=== PATIENT | male | born 1950 | race Caucasian/White ===

== ENCOUNTER 2020-07-24 13:13 | Inpatient (IN) | payer MEDICARE, MEDICAID ==
[~2020-07-24] VITALS: Ht 190.5 cm; Wt 111.9 kg
[2020-07-24 15:00] VITALS: BP 131/84
[2020-07-24] MEDS ORDERED: MAGNESIUM HYDROXIDE 2,400 MG/30 ML ORAL.SUSP. PO PRN (15:30)
[2020-07-24] MEDS ORDERED: METHYL SALICYLATE/MENTHOL TOPICAL OINTMENT 57GM TUBE. TP PRN (15:30)
[2020-07-24] MEDS ORDERED: MAG HYDROX/AL HYDROX/SIMETH 30 ML ORAL.SUSP PO PRN (15:30)
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
[2020-07-24] MEDS: NICOTINE POLACRILEX GUM 2 MG GUM. BC PRN ×2 (16:41→18:26)
--- NOTE | 2020-07-24 16:56 | NUR ---
Patient has been provided with Practical Counseling for tobacco cessation. It included a face to face interaction and the following was discussed: Recognizing danger situations, Developing coping skills,Basic cessation information. Will follow for discharge needs and discharge planning. Patient refuses and does not want to quit
[2020-07-24] MEDS: CALCIUM CARBONATE 500 MG TAB.CHEW PO PRN (18:28)
[2020-07-24 19:24] LABS: BACTERIA,URINE 0 /HPF (0-FEW); BILIRUBIN,URINE NEG (NEG); CLARITY,URINE CLEAR; COLOR,URINE YELLOW; GLUCOSE,URINE NEG (NEG); NITRITE,URINE NEG (NEG); RBC,URINE 0 /HPF (0-2); UROBILINOGEN,URINE 0.2 mg/dL (0.2 mg/dL); WBC,URINE 0 /HPF (0-4)
[2020-07-24] MEDS: LORazepam 1 MG TABLET PO SCH (19:36)
[2020-07-24] MEDS: risperiDONE 1 MG TABLET. PO SCH (19:37)
[2020-07-24] MEDS: QUEtiapine 100 MG TABLET. PO SCH (19:39)
[2020-07-24 21:03] LABS: ALBUMIN 3.6 g/dL (3.4-5.0); ALBUMIN/GLOBULIN RATIO 1.1 (1.0-1.7); CALCIUM 8.9 mg/dL (8.5-10.1); GFR 74.3; MAGNESIUM 2.4 mg/dL (1.8-2.4); POTASSIUM 3.9 mmol/L (3.5-5.1); TOTAL BILIRUBIN 0.1 mg/dL (0.2-1.0)
[2020-07-24 21:15] LABS: BASO # 0.1 x10^3/uL (0.0-0.2); BASO % 1 % (0-3); EOS # 0.2 x10^3/uL (0.0-0.7); EOS % 2 % (0-3); HEMATOCRIT 39.3 % (39.0-53.0); HEMOGLOBIN 12.9 g/dL (13.0-17.5); LYMPH # 1.3 x10^3/uL (1.0-4.8); LYMPH % 16 % (24-48); MEAN CORPUSCULAR HEMOGLOBIN 32 pg (25-35); MEAN CORPUSCULAR HGB CONC 33 g/dL (31-37); MEAN CORPUSCULAR VOLUME 98 fL (79-100); MONO # 0.9 x10^3/uL (0.0-1.1); MONO % 11 % (0-9); NEUT # 5.6 x10^3uL (1.8-7.7); NEUT % 70 % (31-73); PLATELET COUNT 327 x10^3/uL (140-400); RED BLOOD COUNT 4.01 x10^6/uL (4.30-5.70); RED CELL DISTRIBUTION WIDTH 14.5 % (11.5-14.5)
--- NOTE | 2020-07-24 21:36 | PDOC ---
Exam Note: David Note: Please also refer to the separate dictated note~for this date of service dictated separately.~Patient seen individually. Discussed the patient with Nursing staff reviewed the chart.~Reviewed interim history and current functioning. Reviewed vital signs,~Labs/ Radiology~and current medications noted below. Continue current treatment with the changes noted in the dictated addendum note Assessment: Vital Signs/I&O: Vital Signs Date Time Temp Pulse Resp B/P (MAP) Pulse Ox O2 Delivery O2 Flow Rate FiO2 07/24/20 15:00 98.8 92 18 131/84 (100) 96 Labs: Laboratory Tests Test 07/24/20 18:37 07/24/20 20:35 Urine Collection Type Unknown Urine Color Yellow Urine Clarity Clear Urine pH 6.5 Urine Specific [place] 1.015 Urine Protein Neg (NEG-TRACE) Urine Glucose (UA) Neg mg/dL (NEG) Urine Ketones (Stick) Neg mg/dL (NEG) Urine Blood Neg (NEG) Urine Nitrite Neg (NEG) Urine Bilirubin Neg (NEG) Urine Urobilinogen Dipstick 0.2 mg/dL (0.2 mg/dL) Urine Leukocyte Esterase Neg (NEG) Urine RBC 0 /HPF (0-2) Urine WBC 0 /HPF (0-4) Urine Squamous Epithelial Cells None /LPF Urine Bacteria 0 /HPF (0-FEW) White Blood Count 8.0 x10^3/uL (4.0-11.0) Red Blood Count 4.01 x10^6/uL (4.30-5.70) L Hemoglobin 12.9 g/dL (13.0-17.5) L Hematocrit 39.3 % (39.0-53.0) Mean Corpuscular Volume 98 fL (79-100) Mean Corpuscular Hemoglobin 32 pg (25-35) Mean Corpuscular Hemoglobin Concent 33 g/dL (31-37) Red Cell Distribution Width 14.5 % (11.5-14.5) Platelet Count 327 x10^3/uL (140-400) Neutrophils (%) (Auto) 70 % (31-73) Lymphocytes (%) (Auto) 16 % (24-48) L Monocytes (%) (Auto) 11 % (0-9) H Eosinophils (%) (Auto) 2 % (0-3) Basophils (%) (Auto) 1 % (0-3) Neutrophils # (Auto) 5.6 x10^3uL (1.8-7.7) Lymphocytes # (Auto) 1.3 x10^3/uL (1.0-4.8) Monocytes # (Auto) 0.9 x10^3/uL (0.0-1.1) Eosinophils # (Auto) 0.2 x10^3/uL (0.0-0.7) Basophils # (Auto) 0.1 x10^3/uL (0.0-0.2) D-Dimer (Julianna) 0.42 mg/L (0.00-0.50) Sodium Level 141 mmol/L (136-145) Potassium Level 3.9 mmol/L (3.5-5.1) Chloride Level 106 mmol/L (98-107) Carbon Dioxide Level 26 mmol/L (21-32) Anion Gap 9 (6-14) Blood Urea Nitrogen 16 mg/dL (8-26) Creatinine 1.0 mg/dL (0.7-1.3) Estimated GFR (Cockcroft-Gault) 74.3 BUN/Creatinine Ratio 16 (6-20) Glucose Level 118 mg/dL (70-99) H Calcium Level 8.9 mg/dL (8.5-10.1) Magnesium Level 2.4 mg/dL (1.8-2.4) Total Bilirubin 0.1 mg/dL (0.2-1.0) L Aspartate Amino Transferase (AST) 26 U/L (15-37) Alanine Aminotransferase (ALT) 23 U/L (16-63) Alkaline Phosphatase 71 U/L (46-116) Total Protein 7.0 g/dL (6.4-8.2) Albumin 3.6 g/dL (3.4-5.0) Albumin/Globulin Ratio 1.1 (1.0-1.7) Current Medications: Meds: Current Medications Medications (Trade) Dose Ordered Sig/Luciana Route PRN Reason Start Time Stop Time Status Last Admin Dose Admin Nicotine Polacrilex (Nicorette Gum) 2 mg PRN Q1HR PRN BC SMOKING CESSATION 07/24/20 16:30 07/24/20 18:26 Lorazepam (Ativan) 1.5 mg QHS PO 07/24/20 21:00 07/24/20 19:36 Risperidone (RisperDAL) 1.5 mg BID PO 07/24/20 21:00 07/24/20 19:37 Quetiapine Fumarate (SEROquel) 800 mg QHS PO 07/24/20 21:00 07/24/20 19:39 Calcium Carbonate/ Glycine (Tums) 1,000 mg PRN Q8HRS PRN PO INDIGESTION 07/24/20 17:00 07/24/20 18:28 I have reviewed the current psychotropics carefully including drug interactions. Risk benefit ratio favors no change other than as noted in my dictated progress note. Diagnosis: Problems: (1) Schizoaffective disorder, bipolar type ELIDIA VELA MD Jul 24, 2020 21:36
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
[2020-07-24] MEDS: ACETAMINOPHEN 325 MG TABLET PO PRN (21:57)
--- NOTE | 2020-07-24 22:35 | NUR ---
Patient was yelling and threatening to hurt staff at the beginning of this shift. Patient is an intimidating, tall 69 year old male. He was demanding his HS medications at 1900, nurses were still in report at that time. When nurse brought him medications he snatched them out of nurses hand and took them. Patient refused to answer any orientation questions and refused physical examination. He did verify his namer and and showed nurse his ID bracelet. At 2200 patient came to the nurses station and calmly requested tylenol for his back. PRN tylenol given per order.
[2020-07-25] MEDS: LEVOTHYROXINE 100 MCG TABLET PO SCH (06:11)
[2020-07-25 06:17] VITALS: BP 121/62
[2020-07-25] MEDS: NICOTINE POLACRILEX GUM 2 MG GUM. BC PRN ×5 (06:35→23:00)
[2020-07-25] MEDS: ACETAMINOPHEN 325 MG TABLET PO PRN (06:35)
[2020-07-25] MEDS: risperiDONE 1 MG TABLET. PO SCH ×2 (08:06→19:44)
[2020-07-25] MEDS: FLUoxetine HCL 20 MG CAPSULE PO SCH (08:06)
[2020-07-25] MEDS: LISINOPRIL 20 MG TABLET PO SCH (08:06)
[2020-07-25] MEDS: ASPIRIN CHEWABLE 81 MG TABLET. PO SCH (08:07)
[2020-07-25] MEDS ORDERED: NICOTINE 7MG PATCH. TD SCH (09:00)
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
--- NOTE | 2020-07-25 13:10 | NUR ---
AT invited pt to social work group. Pt asked if AT was going to be directing group. AT said that she was not going to be directing group right now. Pt brushed it off and said that he did not want to attend. AT said that social media editor was great and that he should join group. When pt was made aware social media editor was directing group he said "oh good, she is a looker just like you." Pt made his way down to group.
--- NOTE | 2020-07-25 13:32 | NUR ---
Pt appears much more social today. He appears appropriate in language and behaviors. He is alert to self, place, and situation, but not date. He is very talkative and displays flight of ideas. He tends to dominate most of the conversation. He is complaint with medications and staff requests. He denies SI/HI/pain. Tx Team meeting was during the morning, Dr Mason ordered Depakote ER 500 mg HS for mood with CBC/CMP/Valporic Acid draw on 07/28/20. Pt has no complaints or concerns at this time, he is able to make needs known. He will often exit his room to walk about but does not appear exit seeking. Will pass on to day shift.
[2020-07-25 14:10] LABS: THYROID STIM HORMONE (TSH) 0.597 uIU/mL (0.358-3.740)
[2020-07-25 14:12] LABS: THYROXINE 5.3 ug/dL (4.5-12.0)
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
[2020-07-25 16:09] VITALS: BP 125/87
[2020-07-25] MEDS: QUEtiapine 100 MG TABLET. PO SCH (19:43)
[2020-07-25] MEDS: DIVALPROEX ER 500 MG TAB.ER.24H PO SCH (19:44)
[2020-07-25] MEDS: LORazepam 1 MG TABLET PO SCH (19:47)
--- NOTE | 2020-07-25 21:15 | PDOC ---
Exam Note: David Note: Please also refer to the separate dictated note~for this date of service dictated separately.~Patient seen individually. Discussed the patient with Nursing staff reviewed the chart.~Reviewed interim history and current functioning. Reviewed vital signs,~Labs/ Radiology~and current medications noted below. Continue current treatment with the changes noted in the dictated addendum note Assessment: Vital Signs/I&O: Vital Signs Date Time Temp Pulse Resp B/P (MAP) Pulse Ox O2 Delivery O2 Flow Rate FiO2 07/25/20 16:09 98.4 81 20 125/87 (100) 97 07/25/20 06:17 Room Air I & O 07/24/20 07/24/20 07/25/20 15:00 23:00 07:00 Intake Total 840 ml Balance 840 ml Current Medications: Meds: Current Medications Medications (Trade) Dose Ordered Sig/Luciana Route PRN Reason Start Time Stop Time Status Last Admin Dose Admin Acetaminophen (Tylenol) 650 mg PRN Q6HRS PRN PO MILD PAIN / TEMP > 100.3'F 07/24/20 15:30 07/25/20 06:35 Multi-Ingredient Ointment (Analgesic Cord) 1 radha PRN QID PRN TP MUSCLE PAIN 07/24/20 15:30 Al Hydroxide/Mg Hydroxide (Mylanta Plus Xs) 15 ml PRN AFTMEALHC PRN PO DYSPEPSIA 07/24/20 15:30 Magnesium Hydroxide (Milk Of Magnesia) 2,400 mg PRN QHS PRN PO CONSTIPATION 07/24/20 15:30 Nicotine (Nicoderm Cq 7mg Patch) 1 patch DAILY TD 07/25/20 09:00 07/25/20 00:32 DC Nicotine Polacrilex (Nicorette Gum) 2 mg PRN Q1HR PRN BC SMOKING CESSATION 07/24/20 16:30 07/25/20 19:01 Aspirin (Aspirin Chewable) 81 mg DAILYWBKFT PO 07/25/20 08:00 07/25/20 08:07 Levothyroxine Sodium (Synthroid) 100 mcg DAILY06 PO 07/25/20 06:00 07/25/20 06:11 Lisinopril (Prinivil) 20 mg DAILY PO 07/25/20 09:00 07/25/20 08:06 Lorazepam (Ativan) 1 mg PRN Q4HRS PRN PO ANXIETY / AGITATION 07/24/20 17:00 Lorazepam (Ativan) 1.5 mg QHS PO 07/24/20 21:00 07/25/20 19:47 Fluoxetine HCl (PROzac) 20 mg DAILY PO 07/25/20 09:00 07/25/20 08:06 Risperidone (RisperDAL) 1.5 mg BID PO 07/24/20 21:00 07/25/20 19:44 Quetiapine Fumarate (SEROquel) 800 mg QHS PO 07/24/20 21:00 07/25/20 19:43 Calcium Carbonate/ Glycine (Tums) 1,000 mg PRN Q8HRS PRN PO INDIGESTION 07/24/20 17:00 07/24/20 18:28 Divalproex Sodium (Depakote Er) 500 mg QHS PO 07/25/20 21:00 07/25/20 19:44 Polyethylene Glycol (miraLAX) 17 gm DAILY PO 07/26/20 09:00 Ibuprofen (Motrin) 600 mg PRN Q6HRS PRN PO INFLAMMATION 07/25/20 15:45 Current Medications Medications (Trade) Dose Ordered Sig/Luciana Route PRN Reason Start Time Stop Time Status Last Admin Dose Admin Aspirin (Aspirin Chewable) 81 mg DAILYWBKFT PO 07/25/20 08:00 07/25/20 08:07 Levothyroxine Sodium (Synthroid) 100 mcg DAILY06 PO 07/25/20 06:00 07/25/20 06:11 Lisinopril (Prinivil) 20 mg DAILY PO 07/25/20 09:00 07/25/20 08:06 Fluoxetine HCl (PROzac) 20 mg DAILY PO 07/25/20 09:00 07/25/20 08:06 Divalproex Sodium (Depakote Er) 500 mg QHS PO 07/25/20 21:00 07/25/20 19:44 I have reviewed the current psychotropics carefully including drug interactions. Risk benefit ratio favors no change other than as noted in my dictated progress note. Diagnosis: Problems: (1) Bipolar I disorder, current or most recent episode manic, with psychotic features with mixed features (2) Anxiety disorder, unspecified (3) Impulse control disorder, unspecified (4) Schizoaffective disorder, bipolar type MIRIAN,MAN M MD Jul 25, 2020 21:15
--- NOTE | 2020-07-25 22:44 | NUR ---
Patient has been in the hallways multiple times tonight without his face mask despite being reminded to put it on. He has been demanding an Albuterol inhaler (he does not have one prescribed) and a Reynold. Patient has been observed coughing in the hallway and not covering his mouth while not wearing the mask. He has called staff "dumb ass" and "stupid bitch" several times but then has apologized about 15 minutes later each time.
[2020-07-26 01:41] LABS: HEMOGLOBIN A1C 5.8 % (4.8-5.6)
[2020-07-26] MEDS: NICOTINE POLACRILEX GUM 2 MG GUM. BC PRN ×3 (04:10→15:15)
[2020-07-26] MEDS: ACETAMINOPHEN 325 MG TABLET PO PRN ×2 (04:11→08:16)
[2020-07-26] MEDS: LEVOTHYROXINE 100 MCG TABLET PO SCH (04:13)
--- NOTE | 2020-07-26 04:13 | NUR ---
Patient has not been sleeping well. He has been up, sitting at his bedside table writing notes. Patient requests PRN tylenol for back pain and PRN nicotine gum. Given at this time per order. Patient has been encouraged to lay in bed and try to sleep multiple times by several staff members. Patient is continuing to come out into the hallway without his mask and must be reminded to go get it. AM thyroid pill given at this time as well so that patient will not need to be woke up if he is sleeping at that time.
[2020-07-26 06:21] VITALS: BP 130/82
[2020-07-26] MEDS: ASPIRIN CHEWABLE 81 MG TABLET. PO SCH (08:13)
[2020-07-26] MEDS: LISINOPRIL 20 MG TABLET PO SCH (08:14)
[2020-07-26] MEDS: FLUoxetine HCL 20 MG CAPSULE PO SCH (08:14)
[2020-07-26] MEDS: risperiDONE 1 MG TABLET. PO SCH ×2 (08:14→21:22)
[2020-07-26] MEDS: POLYETHYLENE GLYCOL 3350 17 GM PACKET. PO SCH (08:16)
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
[2020-07-26] MEDS: CALCIUM CARBONATE 500 MG TAB.CHEW PO PRN (15:15)
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
[2020-07-26 15:33] VITALS: BP 107/81
[2020-07-26 15:34] VITALS: BP 107/81
[2020-07-26] MEDS: NICOTINE 7MG PATCH. TD SCH (18:06)
--- NOTE | 2020-07-26 18:38 | NUR ---
Patient in hallway at time of assessment. Went to room to do head to toe. Patient is alert and oriented with no complaints. Patient takes medications whole with no problems. No further concerns at this time. I did change his Nicotine gum to a patch because he was asking for the gum more than 2 times an hour. He has done well with the patch today.
[2020-07-26] MEDS: QUEtiapine 100 MG TABLET. PO SCH (21:22)
[2020-07-26] MEDS: DIVALPROEX ER 500 MG TAB.ER.24H PO SCH (21:23)
[2020-07-26] MEDS: LORazepam 1 MG TABLET PO SCH (21:25)
--- NOTE | 2020-07-26 21:44 | PDOC ---
Exam Note: David Note: Please also refer to the separate dictated note~for this date of service dictated separately.~Patient seen individually. Discussed the patient with Nursing staff reviewed the chart.~Reviewed interim history and current functioning. Reviewed vital signs,~Labs/ Radiology~and current medications noted below. Continue current treatment with the changes noted in the dictated addendum note Assessment: Vital Signs/I&O: Vital Signs Date Time Temp Pulse Resp B/P (MAP) Pulse Ox O2 Delivery O2 Flow Rate FiO2 07/26/20 15:34 97.9 83 24 107/81 (90) 99 Room Air I & O 07/25/20 07/25/20 07/26/20 15:00 23:00 07:00 Intake Total 600 ml 840 ml Balance 600 ml 840 ml Current Medications: Meds: Current Medications Medications (Trade) Dose Ordered Sig/Luciana Route PRN Reason Start Time Stop Time Status Last Admin Dose Admin Polyethylene Glycol (miraLAX) 17 gm DAILY PO 07/26/20 09:00 07/26/20 08:16 Nicotine (Nicoderm Cq 7mg Patch) 1 patch DAILY TD 07/26/20 18:15 07/26/20 18:06 I have reviewed the current psychotropics carefully including drug interactions. Risk benefit ratio favors no change other than as noted in my dictated progress note. Diagnosis: Problems: (1) Schizoaffective disorder, bipolar type (2) Impulse control disorder, unspecified (3) Anxiety disorder, unspecified (4) Bipolar I disorder, current or most recent episode manic, with psychotic features with mixed features ELIDIA VELA MD Jul 26, 2020 21:44
--- NOTE | 2020-07-26 23:00 | NUR ---
Patient has been much less attention seeking than on previous days. He is still interrupting during conversations but seems calmer. Patient compliant with medications taken whole, he is sleeping better tonight than on the two previous nights. Patient is very social with female staff members.
[2020-07-27] MEDS: LEVOTHYROXINE 100 MCG TABLET PO SCH (04:54)
[2020-07-27] MEDS: ACETAMINOPHEN 325 MG TABLET PO PRN ×2 (04:54→23:11)
[2020-07-27 06:40] VITALS: BP 111/72
[2020-07-27] MEDS: ASPIRIN CHEWABLE 81 MG TABLET. PO SCH (07:54)
[2020-07-27] MEDS: LISINOPRIL 20 MG TABLET PO SCH (07:54)
[2020-07-27] MEDS: IBUPROFEN 600 MG TABLET. PO PRN (07:55)
[2020-07-27] MEDS: risperiDONE 1 MG TABLET. PO SCH ×2 (07:55→20:42)
[2020-07-27] MEDS: NICOTINE 7MG PATCH. TD SCH (07:55)
[2020-07-27] MEDS: FLUoxetine HCL 20 MG CAPSULE PO SCH (07:55)
[2020-07-27] MEDS: POLYETHYLENE GLYCOL 3350 17 GM PACKET. PO SCH (07:56)
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
--- NOTE | 2020-07-27 14:47 | PN ---
DATE: SUBJECTIVE: The patient was seen today, met with the staff, chart reviewed and also covering for Dr. Mason. The patient is not having any major behavior problems. The patient is compliant with treatment, still having problems with sleep. OBSERVATION: VITAL SIGNS: Temperature 98.5, blood pressure 111/72, pulse 88, respirations 16, O2 sat 96%. Slept about 3 hours last night. The patient is not presenting with any other behavior problems. No falls. MEDICATIONS: Reviewed. Currently on Depakote 500 mg at night, Prozac 20 mg daily, Seroquel 800 mg at night, Risperdal 1.5 mg twice a day. LABORATORY DATA: The patient's lab reviewed. ASSESSMENT: Schizoaffective disorder, bipolar type. PLAN: To continue with the current treatment plan. The patient apparently on two antipsychotic drugs. The patient apparently is taking magnesium dose of Seroquel continues to have problems. SERENA FERREIRA MD DR: CONSTANCE/lauro JOB#: [id number] / [id number]
[2020-07-27 15:45] VITALS: BP 124/69
--- NOTE | 2020-07-27 16:31 | NUR ---
Pt appears appropriate in language and behaviors. He is alert to self, place, and situation, and current month. He is very talkative and tends to dominate most of the conversation. It is often difficult to auscultate lung sounds because he has difficulty pausing what he has to say. He is complaint with medications and staff requests. He denies SI/HI. He reports 6/10 pain in the lower back, Ibuprofen 600 mg administered with reported effectiveness. Pt has no further complaints or concerns and he is able to make needs known. He will often exit his room to walk about but does not appear exit seeking. Will pass on to day shift.
[2020-07-27] MEDS: DIVALPROEX ER 500 MG TAB.ER.24H PO SCH (20:42)
[2020-07-27] MEDS: QUEtiapine 100 MG TABLET. PO SCH (20:42)
[2020-07-27] MEDS: LORazepam 1 MG TABLET PO SCH (20:45)
--- NOTE | 2020-07-27 21:22 | PDOC ---
Exam Note: David Note: This note is a late entry for 07/26/2020 covers elements not covered in my initial note. Subjective: The patient was reviewed on telehealth rounds in the evening of 07/26/2020 with Lee Ann MARSHALL. Discussed with nursing staff, reviewed the chart. He slept 2-1/2 hours previous night. The patient has been loud, somewhat hypomanic, and vocal. He is intrusive but redirects. Review of Systems: No CV, , pulmonary, eye, ENT system symptoms on review. Mental Status Exam: The patient is reasonably oriented. Speech is coherent, rapid at times. Abstraction is fair. Computation is impaired. Language function is intact. Attention span is short. Mood and affect remains labile. Laboratory Data: Reviewed. Impression: Bipolar 1 disorder, mixed with psychotic features versus schizoaffective disorder bipolar type mixed with psychotic features. Anxiety disorder unspecified. Impulse control disorder unspecified. Plan: No change from initial note. We have initiated Depakote ER. Follow labs level. Adjust further as clinically indicated. Assessment: Vital Signs/I&O: Vital Signs Date Time Temp Pulse Resp B/P (MAP) Pulse Ox O2 Delivery O2 Flow Rate FiO2 07/27/20 15:45 98.3 83 20 124/69 (87) 96 Room Air I & O 07/26/20 07/26/20 07/27/20 15:00 23:00 07:00 Intake Total 1720 ml 760 ml Balance 1720 ml 760 ml Current Medications: Meds: Current Medications Medications (Trade) Dose Ordered Sig/Luciana Route PRN Reason Start Time Stop Time Status Last Admin Dose Admin Acetaminophen (Tylenol) 650 mg PRN Q6HRS PRN PO MILD PAIN / TEMP > 100.3'F 07/24/20 15:30 07/27/20 04:54 Multi-Ingredient Ointment (Analgesic [place]) 1 radha PRN QID PRN TP MUSCLE PAIN 07/24/20 15:30 Al Hydroxide/Mg Hydroxide (Mylanta Plus Xs) 15 ml PRN AFTMEALHC PRN PO DYSPEPSIA 07/24/20 15:30 Magnesium Hydroxide (Milk Of Magnesia) 2,400 mg PRN QHS PRN PO CONSTIPATION 07/24/20 15:30 Nicotine (Nicoderm Cq 7mg Patch) 1 patch DAILY TD 07/25/20 09:00 07/25/20 00:32 DC Nicotine Polacrilex (Nicorette Gum) 2 mg PRN Q1HR PRN BC SMOKING CESSATION 07/24/20 16:30 07/26/20 16:33 DC 07/26/20 15:15 Aspirin (Aspirin Chewable) 81 mg DAILYWBKFT PO 07/25/20 08:00 07/27/20 07:54 Levothyroxine Sodium (Synthroid) 100 mcg DAILY06 PO 07/25/20 06:00 07/27/20 04:54 Lisinopril (Prinivil) 20 mg DAILY PO 07/25/20 09:00 07/27/20 07:54 Lorazepam (Ativan) 1 mg PRN Q4HRS PRN PO ANXIETY / AGITATION 07/24/20 17:00 Lorazepam (Ativan) 1.5 mg QHS PO 07/24/20 21:00 07/27/20 20:45 Fluoxetine HCl (PROzac) 20 mg DAILY PO 07/25/20 09:00 07/27/20 07:55 Risperidone (RisperDAL) 1.5 mg BID PO 07/24/20 21:00 07/27/20 20:42 Quetiapine Fumarate (SEROquel) 800 mg QHS PO 07/24/20 21:00 07/27/20 20:42 Calcium Carbonate/ Glycine (Tums) 1,000 mg PRN Q8HRS PRN PO INDIGESTION 07/24/20 17:00 07/26/20 15:15 Divalproex Sodium (Depakote Er) 500 mg QHS PO 07/25/20 21:00 07/27/20 20:42 Polyethylene Glycol (miraLAX) 17 gm DAILY PO 07/26/20 09:00 07/27/20 07:56 Ibuprofen (Motrin) 600 mg PRN Q6HRS PRN PO INFLAMMATION 07/25/20 15:45 07/27/20 07:55 Nicotine (Nicoderm Cq 7mg Patch) 1 patch DAILY TD 07/26/20 18:15 07/27/20 07:55 I have reviewed the current psychotropics carefully including drug interactions. Risk benefit ratio favors no change other than as noted in my dictated progress note. Diagnosis: Problems: (1) Schizoaffective disorder, bipolar type (2) Impulse control disorder, unspecified (3) Anxiety disorder, unspecified (4) Bipolar I disorder, current or most recent episode manic, with psychotic features with mixed features ELIDIA VELA MD Jul 27, 2020 21:22
--- NOTE | 2020-07-27 23:57 | NUR ---
Patient sitting in [facility], chatting with other patients, jovial, joking with staff and patients. He used the yury to listen to music. He was patient in waiting for medications and snacks. Pt c/o restless legs, insomnia and need to keep moving. Tylenol given for left lower hip pain. Will continue to monitor.
[2020-07-28] MEDS: LORazepam 1 MG TABLET PO PRN ×3 (02:21→23:40)
[2020-07-28] MEDS: LEVOTHYROXINE 100 MCG TABLET PO SCH (05:21)
[2020-07-28 06:52] VITALS: BP 125/86
[2020-07-28] MEDS: FLUoxetine HCL 20 MG CAPSULE PO SCH (07:26)
[2020-07-28] MEDS: NICOTINE 7MG PATCH. TD SCH (07:26)
[2020-07-28] MEDS: risperiDONE 1 MG TABLET. PO SCH ×2 (07:26→19:38)
[2020-07-28] MEDS: POLYETHYLENE GLYCOL 3350 17 GM PACKET. PO SCH (07:26)
[2020-07-28] MEDS: ASPIRIN CHEWABLE 81 MG TABLET. PO SCH (07:26)
[2020-07-28] MEDS: LISINOPRIL 20 MG TABLET PO SCH (07:27)
[2020-07-28 10:54] LABS: BASO # 0.1 x10^3/uL (0.0-0.2); BASO % 1 % (0-3); EOS # 0.1 x10^3/uL (0.0-0.7); EOS % 1 % (0-3); HEMATOCRIT 40.4 % (39.0-53.0); HEMOGLOBIN 13.1 g/dL (13.0-17.5); LYMPH # 1.3 x10^3/uL (1.0-4.8); LYMPH % 15 % (24-48); MEAN CORPUSCULAR HEMOGLOBIN 32 pg (25-35); MEAN CORPUSCULAR HGB CONC 33 g/dL (31-37); MEAN CORPUSCULAR VOLUME 98 fL (79-100); MONO # 0.7 x10^3/uL (0.0-1.1); MONO % 8 % (0-9); NEUT # 6.6 x10^3uL (1.8-7.7); NEUT % 75 % (31-73); PLATELET COUNT 347 x10^3/uL (140-400); RED BLOOD COUNT 4.13 x10^6/uL (4.30-5.70); RED CELL DISTRIBUTION WIDTH 14.6 % (11.5-14.5); WHITE BLOOD COUNT 8.9 x10^3/uL (4.0-11.0)
[2020-07-28 11:20] LABS: ALBUMIN 3.5 g/dL (3.4-5.0); ALK PHOS 60 U/L (46-116); ALT (SGPT) 21 U/L (16-63); ANION GAP 8 (6-14); AST (SGOT) 18 U/L (15-37); BLOOD UREA NITROGEN 14 mg/dL (8-26); BUN/CREATININE RATIO 18 (6-20); CALCIUM 8.7 mg/dL (8.5-10.1); CARBON DIOXIDE 24 mmol/L (21-32); CHLORIDE 107 mmol/L (98-107); CREATININE 0.8 mg/dL (0.7-1.3); GFR 96.1; GLUCOSE 100 mg/dL (70-99); POTASSIUM 4.6 mmol/L (3.5-5.1); SODIUM 139 mmol/L (136-145); TOTAL BILIRUBIN 0.2 mg/dL (0.2-1.0); TOTAL PROTEIN 6.9 g/dL (6.4-8.2)
[2020-07-28 11:21] LABS: VAL ACID 25 mcg/mL (50-100)
--- NOTE | 2020-07-28 13:27 | PN ---
DATE: 07/28/2020 SUBJECTIVE: The patient was seen today, met with the staff, chart reviewed. The patient still attention seeking, has some flight of ideas, talkative, demanding, intrusive. He is medication compliant. OBSERVATION: VITAL SIGNS: Temperature 98.1, blood pressure 125/86, pulse 88, respirations 18, O2 sat 96%. GENERAL: Slept about 2 hours last night. CURRENT MEDICATIONS: The patient's current medications include Depakote 500 mg at night, Prozac 20 mg daily, Seroquel 800 mg at night, Risperdal 1.5 mg twice a day. The patient is not having any major side effects. ASSESSMENT: Schizoaffective disorder, bipolar type. PLAN: To continue with the current treatment plan. LENGTH OF STAY: 5-7 days. SERENA FERREIRA MD DR: CONSTANCE/lauro JOB#: [id number] / [id number]
--- NOTE | 2020-07-28 13:54 | NUR ---
Pt appears appropriate in language and behaviors. He is alert to self, place, and situation, and current month. He is very talkative and tends to dominate most of the conversation. He often hoovers around the nurse station with medication requests, this particular behavior started at approx 0700 during change of shift reporting with table games shift manager. While his medications were being collected and scanned he continued to sood and repeat his requests for medications. He often requires multiple attempts at redirection and reassurance regarding his requests and needs. It is often difficult to auscultate lung sounds because he has difficulty pausing what he has to say. He is complaint with medications and staff requests after a couple repeats of said request. He denies SI/HI. He will often exit his room to walk about but does not appear exit seeking. He has made multiple requests for prescription/medicated shampoo d/t having psoriasis on scalp. This nurse will discuss pt needs with Dr Diop during rounds. Will pass on to day shift.
[2020-07-28] MEDS ORDERED: KETOCONAZOLE 2% SHAMPOO 120ML BOTTLE. TP PRN (14:15)
[2020-07-28 16:12] VITALS: BP 159/90
[2020-07-28] MEDS: QUEtiapine 100 MG TABLET. PO SCH (19:37)
[2020-07-28] MEDS: DIVALPROEX ER 500 MG TAB.ER.24H PO SCH (19:38)
[2020-07-28] MEDS: ACETAMINOPHEN 325 MG TABLET PO PRN (19:38)
[2020-07-28] MEDS: LORazepam 1 MG TABLET PO SCH (19:39)
[2020-07-28] MEDS: CALCIUM CARBONATE 500 MG TAB.CHEW PO PRN (21:48)
--- NOTE | 2020-07-28 22:53 | NUR ---
Nursing Notes: Pt sitting in hallway at shift change. Pt A/O, interactive but intrusive, demanding at times and becomes agitated when staff attempts to re-direct him. Pt swearing and yelling at staff and slamming door closed after being asked to pickle cutter his discarded items in the hallway. Pt medication seeking and has presented to the nurse's station multiple times this evening to ask for PRN medications which began before 1900. PRN Tylenol administered for L hip pain and PRN Tums administered for indigestion. Pt requested PRN Ativan but was advised that it was too early to receive as he had had his HS dosage less than two hours prior.
--- NOTE | 2020-07-28 23:11 | NUR ---
Nursing Note: Pt back up to nurse's station requesting PRN Ativan. As I was getting his medication and preparing to administer it, pt became belligerent with a staff member, calling her names and telling her to "shut up". When I entered the hallway to intervene, pt raising his voice and when told he needed to quiet down, he stated "you haven't seen nothing yet". 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 Pt was once again asked to lower his voice pt once again got upset and proceeded to go back to his room. PRN Ativan was then wasted. Pt returned to the nurse's station approximately 5 minutes later wanting the PRN Ativan again. Pt was told that he would have to wait. Pt appeared to accept this and returned to his room.
--- NOTE | 2020-07-28 23:51 | NUR ---
Nursing Note: Pt back up to nurse's station requesting PRN Ativan. Pt was advised that he needed to work on controlling the way he speaks to others. Pt reported that he just can't help it and that "my mouthiness must be a side effect of the medications I'm on". I advised pt that "mouthiness" is not a side effect of his meds and advised him that he needed to apologize to the staff for speaking to them the way that he did. Pt did as he was asked and he was told that he needs to work on this in the future to which he agreed. PRN Ativan administered @2340 and pt was advised that he needed to return to his room for the night and get some rest.
[2020-07-29] MEDS: LEVOTHYROXINE 100 MCG TABLET PO SCH (04:48)
[2020-07-29] MEDS: ACETAMINOPHEN 325 MG TABLET PO PRN ×2 (04:48→20:06)
[2020-07-29 06:10] VITALS: BP 158/94
[2020-07-29] MEDS: POLYETHYLENE GLYCOL 3350 17 GM PACKET. PO SCH (08:03)
[2020-07-29] MEDS: ASPIRIN CHEWABLE 81 MG TABLET. PO SCH (08:04)
[2020-07-29] MEDS: NICOTINE 7MG PATCH. TD SCH (08:04)
[2020-07-29] MEDS: FLUoxetine HCL 20 MG CAPSULE PO SCH (08:04)
[2020-07-29] MEDS: LISINOPRIL 20 MG TABLET PO SCH (08:04)
[2020-07-29] MEDS: risperiDONE 1 MG TABLET. PO SCH (08:04)
--- NOTE | 2020-07-29 10:03 | NUR ---
Pt has been appropriate so far during shift aside from being intrusive and dominating. He began hoovering around the nurse station making various requests (shampoo, [place], medications) right at 0700 and interrupting change of shift reporting. He in particular wanted to listen to rock and roll music on the [place], but he plays the music loudly and out of consideration for other patients who were still sleeping his request had to be postponed until a more appropriate time. He is med complaint and complaint with staff requests after a couple occasions of the request needing to be repeated. He is social with other patients and has been participating in group activities. He is A&Ox4, denies pain at this time, denies HI/SI/VH/AH.
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
[2020-07-29] MEDS: LORazepam 1 MG TABLET PO PRN (15:58)
--- NOTE | 2020-07-29 15:59 | NUR ---
PRN Ativan 1 mg PO administered due to high agitation/anxiety (see previous note by this nurse regarding circumstances).
[2020-07-29 16:34] VITALS: BP 159/103
[2020-07-29 17:42] VITALS: BP 160/100
[2020-07-29] MEDS ORDERED: amLODIPine BESYLATE 5 MG TABLET PO ONE (18:00)
--- NOTE | 2020-07-29 18:05 | NUR ---
CHAR HOUSE SUPERVISOR's reported that pt's evening BP was 159/103. This nurse obtained manual BP which read 160/100. Pt had a large amount of tissue up his nose and c/o a bloody nose, however the tissue up his nose had no blood on it. He also c/o headache. Dr Diop contacted and the following orders were given: 1. Administer Amlodipine 5 mg PO one time now for HTN. 2. Amlodipine 5 mg PO scheduled in the morning for HTN. Orders read back and verified. Stat one time dose of Amlodipine administered by JOANNA Adams with no difficulty.
[2020-07-29] MEDS: QUEtiapine 100 MG TABLET. PO SCH (20:02)
[2020-07-29] MEDS: clonazePAM 1 MG TABLET PO SCH (20:02)
[2020-07-29] MEDS: DIVALPROEX ER 500 MG TAB.ER.24H PO SCH (20:02)
[2020-07-29] MEDS: risperiDONE 2 MG TABLET. PO SCH (20:04)
--- NOTE | 2020-07-29 21:10 | PDOC ---
Exam Note: David Note: Please also refer to the separate dictated note~for this date of service dictated separately.~Patient seen individually. Discussed the patient with Nursing staff reviewed the chart.~Reviewed interim history and current functioning. Reviewed vital signs,~Labs/ Radiology~and current medications noted below. Continue current treatment with the changes noted in the dictated addendum note Assessment: Vital Signs/I&O: Vital Signs Date Time Temp Pulse Resp B/P (MAP) Pulse Ox O2 Delivery O2 Flow Rate FiO2 07/29/20 17:54 86 160/100 07/29/20 16:34 98.8 16 98 07/27/20 15:45 Room Air I & O 07/28/20 07/28/20 07/29/20 15:00 23:00 07:00 Intake Total 660 ml 600 ml Balance 660 ml 600 ml Current Medications: Meds: Current Medications Medications (Trade) Dose Ordered Sig/Luciana Route PRN Reason Start Time Stop Time Status Last Admin Dose Admin Amlodipine Besylate (Norvasc) 5 mg 1X ONCE PO 07/29/20 18:00 07/29/20 18:01 DC 07/29/20 17:54 Divalproex Sodium (Depakote Er) 1,000 mg QHS PO 07/29/20 21:00 07/29/20 20:02 Risperidone (RisperDAL) 2 mg BID PO 07/29/20 21:00 07/29/20 20:04 Clonazepam (KlonoPIN) 1 mg HS PO 07/29/20 21:00 07/29/20 20:02 I have reviewed the current psychotropics carefully including drug interactions. Risk benefit ratio favors no change other than as noted in my dictated progress note. Diagnosis: Problems: (1) Schizoaffective disorder, bipolar type (2) Impulse control disorder, unspecified (3) Anxiety disorder, unspecified (4) Bipolar I disorder, current or most recent episode manic, with psychotic features with mixed features ELIDIA VELA MD Jul 29, 2020 21:10
--- NOTE | 2020-07-29 22:52 | NUR ---
Nursing Note: Pt ambulating in hallway at shift change. Pt intrusive, impulsive, attention seeking, and defensive. Pt hovers at the nurse's station requesting medications, asking random questions, or making requests. Pt has been encouraged multiple times to lie down and get some rest but he does not comply. Pt became defensive when I was talking to him about his behaviors today on the previous shift. He stated "but that was yesterday". I reminded him that in fact, it was today on the day shift. "Well, what time is it?" Pt was told that it was after 7pm and he replied "oh. I thought it was a different day". Staff also monitoring his fluid intake because he had made a statement to the activity therapist that he intentionally drinks a lot of water and voids frequently, which could be viewed as an attempt to flush out his medications.
[2020-07-29 23:02] VITALS: BP 152/84
[2020-07-30] MEDS: ACETAMINOPHEN 325 MG TABLET PO PRN ×3 (05:00→19:59)
[2020-07-30] MEDS: LEVOTHYROXINE 100 MCG TABLET PO SCH (05:00)
[2020-07-30] MEDS: LORazepam 1 MG TABLET PO PRN (05:01)
[2020-07-30 05:43] VITALS: BP 134/87
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
[2020-07-30] MEDS: ASPIRIN CHEWABLE 81 MG TABLET. PO SCH (09:55)
[2020-07-30] MEDS: risperiDONE 2 MG TABLET. PO SCH ×2 (09:55→19:58)
[2020-07-30] MEDS: POLYETHYLENE GLYCOL 3350 17 GM PACKET. PO SCH (09:56)
[2020-07-30] MEDS: NICOTINE 7MG PATCH. TD SCH (09:56)
[2020-07-30] MEDS: FLUoxetine HCL 20 MG CAPSULE PO SCH (09:56)
[2020-07-30] MEDS: LISINOPRIL 20 MG TABLET PO SCH (09:56)
[2020-07-30] MEDS: clonazePAM 0.5 MG TABLET PO SCH ×2 (09:57→13:46)
[2020-07-30] MEDS: amLODIPine BESYLATE 5 MG TABLET PO SCH (09:58)
[2020-07-30 16:12] VITALS: BP 142/82
[2020-07-30] MEDS: clonazePAM 1 MG TABLET PO SCH (19:58)
[2020-07-30] MEDS: DIVALPROEX ER 500 MG TAB.ER.24H PO SCH (19:58)
[2020-07-30] MEDS: QUEtiapine 100 MG TABLET. PO SCH (19:59)
[2020-07-30] MEDS ORDERED: traZODone 100 MG TABLET. PO SCH (21:00)
--- NOTE | 2020-07-30 21:10 | PDOC ---
Exam Note: David Note: Please also refer to the separate dictated note~for this date of service dictated separately.~Patient seen individually. Discussed the patient with Nursing staff reviewed the chart.~Reviewed interim history and current functioning. Reviewed vital signs,~Labs/ Radiology~and current medications noted below. Continue current treatment with the changes noted in the dictated addendum note Assessment: Vital Signs/I&O: Vital Signs Date Time Temp Pulse Resp B/P (MAP) Pulse Ox O2 Delivery O2 Flow Rate FiO2 07/30/20 16:12 98.8 84 19 142/82 (102) 97 07/29/20 23:02 Room Air I & O 07/29/20 07/29/20 07/30/20 14:59 22:59 06:59 Intake Total 720 ml 600 ml Balance 720 ml 600 ml Current Medications: Meds: Current Medications Medications (Trade) Dose Ordered Sig/Luciana Route PRN Reason Start Time Stop Time Status Last Admin Dose Admin Acetaminophen (Tylenol) 650 mg PRN Q6HRS PRN PO MILD PAIN / TEMP > 100.3'F 07/24/20 15:30 07/30/20 19:59 Multi-Ingredient Ointment (Analgesic [place]) 1 radha PRN QID PRN TP MUSCLE PAIN 07/24/20 15:30 Al Hydroxide/Mg Hydroxide (Mylanta Plus Xs) 15 ml PRN AFTMEALHC PRN PO DYSPEPSIA 07/24/20 15:30 Magnesium Hydroxide (Milk Of Magnesia) 2,400 mg PRN QHS PRN PO CONSTIPATION 07/24/20 15:30 Nicotine (Nicoderm Cq 7mg Patch) 1 patch DAILY TD 07/25/20 09:00 07/25/20 00:32 DC Nicotine Polacrilex (Nicorette Gum) 2 mg PRN Q1HR PRN BC SMOKING CESSATION 07/24/20 16:30 07/26/20 16:33 DC 07/26/20 15:15 Aspirin (Aspirin Chewable) 81 mg DAILYWBKFT PO 07/25/20 08:00 07/30/20 09:55 Levothyroxine Sodium (Synthroid) 100 mcg DAILY06 PO 07/25/20 06:00 07/30/20 05:00 Lisinopril (Prinivil) 20 mg DAILY PO 07/25/20 09:00 07/30/20 09:56 Lorazepam (Ativan) 1 mg PRN Q4HRS PRN PO ANXIETY / AGITATION 07/24/20 17:00 07/30/20 05:01 Lorazepam (Ativan) 1.5 mg QHS PO 07/24/20 21:00 07/29/20 18:41 DC 07/28/20 19:39 Fluoxetine HCl (PROzac) 20 mg DAILY PO 07/25/20 09:00 07/30/20 18:04 DC 07/30/20 09:56 Risperidone (RisperDAL) 1.5 mg BID PO 07/24/20 21:00 07/29/20 18:41 DC 07/29/20 08:04 Quetiapine Fumarate (SEROquel) 800 mg QHS PO 07/24/20 21:00 07/30/20 19:59 Calcium Carbonate/ Glycine (Tums) 1,000 mg PRN Q8HRS PRN PO INDIGESTION 07/24/20 17:00 07/28/20 21:48 Divalproex Sodium (Depakote Er) 500 mg QHS PO 07/25/20 21:00 07/29/20 18:41 DC 07/28/20 19:38 Polyethylene Glycol (miraLAX) 17 gm DAILY PO 07/26/20 09:00 07/30/20 09:56 Ibuprofen (Motrin) 600 mg PRN Q6HRS PRN PO INFLAMMATION 07/25/20 15:45 07/27/20 07:55 Nicotine (Nicoderm Cq 7mg Patch) 1 patch DAILY TD 07/26/20 18:15 07/30/20 09:56 Ketoconazole (Nizoral 2% Shampoo) 1 radha PRN DAILY PRN TP SEE COMMENTS 07/28/20 14:15 Amlodipine Besylate (Norvasc) 5 mg 1X ONCE PO 07/29/20 18:00 07/29/20 18:01 DC 07/29/20 17:54 Amlodipine Besylate (Norvasc) 5 mg DAILY PO 07/30/20 09:00 07/30/20 09:58 Divalproex Sodium (Depakote Er) 1,000 mg QHS PO 07/29/20 21:00 07/30/20 19:58 Risperidone (RisperDAL) 2 mg BID PO 07/29/20 21:00 07/30/20 19:58 Clonazepam (KlonoPIN) 1 mg HS PO 07/29/20 21:00 07/30/20 19:58 Clonazepam (KlonoPIN) 0.5 mg 0900,1300 PO 07/30/20 09:00 07/30/20 13:46 Trazodone HCl (Desyrel) 100 mg QHS PO 07/30/20 21:00 07/30/20 19:58 Current Medications Medications (Trade) Dose Ordered Sig/Luciana Route PRN Reason Start Time Stop Time Status Last Admin Dose Admin Amlodipine Besylate (Norvasc) 5 mg DAILY PO 07/30/20 09:00 07/30/20 09:58 Clonazepam (KlonoPIN) 0.5 mg 0900,1300 PO 07/30/20 09:00 07/30/20 13:46 Trazodone HCl (Desyrel) 100 mg QHS PO 07/30/20 21:00 07/30/20 19:58 I have reviewed the current psychotropics carefully including drug interactions. Risk benefit ratio favors no change other than as noted in my dictated progress note. Diagnosis: Problems: (1) Schizoaffective disorder, bipolar type (2) Impulse control disorder, unspecified (3) Anxiety disorder, unspecified (4) Bipolar I disorder, current or most recent episode manic, with psychotic features with mixed features ELIDIA VELA MD Jul 30, 2020 21:10
[2020-07-30] MEDS ORDERED: traZODone 100 MG TABLET. PO PRN (23:15)
--- NOTE | 2020-07-31 02:29 | NUR ---
Nursing Note: Pt sitting in room at shift change. Pt has been calm, less impulsive and disruptive this evening. Pt has also been less medication seeking this evening as well, only asking for PRN medications twice thus far. Pt cooperative with assessment and compliant with medications administered whole. Pt started on Trazodone 100mg at HS tonight with a repeat dose administered @2317. Pt finally laid down in bed @0200 and is currently lying in bed with eyes closed.
[2020-07-31] MEDS: LEVOTHYROXINE 100 MCG TABLET PO SCH (05:39)
[2020-07-31] MEDS: LORazepam 1 MG TABLET PO PRN (05:49)
[2020-07-31] MEDS: ACETAMINOPHEN 325 MG TABLET PO PRN (05:50)
[2020-07-31 06:38] VITALS: BP 124/73
[2020-07-31] MEDS: ASPIRIN CHEWABLE 81 MG TABLET. PO SCH (07:52)
[2020-07-31] MEDS: amLODIPine BESYLATE 5 MG TABLET PO SCH (07:52)
[2020-07-31] MEDS: POLYETHYLENE GLYCOL 3350 17 GM PACKET. PO SCH (07:52)
[2020-07-31] MEDS: clonazePAM 0.5 MG TABLET PO SCH ×2 (07:52→13:00)
[2020-07-31] MEDS: LISINOPRIL 20 MG TABLET PO SCH (07:52)
[2020-07-31] MEDS: risperiDONE 2 MG TABLET. PO SCH ×2 (07:53→20:55)
[2020-07-31] MEDS: NICOTINE 7MG PATCH. TD SCH (07:53)
--- NOTE | 2020-07-31 11:01 | NUR ---
Patient sitting in chair eating breakfast at time of assessment. Patient is very active today and is attention seeking. He comes to the window at the nurses station every 5 minutes for something new. The yury, he needs tylenol, the yury. He does much better with boundaries. If he is told what the expectation is he is more to follow the rule then to keep coming up and asking for things. He asks if he had prozac in his medications so we reviewed his medications and discussed why we changed the prozac. He has no further questions at this time. No further concerns at this time.
--- NOTE | 2020-07-31 14:24 | EKG ---
[address] [address] Test Date: 2020-07-24 Test Time: 17:15:18 Pat Name: CATHY RODRÍGUEZ Department: Room: [address] [place] [address] Gender: M Toy Department Manager: : [id number] Requested By: ELIDIA VELA Order Number: [id number] Reading MD: Measurements Intervals [place] Rate: P: RI: QRS: QRSD: T: QT: QTc: Interpretive Statements
[2020-07-31] MEDS: IBUPROFEN 600 MG TABLET. PO PRN ×2 (15:05→16:32)
--- NOTE | 2020-07-31 15:08 | NUR ---
Patient states that his tailbone hurts from sitting down to hard. He says he forgets how hard the chairs are and he sits to hard. Asking for Motrin. Motrin 600mg given to patient. States pain is 6/10
[2020-07-31 15:23] VITALS: BP 153/78
[2020-07-31] MEDS ORDERED: traZODone 50 MG TABLET. PO ONE (17:15)
--- NOTE | 2020-07-31 17:27 | NUR ---
Spoke to Dr Mason and let him know that patient is very obsessed with medications, med seeking, attention seeking, only slept for 1.5 hours last night. He would like the following Remeron 7.5mg QHS. Trazadone 25mg TID, 0900,1300,1700 daily. One time dose of 50mg Trazadone right now and then increase night time dose of Trazadone to 200mg with 1 time repeat dose of 100mg PRN. All orders put in and sent to pharmacy.
[2020-07-31] MEDS: clonazePAM 1 MG TABLET PO SCH (20:54)
[2020-07-31] MEDS: MIRTAZAPINE 7.5 MG TABLET. PO SCH (20:54)
[2020-07-31] MEDS: traZODone 100 MG TABLET. PO SCH (20:54)
[2020-07-31] MEDS: DIVALPROEX ER 500 MG TAB.ER.24H PO SCH (20:54)
[2020-07-31] MEDS: QUEtiapine 100 MG TABLET. PO SCH (20:55)
--- NOTE | 2020-07-31 21:15 | PDOC ---
Exam Note: David Note: Please also refer to the separate dictated note~for this date of service dictated separately.~Patient seen individually. Discussed the patient with Nursing staff reviewed the chart.~Reviewed interim history and current functioning. Reviewed vital signs,~Labs/ Radiology~and current medications noted below. Continue current treatment with the changes noted in the dictated addendum note Assessment: Vital Signs/I&O: Vital Signs Date Time Temp Pulse Resp B/P (MAP) Pulse Ox O2 Delivery O2 Flow Rate FiO2 07/31/20 15:23 98.8 88 17 153/78 (103) 94 07/31/20 06:38 Room Air I & O 07/30/20 07/30/20 07/31/20 15:00 23:00 07:00 Intake Total 800 ml 790 ml Balance 800 ml 790 ml Current Medications: Meds: Current Medications Medications (Trade) Dose Ordered Sig/Luciana Route PRN Reason Start Time Stop Time Status Last Admin Dose Admin Acetaminophen (Tylenol) 650 mg PRN Q6HRS PRN PO MILD PAIN / TEMP > 100.3'F 07/24/20 15:30 07/31/20 05:50 Multi-Ingredient Ointment (Analgesic [place]) 1 radha PRN QID PRN TP MUSCLE PAIN 07/24/20 15:30 Al Hydroxide/Mg Hydroxide (Mylanta Plus Xs) 15 ml PRN AFTMEALHC PRN PO DYSPEPSIA 07/24/20 15:30 Magnesium Hydroxide (Milk Of Magnesia) 2,400 mg PRN QHS PRN PO CONSTIPATION 07/24/20 15:30 Nicotine (Nicoderm Cq 7mg Patch) 1 patch DAILY TD 07/25/20 09:00 07/25/20 00:32 DC Nicotine Polacrilex (Nicorette Gum) 2 mg PRN Q1HR PRN BC SMOKING CESSATION 07/24/20 16:30 07/26/20 16:33 DC 07/26/20 15:15 Aspirin (Aspirin Chewable) 81 mg DAILYWBKFT PO 07/25/20 08:00 07/31/20 07:52 Levothyroxine Sodium (Synthroid) 100 mcg DAILY06 PO 07/25/20 06:00 07/31/20 05:39 Lisinopril (Prinivil) 20 mg DAILY PO 07/25/20 09:00 07/31/20 07:52 Lorazepam (Ativan) 1 mg PRN Q4HRS PRN PO ANXIETY / AGITATION 07/24/20 17:00 07/31/20 05:49 Lorazepam (Ativan) 1.5 mg QHS PO 07/24/20 21:00 07/29/20 18:41 DC 07/28/20 19:39 Fluoxetine HCl (PROzac) 20 mg DAILY PO 07/25/20 09:00 07/30/20 18:04 DC 07/30/20 09:56 Risperidone (RisperDAL) 1.5 mg BID PO 07/24/20 21:00 07/29/20 18:41 DC 07/29/20 08:04 Quetiapine Fumarate (SEROquel) 800 mg QHS PO 07/24/20 21:00 07/31/20 20:55 Calcium Carbonate/ Glycine (Tums) 1,000 mg PRN Q8HRS PRN PO INDIGESTION 07/24/20 17:00 07/28/20 21:48 Divalproex Sodium (Depakote Er) 500 mg QHS PO 07/25/20 21:00 07/29/20 18:41 DC 07/28/20 19:38 Polyethylene Glycol (miraLAX) 17 gm DAILY PO 07/26/20 09:00 07/31/20 07:52 Ibuprofen (Motrin) 600 mg PRN Q6HRS PRN PO INFLAMMATION 07/25/20 15:45 07/31/20 15:05 Nicotine (Nicoderm Cq 7mg Patch) 1 patch DAILY TD 07/26/20 18:15 07/31/20 07:53 Ketoconazole (Nizoral 2% Shampoo) 1 radha PRN DAILY PRN TP SEE COMMENTS 07/28/20 14:15 Amlodipine Besylate (Norvasc) 5 mg 1X ONCE PO 07/29/20 18:00 07/29/20 18:01 DC 07/29/20 17:54 Amlodipine Besylate (Norvasc) 5 mg DAILY PO 07/30/20 09:00 07/31/20 07:52 Divalproex Sodium (Depakote Er) 1,000 mg QHS PO 07/29/20 21:00 07/31/20 20:54 Risperidone (RisperDAL) 2 mg BID PO 07/29/20 21:00 07/31/20 20:55 Clonazepam (KlonoPIN) 1 mg HS PO 07/29/20 21:00 07/31/20 20:54 Clonazepam (KlonoPIN) 0.5 mg 0900,1300 PO 07/30/20 09:00 07/31/20 13:00 Trazodone HCl (Desyrel) 100 mg QHS PO 07/30/20 21:00 07/31/20 17:18 DC 07/30/20 19:58 Trazodone HCl (Desyrel) 100 mg PRN QHS PRN PO INSOMNIA 07/30/20 23:15 07/30/20 23:17 Trazodone HCl (Desyrel) 200 mg QHS PO 07/31/20 21:00 07/31/20 20:54 Trazodone HCl (Desyrel) 25 mg TID@0900,1300,1700 PO 08/01/20 09:00 Trazodone HCl (Desyrel) 50 mg 1X ONCE PO 07/31/20 17:15 07/31/20 17:32 DC 07/31/20 17:15 Mirtazapine (Remeron) 7.5 mg QHS PO 07/31/20 21:00 07/31/20 20:54 Current Medications Medications (Trade) Dose Ordered Sig/Lcu[place] Route PRN Reason Start Time Stop Time Status Last Admin Dose Admin Trazodone HCl (Desyrel) 100 mg PRN QHS PRN PO INSOMNIA 07/30/20 23:15 07/30/20 23:17 Trazodone HCl (Desyrel) 200 mg QHS PO 07/31/20 21:00 07/31/20 20:54 Trazodone HCl (Desyrel) 50 mg 1X ONCE PO 07/31/20 17:15 07/31/20 17:32 DC 07/31/20 17:15 Mirtazapine (Remeron) 7.5 mg QHS PO 07/31/20 21:00 07/31/20 20:54 I have reviewed the current psychotropics carefully including drug interactions. Risk benefit ratio favors no change other than as noted in my dictated progress note. Diagnosis: Problems: (1) Schizoaffective disorder, bipolar type (2) Impulse control disorder, unspecified (3) Anxiety disorder, unspecified (4) Bipolar I disorder, current or most recent episode manic, with psychotic features with mixed features ELIDIA VELA MD Jul 31, 2020 21:15
--- NOTE | 2020-07-31 21:15 | PDOC ---
Exam Note: David Note: This note is a late entry for 07/30/2020 covers elements not covered in my initial note. Subjective: The patient was reviewed on telehealth rounds in the evening of 07/30/2020. Discussed with nursing staff, reviewed the chart. He did not sleep at all previous night. The patient has been somewhat manic, hyperactive, impulsive but less aggressive though somewhat grandiose and demanding at times. Review of Systems: No CV, , pulmonary, eye, ENT system symptoms on review. Mental Status Exam: Oriented reasonably. Speech is coherent, rapid at times. Abstraction is fair. Computation is impaired. Language function is intact. Attention span is short. Mood and affect remains grandiose. Laboratory Data: Reviewed. Impression: Schizoaffective disorder bipolar type mixed with psychotic features. Bipolar 1 disorder mixed with psychotic features. Anxiety disorder unspecified. Impulse control disorder unspecified. Plan: Prozac 20 mg a day will be stopped since it could be worsening his manic symptoms. We will add trazodone 100 mg h.s. We may repeat x1 for insomnia. Continue Klonopin along with Ativan p.r.n., Risperdal 2 mg b.i.d., Seroquel 800 mg h.s., Depakote ER 1000 mg h.s. Repeat labs level to reach therapeutic level and this has been done and start the trazodone as noted. Adjust further as clinically indicated. Assessment: Vital Signs/I&O: Vital Signs Date Time Temp Pulse Resp B/P (MAP) Pulse Ox O2 Delivery O2 Flow Rate FiO2 07/31/20 15:23 98.8 88 17 153/78 (103) 94 07/31/20 06:38 Room Air I & O 07/30/20 07/30/20 07/31/20 15:00 23:00 07:00 Intake Total 800 ml 790 ml Balance 800 ml 790 ml Current Medications: Meds: Current Medications Medications (Trade) Dose Ordered Sig/Luciana Route PRN Reason Start Time Stop Time Status Last Admin Dose Admin Trazodone HCl (Desyrel) 100 mg PRN QHS PRN PO INSOMNIA 07/30/20 23:15 07/30/20 23:17 Trazodone HCl (Desyrel) 200 mg QHS PO 07/31/20 21:00 07/31/20 20:54 Trazodone HCl (Desyrel) 50 mg 1X ONCE PO 07/31/20 17:15 07/31/20 17:32 DC 07/31/20 17:15 Mirtazapine (Remeron) 7.5 mg QHS PO 07/31/20 21:00 07/31/20 20:54 I have reviewed the current psychotropics carefully including drug interactions. Risk benefit ratio favors no change other than as noted in my dictated progress note. Diagnosis: Problems: (1) Schizoaffective disorder, bipolar type (2) Impulse control disorder, unspecified (3) Anxiety disorder, unspecified (4) Bipolar I disorder, current or most recent episode manic, with psychotic features with mixed features ELIDIA VELA MD Jul 31, 2020 21:15
--- NOTE | 2020-07-31 22:30 | NUR ---
Pt is sitting in room listening to music. Pt compliant with medications/assessment. Pt denies any pain. Pt is med/attention seeking.
[2020-08-01] MEDS: ACETAMINOPHEN 325 MG TABLET PO PRN (04:17)
[2020-08-01] MEDS: LEVOTHYROXINE 100 MCG TABLET PO SCH (04:17)
[2020-08-01 06:19] LABS: BASO # 0.1 x10^3/uL (0.0-0.2); BASO % 2 % (0-3); EOS # 0.2 x10^3/uL (0.0-0.7); EOS % 3 % (0-3); HEMATOCRIT 38.6 % (39.0-53.0); HEMOGLOBIN 12.6 g/dL (13.0-17.5); LYMPH # 1.7 x10^3/uL (1.0-4.8); LYMPH % 23 % (24-48); MEAN CORPUSCULAR HEMOGLOBIN 32 pg (25-35); MEAN CORPUSCULAR HGB CONC 33 g/dL (31-37); MEAN CORPUSCULAR VOLUME 98 fL (79-100); MONO # 0.8 x10^3/uL (0.0-1.1); MONO % 10 % (0-9); NEUT # 4.7 x10^3uL (1.8-7.7); NEUT % 63 % (31-73); PLATELET COUNT 330 x10^3/uL (140-400); RED BLOOD COUNT 3.94 x10^6/uL (4.30-5.70); RED CELL DISTRIBUTION WIDTH 14.5 % (11.5-14.5); WHITE BLOOD COUNT 7.5 x10^3/uL (4.0-11.0)
[2020-08-01 06:30] VITALS: BP 145/89
[2020-08-01 06:30] LABS: ALBUMIN 3.2 g/dL (3.4-5.0); ALK PHOS 48 U/L (46-116); ALT (SGPT) 17 U/L (16-63); ANION GAP 7 (6-14); AST (SGOT) 12 U/L (15-37); BLOOD UREA NITROGEN 20 mg/dL (8-26); BUN/CREATININE RATIO 22 (6-20); CALCIUM 8.6 mg/dL (8.5-10.1); CARBON DIOXIDE 26 mmol/L (21-32); CHLORIDE 107 mmol/L (98-107); CREATININE 0.9 mg/dL (0.7-1.3); GFR 83.9; GLUCOSE 86 mg/dL (70-99); POTASSIUM 4.9 mmol/L (3.5-5.1); SODIUM 140 mmol/L (136-145); TOTAL BILIRUBIN 0.2 mg/dL (0.2-1.0); TOTAL PROTEIN 6.4 g/dL (6.4-8.2); VAL ACID 48 mcg/mL (50-100)
--- NOTE | 2020-08-01 08:15 | PDOC ---
Exam Note: David Note: This note is a late entry for 07/31/2020 covers elements not covered in my initial note. Subjective: The patient was reviewed on telehealth rounds in the evening of 07/31/2020 with Lee Ann MARSHALL. Discussed with nursing staff, reviewed the chart. He slept 1-1/2 hours previous night. He slept poorly previous night. The patient is extremely obsessive, repeatedly up to the nursing station window wanting yury or just nicotine patch. Review of Systems: No CV, , pulmonary, eye, ENT system symptoms on review. Mental Status Exam: Oriented reasonably. Speech is coherent, rapid, loud at times. Abstraction is fair. Computation is impaired. Language function is intact. Attention span is short. Mood and affect remains somewhat grandiose. Laboratory Data: Reviewed. Impression: Schizoaffective disorder bipolar type mixed with psychotic features. Bipolar 1 disorder mixed with psychotic features. Anxiety disorder unspecified. Impulse control disorder unspecified. Plan: Start Remeron 7.5 mg h.s. for his insomnia, trazodone scheduled 25 mg 9 a.m., 1 p.m., 5 p.m. to help with anxiety and restlessness. Continue rest of the psychotropics unchanged. Valproic acid level will be repeated in the morning. We will adjust to reach therapeutic level. Assessment: Vital Signs/I&O: Vital Signs Date Time Temp Pulse Resp B/P (MAP) Pulse Ox O2 Delivery O2 Flow Rate FiO2 08/01/20 06:30 98.3 74 20 145/89 (107) 96 Room Air I & O 07/31/20 07/31/20 08/01/20 15:00 23:00 07:00 Intake Total 980 ml 480 ml 240 ml Balance 980 ml 480 ml 240 ml Labs: Laboratory Tests Test 08/01/20 05:41 White Blood Count 7.5 x10^3/uL (4.0-11.0) Red Blood Count 3.94 x10^6/uL (4.30-5.70) L Hemoglobin 12.6 g/dL (13.0-17.5) L Hematocrit 38.6 % (39.0-53.0) L Mean Corpuscular Volume 98 fL (79-100) Mean Corpuscular Hemoglobin 32 pg (25-35) Mean Corpuscular Hemoglobin Concent 33 g/dL (31-37) Red Cell Distribution Width 14.5 % (11.5-14.5) Platelet Count 330 x10^3/uL (140-400) Neutrophils (%) (Auto) 63 % (31-73) Lymphocytes (%) (Auto) 23 % (24-48) L Monocytes (%) (Auto) 10 % (0-9) H Eosinophils (%) (Auto) 3 % (0-3) Basophils (%) (Auto) 2 % (0-3) Neutrophils # (Auto) 4.7 x10^3uL (1.8-7.7) Lymphocytes # (Auto) 1.7 x10^3/uL (1.0-4.8) Monocytes # (Auto) 0.8 x10^3/uL (0.0-1.1) Eosinophils # (Auto) 0.2 x10^3/uL (0.0-0.7) Basophils # (Auto) 0.1 x10^3/uL (0.0-0.2) Sodium Level 140 mmol/L (136-145) Potassium Level 4.9 mmol/L (3.5-5.1) Chloride Level 107 mmol/L (98-107) Carbon Dioxide Level 26 mmol/L (21-32) Anion Gap 7 (6-14) Blood Urea Nitrogen 20 mg/dL (8-26) Creatinine 0.9 mg/dL (0.7-1.3) Estimated GFR (Cockcroft-Gault) 83.9 BUN/Creatinine Ratio 22 (6-20) H Glucose Level 86 mg/dL (70-99) Calcium Level 8.6 mg/dL (8.5-10.1) Total Bilirubin 0.2 mg/dL (0.2-1.0) Aspartate Amino Transferase (AST) 12 U/L (15-37) L Alanine Aminotransferase (ALT) 17 U/L (16-63) Alkaline Phosphatase 48 U/L (46-116) Ammonia 14 mcmol/L (11-34) Total Protein 6.4 g/dL (6.4-8.2) Albumin 3.2 g/dL (3.4-5.0) L Albumin/Globulin Ratio 1.0 (1.0-1.7) Valproic Acid Level 48 mcg/mL (50-100) L Valproic Acid Last Dose Date 07/31/2020 Valproic Acid Last Dose Time 2100 Current Medications: Meds: Laboratory Tests Test 08/01/20 05:41 White Blood Count 7.5 x10^3/uL Red Blood Count 3.94 x10^6/uL Hemoglobin 12.6 g/dL Hematocrit 38.6 % Mean Corpuscular Volume 98 fL Mean Corpuscular Hemoglobin 32 pg Mean Corpuscular Hemoglobin Concent 33 g/dL Red Cell Distribution Width 14.5 % Platelet Count 330 x10^3/uL Neutrophils (%) (Auto) 63 % Lymphocytes (%) (Auto) 23 % Monocytes (%) (Auto) 10 % Eosinophils (%) (Auto) 3 % Basophils (%) (Auto) 2 % Neutrophils # (Auto) 4.7 x10^3uL Lymphocytes # (Auto) 1.7 x10^3/uL Monocytes # (Auto) 0.8 x10^3/uL Eosinophils # (Auto) 0.2 x10^3/uL Basophils # (Auto) 0.1 x10^3/uL Sodium Level 140 mmol/L Potassium Level 4.9 mmol/L Chloride Level 107 mmol/L Carbon Dioxide Level 26 mmol/L Anion Gap 7 Blood Urea Nitrogen 20 mg/dL Creatinine 0.9 mg/dL Estimated GFR (Cockcroft-Gault) 83.9 BUN/Creatinine Ratio 22 Glucose Level 86 mg/dL Calcium Level 8.6 mg/dL Total Bilirubin 0.2 mg/dL Aspartate Amino Transf (AST/SGOT) 12 U/L Alanine Aminotransferase (ALT/SGPT) 17 U/L Alkaline Phosphatase 48 U/L Ammonia 14 mcmol/L Total Protein 6.4 g/dL Albumin 3.2 g/dL Albumin/Globulin Ratio 1.0 Valproic Acid (Depakene) Level 48 mcg/mL Valproic Acid Last Dose Date 07/31/2020 Valproic Acid Last Dose Time 2100 Current Medications Medications (Trade) Dose Ordered Sig/Luciana Route PRN Reason Start Time Stop Time Status Last Admin Dose Admin Acetaminophen (Tylenol) 650 mg PRN Q6HRS PRN PO MILD PAIN / TEMP > 100.3'F 07/24/20 15:30 08/01/20 04:17 Multi-Ingredient Ointment (Analgesic [place]) 1 radha PRN QID PRN TP MUSCLE PAIN 07/24/20 15:30 Al Hydroxide/Mg Hydroxide (Mylanta Plus Xs) 15 ml PRN AFTMEALHC PRN PO DYSPEPSIA 07/24/20 15:30 Magnesium Hydroxide (Milk Of Magnesia) 2,400 mg PRN QHS PRN PO CONSTIPATION 07/24/20 15:30 Nicotine (Nicoderm Cq 7mg Patch) 1 patch DAILY TD 07/25/20 09:00 07/25/20 00:32 DC Nicotine Polacrilex (Nicorette Gum) 2 mg PRN Q1HR PRN BC SMOKING CESSATION 07/24/20 16:30 07/26/20 16:33 DC 07/26/20 15:15 Aspirin (Aspirin Chewable) 81 mg DAILYWBKFT PO 07/25/20 08:00 07/31/20 07:52 Levothyroxine Sodium (Synthroid) 100 mcg DAILY06 PO 07/25/20 06:00 08/01/20 04:17 Lisinopril (Prinivil) 20 mg DAILY PO 07/25/20 09:00 07/31/20 07:52 Lorazepam (Ativan) 1 mg PRN Q4HRS PRN PO ANXIETY / AGITATION 07/24/20 17:00 07/31/20 05:49 Lorazepam (Ativan) 1.5 mg QHS PO 07/24/20 21:00 07/29/20 18:41 DC 07/28/20 19:39 Fluoxetine HCl (PROzac) 20 mg DAILY PO 07/25/20 09:00 07/30/20 18:04 DC 07/30/20 09:56 Risperidone (RisperDAL) 1.5 mg BID PO 07/24/20 21:00 07/29/20 18:41 DC 07/29/20 08:04 Quetiapine Fumarate (SEROquel) 800 mg QHS PO 07/24/20 21:00 07/31/20 20:55 Calcium Carbonate/ Glycine (Tums) 1,000 mg PRN Q8HRS PRN PO INDIGESTION 07/24/20 17:00 07/28/20 21:48 Divalproex Sodium (Depakote Er) 500 mg QHS PO 07/25/20 21:00 07/29/20 18:41 DC 07/28/20 19:38 Polyethylene Glycol (miraLAX) 17 gm DAILY PO 07/26/20 09:00 07/31/20 07:52 Ibuprofen (Motrin) 600 mg PRN Q6HRS PRN PO INFLAMMATION 07/25/20 15:45 07/31/20 15:05 Nicotine (Nicoderm Cq 7mg Patch) 1 patch DAILY TD 07/26/20 18:15 07/31/20 07:53 Ketoconazole (Nizoral 2% Shampoo) 1 radha PRN DAILY PRN TP SEE COMMENTS 07/28/20 14:15 Amlodipine Besylate (Norvasc) 5 mg 1X ONCE PO 07/29/20 18:00 07/29/20 18:01 DC 07/29/20 17:54 Amlodipine Besylate (Norvasc) 5 mg DAILY PO 07/30/20 09:00 07/31/20 07:52 Divalproex Sodium (Depakote Er) 1,000 mg QHS PO 07/29/20 21:00 07/31/20 20:54 Risperidone (RisperDAL) 2 mg BID PO 07/29/20 21:00 07/31/20 20:55 Clonazepam (KlonoPIN) 1 mg HS PO 07/29/20 21:00 07/31/20 20:54 Clonazepam (KlonoPIN) 0.5 mg 0900,1300 PO 07/30/20 09:00 07/31/20 13:00 Trazodone HCl (Desyrel) 100 mg QHS PO 07/30/20 21:00 07/31/20 17:18 DC 07/30/20 19:58 Trazodone HCl (Desyrel) 100 mg PRN QHS PRN PO INSOMNIA 07/30/20 23:15 07/30/20 23:17 Trazodone HCl (Desyrel) 200 mg QHS PO 07/31/20 21:00 07/31/20 20:54 Trazodone HCl (Desyrel) 25 mg TID@0900,1300,1700 PO 08/01/20 09:00 Trazodone HCl (Desyrel) 50 mg 1X ONCE PO 07/31/20 17:15 07/31/20 17:32 DC 07/31/20 17:15 Mirtazapine (Remeron) 7.5 mg QHS PO 07/31/20 21:00 07/31/20 20:54 Current Medications Medications (Trade) Dose Ordered Sig/Luciana Route PRN Reason Start Time Stop Time Status Last Admin Dose Admin Trazodone HCl (Desyrel) 200 mg QHS PO 07/31/20 21:00 07/31/20 20:54 Trazodone HCl (Desyrel) 50 mg 1X ONCE PO 07/31/20 17:15 07/31/20 17:32 DC 07/31/20 17:15 Mirtazapine (Remeron) 7.5 mg QHS PO 07/31/20 21:00 07/31/20 20:54 I have reviewed the current psychotropics carefully including drug interactions. Risk benefit ratio favors no change other than as noted in my dictated progress note. Diagnosis: Problems: (1) Schizoaffective disorder, bipolar type (2) Impulse control disorder, unspecified (3) Anxiety disorder, unspecified (4) Bipolar I disorder, current or most recent episode manic, with psychotic features with mixed features ELIDIA VELA MD Aug 01, 2020 08:15
[2020-08-01] MEDS: clonazePAM 0.5 MG TABLET PO SCH ×2 (08:30→13:11)
[2020-08-01] MEDS: traZODone 50 MG TABLET. PO SCH ×3 (08:30→17:00)
[2020-08-01] MEDS: NICOTINE 7MG PATCH. TD SCH (08:31)
[2020-08-01] MEDS: POLYETHYLENE GLYCOL 3350 17 GM PACKET. PO SCH (08:31)
[2020-08-01] MEDS: ASPIRIN CHEWABLE 81 MG TABLET. PO SCH (08:31)
[2020-08-01] MEDS: amLODIPine BESYLATE 5 MG TABLET PO SCH (08:31)
[2020-08-01] MEDS: risperiDONE 2 MG TABLET. PO SCH ×2 (08:32→19:22)
[2020-08-01] MEDS: LISINOPRIL 20 MG TABLET PO SCH (08:32)
--- NOTE | 2020-08-01 11:37 | NUR ---
Patient eating breakfast in chair in room at time of assessment. Patient is cooperative and calm. Seems to be less hyper today than previously. He has not been back and forth all morning from his room to the nurses station and sits in group for the entirety. He starts to have some manic behaviors around lunch but it is more attention seeking than anything. Patient takes medications whole with no problems. Patient has no complaints and there are no no further concerns at this time.
--- NOTE | 2020-08-01 11:59 | TX PLAN ---
Interdisciplinary Tx Plan Admission Information Jul 24, 2020 at 14:30 Legal Status (on Admission): Voluntary DPOA/Guardian Name: Pt is a self sign Contact Other Contact Name: Migdalia PEDRO) [phone] Other Contact Verified Code Status: Full Code Allergies: Coded Allergies: codeine (Verified Allergy, Intermediate, 07/30/20) lithium (Verified Allergy, Intermediate, 07/30/20) Diagnoses Primary Diagnosis: (1) Schizoaffective disorder, bipolar type (2) Impulse control disorder, unspecified (3) Anxiety disorder, unspecified (4) Bipolar I disorder, current or most recent episode manic, with psychotic features with mixed features Reasons for Admission: Relation/conflict, Agitated, Sig. Change Sleep, Anxiety/Panic, Poor impulse control, Other Problem in Patient's Words: Per pt, "I'm here for being manic and doing the [place] Dance." Pt motioned to show that he had pulled his pants down and stated that it was just a dance. Pt then went on to express that he need help learning how to be more appropriate. Additional Admission Comments: Per intake record, pt is being admited for being manic, verbal altercation with roommate, making sexually inappropriate comments to peers, kicked kitchen staff in the butt, insomnia, agitated, hyperverbal, restless, and pulled pants down in dinning room exposing buttocks to peers. Problems Active Problems: Impulsivity, manic, hyper verbal, restless Inactive Problems: None Pt Strengths/Limitations Ability for [place]: Fair Cognitive Functioning/Ability: Fair Communication Skills/Ability: Good Financial Resources: Fair Insight/Judgement: Fair Intellectual Ability: Good Physical Health: Fair Social Skills: Poor Stability in Family: Poor Stability in School/Work: Fair Verbal Skills: Good Discharge Criteria Discharge Criteria: Able meet basic life need, Adequate arrangements @DC, Improved behavior, Improved mood/thought Preliminary Discharge Plan Preliminary DC Plan: Current Living Arrange. Special Precautions Special Precautions: Agitation/Assault Fall Risk: Low Initial D/C Plan Pt plan is to return to [facility] on once stable. Identified Discharge Needs: None at this time. Currently Utilized Resources Currently Utilized Resources/P: PCP is Dr. Henderson at [facility] on [address] is Migdalia at [facility] on [address] Referrals Community Resources: None at this time. Identified Problems/Hx/Goals Objectives/Short-Term Goals Short Term Goals: Control abnormal behavior, Dec. Outbursts, Improved Social Skills, Medication Stabilization, Monitor Med Effects, Promote Coping Skill Short Term Goals in Patient's: "To get help in controlling my sulma and to be less intrusive and impulsive." Interventions/Frequency Staff Interventions/Frequency&: Psychiatry to assess pt three times per week for medication management. Nursing to assess behaviors, monitor medications, and complete 15 minute checks daily. Social work to see pt at least twice weekly to aid in return to placement. Activities to encourage pt to participate in group activities daily. 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 Migdalia could not verify. Education: Pt graduated high school from [employer] and attending [place] [place] [employer] for one year, then going to [employer] for three years. This information could not be verified. Community Follow-up PCP Treatment Plan Explained Patient/Education Counselor had this treatment plan explained to him/her as indicated by the signature below and has been given the opportunity to ask questions and make suggestions: Date: Patient/Education Counselor Signature: Status Update Update Pt eats 100% of his meals and averages 4 hours of sleep per night. Pt reports not being a good sleeper and actually only slept a couple of hours the night before last. Pt is much calmer than upon admission when he was very manic. He now seems to be not as hyper. He does, however, seem to be attention seeking at times, but for the most part has been redirectable. Pt was given trazadone to help with sleep. Blood test drawn today and awaiting results. Pt plan for d/c is back to [facility] on [address] in [place] once stable. BRIANA OCONNELL Aug 01, 2020 11:59
--- NOTE | 2020-08-01 13:49 | NUR ---
WEEKLY ACTIVITY THERAPY NOTE Date of Admission: 07/24 Date of AT Assessment: 07/27 Precipitating behaviors that initiated intake and admission:manic, verbal altercation with roommate, making sexually inappropriate comments to peers, kicked kitchen staff in butt, insomnia, agitated, hyperverbal, pacing, restless, pulled pants down in dining room exposing butt to peers Goal aimed: increase stress management/relaxation and socialization skills Initial Goal: Pt will participate in all Activity Therapy group sessions per week. Weekly progress towards goal: did not achieve, missed groups on Wednesday Group participation level: 3 full, 9 mod Weekly highlights: Behaviors observed: in and out of group multiple times, listening to yury music in his room during down time, social with peers, sarcastic and inappropriate at times but able to be redirected pretty easily, distracting and disruptive, made a brief comment about drinking lots of fluids to flush medication but clarified he wants to make sure his kidneys stay healthy after the pills have done their job, over shares information, appears to seek attention at times, appropriateness has increased as the week has progressed Plan: no change to goal Beneficial adaptations:
--- NOTE | 2020-08-01 16:21 | NUR ---
SW spoke with pt regarding how he feels that he is doing. Pt reports feeling like he is sleeping better and that medication is working. JOSÉ LUIS, also, spoke with Migdalia from [facility] on to give update following this mornings treatment team. Migdalia appreciative of update. Migdalia reports that once pt discharges back to them, he will go into quarantine. She states that their facility will allow a pending Covid swab since he will be in quarantine anyway.
[2020-08-01 16:22] VITALS: BP 151/90
[2020-08-01] MEDS: MIRTAZAPINE 7.5 MG TABLET. PO SCH (19:22)
[2020-08-01] MEDS: clonazePAM 1 MG TABLET PO SCH (19:22)
[2020-08-01] MEDS: traZODone 100 MG TABLET. PO SCH (19:23)
[2020-08-01] MEDS: QUEtiapine 100 MG TABLET. PO SCH (19:23)
[2020-08-01] MEDS: DIVALPROEX ER 500 MG TAB.ER.24H PO SCH (19:23)
--- NOTE | 2020-08-01 19:30 | NUR ---
Nursing Note: Pt is getting short with another pt. Encouraged to go to his room to listen to music, and that staff would try their best to keep other pt away from his room. Pt calm and interactive with staff. Compliant with medications and assessment.
--- NOTE | 2020-08-01 21:08 | PDOC ---
Exam Note: David Note: Please also refer to the separate dictated note~for this date of service dictated separately.~Patient seen individually. Discussed the patient with Nursing staff reviewed the chart.~Reviewed interim history and current functioning. Reviewed vital signs,~Labs/ Radiology~and current medications noted below. Continue current treatment with the changes noted in the dictated addendum note Assessment: Vital Signs/I&O: Vital Signs Date Time Temp Pulse Resp B/P (MAP) Pulse Ox O2 Delivery O2 Flow Rate FiO2 08/01/20 16:22 97.9 86 16 151/90 (110) 97 08/01/20 06:30 Room Air I & O 07/31/20 07/31/20 08/01/20 14:59 22:59 06:59 Intake Total 980 ml 480 ml 240 ml Balance 980 ml 480 ml 240 ml Labs: Laboratory Tests Test 08/01/20 05:41 White Blood Count 7.5 x10^3/uL (4.0-11.0) Red Blood Count 3.94 x10^6/uL (4.30-5.70) L Hemoglobin 12.6 g/dL (13.0-17.5) L Hematocrit 38.6 % (39.0-53.0) L Mean Corpuscular Volume 98 fL (79-100) Mean Corpuscular Hemoglobin 32 pg (25-35) Mean Corpuscular Hemoglobin Concent 33 g/dL (31-37) Red Cell Distribution Width 14.5 % (11.5-14.5) Platelet Count 330 x10^3/uL (140-400) Neutrophils (%) (Auto) 63 % (31-73) Lymphocytes (%) (Auto) 23 % (24-48) L Monocytes (%) (Auto) 10 % (0-9) H Eosinophils (%) (Auto) 3 % (0-3) Basophils (%) (Auto) 2 % (0-3) Neutrophils # (Auto) 4.7 x10^3uL (1.8-7.7) Lymphocytes # (Auto) 1.7 x10^3/uL (1.0-4.8) Monocytes # (Auto) 0.8 x10^3/uL (0.0-1.1) Eosinophils # (Auto) 0.2 x10^3/uL (0.0-0.7) Basophils # (Auto) 0.1 x10^3/uL (0.0-0.2) Sodium Level 140 mmol/L (136-145) Potassium Level 4.9 mmol/L (3.5-5.1) Chloride Level 107 mmol/L (98-107) Carbon Dioxide Level 26 mmol/L (21-32) Anion Gap 7 (6-14) Blood Urea Nitrogen 20 mg/dL (8-26) Creatinine 0.9 mg/dL (0.7-1.3) Estimated GFR (Cockcroft-Gault) 83.9 BUN/Creatinine Ratio 22 (6-20) H Glucose Level 86 mg/dL (70-99) Calcium Level 8.6 mg/dL (8.5-10.1) Total Bilirubin 0.2 mg/dL (0.2-1.0) Aspartate Amino Transferase (AST) 12 U/L (15-37) L Alanine Aminotransferase (ALT) 17 U/L (16-63) Alkaline Phosphatase 48 U/L (46-116) Ammonia 14 mcmol/L (11-34) Total Protein 6.4 g/dL (6.4-8.2) Albumin 3.2 g/dL (3.4-5.0) L Albumin/Globulin Ratio 1.0 (1.0-1.7) Valproic Acid Level 48 mcg/mL (50-100) L Valproic Acid Last Dose Date 07/31/2020 Valproic Acid Last Dose Time 2100 Current Medications: Meds: Laboratory Tests Test 08/01/20 05:41 White Blood Count 7.5 x10^3/uL Red Blood Count 3.94 x10^6/uL Hemoglobin 12.6 g/dL Hematocrit 38.6 % Mean Corpuscular Volume 98 fL Mean Corpuscular Hemoglobin 32 pg Mean Corpuscular Hemoglobin Concent 33 g/dL Red Cell Distribution Width 14.5 % Platelet Count 330 x10^3/uL Neutrophils (%) (Auto) 63 % Lymphocytes (%) (Auto) 23 % Monocytes (%) (Auto) 10 % Eosinophils (%) (Auto) 3 % Basophils (%) (Auto) 2 % Neutrophils # (Auto) 4.7 x10^3uL Lymphocytes # (Auto) 1.7 x10^3/uL Monocytes # (Auto) 0.8 x10^3/uL Eosinophils # (Auto) 0.2 x10^3/uL Basophils # (Auto) 0.1 x10^3/uL Sodium Level 140 mmol/L Potassium Level 4.9 mmol/L Chloride Level 107 mmol/L Carbon Dioxide Level 26 mmol/L Anion Gap 7 Blood Urea Nitrogen 20 mg/dL Creatinine 0.9 mg/dL Estimated GFR (Cockcroft-Gault) 83.9 BUN/Creatinine Ratio 22 Glucose Level 86 mg/dL Calcium Level 8.6 mg/dL Total Bilirubin 0.2 mg/dL Aspartate Amino Transf (AST/SGOT) 12 U/L Alanine Aminotransferase (ALT/SGPT) 17 U/L Alkaline Phosphatase 48 U/L Ammonia 14 mcmol/L Total Protein 6.4 g/dL Albumin 3.2 g/dL Albumin/Globulin Ratio 1.0 Valproic Acid (Depakene) Level 48 mcg/mL Valproic Acid Last Dose Date 07/31/2020 Valproic Acid Last Dose Time 2100 Current Medications Medications (Trade) Dose Ordered Sig/Luciana Route PRN Reason Start Time Stop Time Status Last Admin Dose Admin Acetaminophen (Tylenol) 650 mg PRN Q6HRS PRN PO MILD PAIN / TEMP > 100.3'F 07/24/20 15:30 08/01/20 04:17 Multi-Ingredient Ointment (Analgesic [place]) 1 radha PRN QID PRN TP MUSCLE PAIN 07/24/20 15:30 Al Hydroxide/Mg Hydroxide (Mylanta Plus Xs) 15 ml PRN AFTMEALHC PRN PO DYSPEPSIA 07/24/20 15:30 Magnesium Hydroxide (Milk Of Magnesia) 2,400 mg PRN QHS PRN PO CONSTIPATION 07/24/20 15:30 Nicotine (Nicoderm Cq 7mg Patch) 1 patch DAILY TD 07/25/20 09:00 07/25/20 00:32 DC Nicotine Polacrilex (Nicorette Gum) 2 mg PRN Q1HR PRN BC SMOKING CESSATION 07/24/20 16:30 07/26/20 16:33 DC 07/26/20 15:15 Aspirin (Aspirin Chewable) 81 mg DAILYWBKFT PO 07/25/20 08:00 08/01/20 08:31 Levothyroxine Sodium (Synthroid) 100 mcg DAILY06 PO 07/25/20 06:00 08/01/20 04:17 Lisinopril (Prinivil) 20 mg DAILY PO 07/25/20 09:00 08/01/20 08:32 Lorazepam (Ativan) 1 mg PRN Q4HRS PRN PO ANXIETY / AGITATION 07/24/20 17:00 07/31/20 05:49 Lorazepam (Ativan) 1.5 mg QHS PO 07/24/20 21:00 07/29/20 18:41 DC 07/28/20 19:39 Fluoxetine HCl (PROzac) 20 mg DAILY PO 07/25/20 09:00 07/30/20 18:04 DC 07/30/20 09:56 Risperidone (RisperDAL) 1.5 mg BID PO 07/24/20 21:00 07/29/20 18:41 DC 07/29/20 08:04 Quetiapine Fumarate (SEROquel) 800 mg QHS PO 07/24/20 21:00 08/01/20 19:23 Calcium Carbonate/ Glycine (Tums) 1,000 mg PRN Q8HRS PRN PO INDIGESTION 07/24/20 17:00 07/28/20 21:48 Divalproex Sodium (Depakote Er) 500 mg QHS PO 07/25/20 21:00 07/29/20 18:41 DC 07/28/20 19:38 Polyethylene Glycol (miraLAX) 17 gm DAILY PO 07/26/20 09:00 08/01/20 08:31 Ibuprofen (Motrin) 600 mg PRN Q6HRS PRN PO INFLAMMATION 07/25/20 15:45 07/31/20 15:05 Nicotine (Nicoderm Cq 7mg Patch) 1 patch DAILY TD 07/26/20 18:15 08/01/20 08:31 Ketoconazole (Nizoral 2% Shampoo) 1 radha PRN DAILY PRN TP SEE COMMENTS 07/28/20 14:15 Amlodipine Besylate (Norvasc) 5 mg 1X ONCE PO 07/29/20 18:00 07/29/20 18:01 DC 07/29/20 17:54 Amlodipine Besylate (Norvasc) 5 mg DAILY PO 07/30/20 09:00 08/01/20 08:31 Divalproex Sodium (Depakote Er) 1,000 mg QHS PO 07/29/20 21:00 08/01/20 18:08 DC 07/31/20 20:54 Risperidone (RisperDAL) 2 mg BID PO 07/29/20 21:00 08/01/20 19:22 Clonazepam (KlonoPIN) 1 mg HS PO 07/29/20 21:00 08/01/20 19:22 Clonazepam (KlonoPIN) 0.5 mg 0900,1300 PO 07/30/20 09:00 08/01/20 13:11 Trazodone HCl (Desyrel) 100 mg QHS PO 07/30/20 21:00 07/31/20 17:18 DC 07/30/20 19:58 Trazodone HCl (Desyrel) 100 mg PRN QHS PRN PO INSOMNIA 07/30/20 23:15 07/30/20 23:17 Trazodone HCl (Desyrel) 200 mg QHS PO 07/31/20 21:00 08/01/20 19:23 Trazodone HCl (Desyrel) 25 mg TID@0900,1300,1700 PO 08/01/20 09:00 08/01/20 17:00 Trazodone HCl (Desyrel) 50 mg 1X ONCE PO 07/31/20 17:15 07/31/20 17:32 DC 07/31/20 17:15 Mirtazapine (Remeron) 7.5 mg QHS PO 07/31/20 21:00 08/01/20 19:22 Divalproex Sodium (Depakote Er) 1,500 mg QHS PO 08/01/20 21:00 08/01/20 19:23 Current Medications Medications (Trade) Dose Ordered Sig/Luciana Route PRN Reason Start Time Stop Time Status Last Admin Dose Admin Trazodone HCl (Desyrel) 25 mg TID@0900,1300,1700 PO 08/01/20 09:00 08/01/20 17:00 Divalproex Sodium (Depakote Er) 1,500 mg QHS PO 08/01/20 21:00 08/01/20 19:23 I have reviewed the current psychotropics carefully including drug interactions. Risk benefit ratio favors no change other than as noted in my dictated progress note. Diagnosis: Problems: (1) Schizoaffective disorder, bipolar type (2) Impulse control disorder, unspecified (3) Anxiety disorder, unspecified (4) Bipolar I disorder, current or most recent episode manic, with psychotic features with mixed features ELIDIA VELA MD Aug 01, 2020 21:08
[2020-08-02] MEDS: LEVOTHYROXINE 100 MCG TABLET PO SCH (04:37)
[2020-08-02] MEDS: IBUPROFEN 600 MG TABLET. PO PRN (04:37)
[2020-08-02 06:19] VITALS: BP 151/71
[2020-08-02] MEDS: traZODone 50 MG TABLET. PO SCH ×3 (07:52→17:00)
[2020-08-02] MEDS: ASPIRIN CHEWABLE 81 MG TABLET. PO SCH (07:52)
[2020-08-02] MEDS: POLYETHYLENE GLYCOL 3350 17 GM PACKET. PO SCH (07:52)
[2020-08-02] MEDS: amLODIPine BESYLATE 5 MG TABLET PO SCH (07:52)
[2020-08-02] MEDS: clonazePAM 0.5 MG TABLET PO SCH ×2 (07:52→12:28)
[2020-08-02] MEDS: risperiDONE 2 MG TABLET. PO SCH ×2 (07:53→21:08)
[2020-08-02] MEDS: NICOTINE 7MG PATCH. TD SCH (07:53)
[2020-08-02] MEDS: LISINOPRIL 20 MG TABLET PO SCH (07:53)
--- NOTE | 2020-08-02 08:32 | PDOC ---
Exam Note: David Note: This note is a late entry for 08/01/2020 covers elements not covered in my initial note. Subjective: The patient was reviewed on telehealth rounds in the morning of 08/01/2020 for a treatment team meeting with Rama Robbins, Mckenzie Gil and Clarisa (social media senior associate), Shannon Arreola, activity therapy and Lee Ann MARSHALL. Discussed with nursing staff, reviewed the chart. He slept 4 hours previous night. Overall he is much calmer, less grandiose, less disruptive. He had previously made comments that he wanted to drink water to flush out his medications but on further review it appears he was referring to his past lithium toxicity rather than anything he wants to do now. I addressed this with him. He has been less hyper-calmer. Review of Systems: No CV, , pulmonary, eye, ENT system symptoms on review. Mental Status Exam: Oriented reasonably. Speech is coherent, less pressured. Abstraction is fair. Computation is impaired. Language function is intact. Mood and affect remains less grandiose. Laboratory Data: Reviewed. Impression: Schizoaffective disorder bipolar type mixed with psychotic features. Bipolar 1 disorder mixed with psychotic features. Anxiety disorder unspecified. Impulse control disorder unspecified. Plan: The patients valproic acid level is 48 on Depakote ER 1000 mg h.s. We will increase to 1500 mg h.s. Check CBC, CMP, valproic acid level in 3 days. Continue rest of the psychotropics unchanged including the increase of Risperdal, scheduled trazodone continuing the Klonopin. Maintain Seroquel 800 mg h.s. and he is responding much better to all of this. Assessment: Vital Signs/I&O: Vital Signs Date Time Temp Pulse Resp B/P (MAP) Pulse Ox O2 Delivery O2 Flow Rate FiO2 08/02/20 07:53 99 151/71 08/02/20 06:19 98.4 18 100 08/01/20 06:30 Room Air I & O 08/01/20 08/01/20 08/02/20 15:00 23:00 07:00 Intake Total 840 ml 600 ml 240 ml Balance 840 ml 600 ml 240 ml Current Medications: Meds: Current Medications Medications (Trade) Dose Ordered Sig/Luciana Route PRN Reason Start Time Stop Time Status Last Admin Dose Admin Acetaminophen (Tylenol) 650 mg PRN Q6HRS PRN PO MILD PAIN / TEMP > 100.3'F 07/24/20 15:30 08/01/20 04:17 Multi-Ingredient Ointment (Analgesic [place]) 1 radha PRN QID PRN TP MUSCLE PAIN 07/24/20 15:30 Al Hydroxide/Mg Hydroxide (Mylanta Plus Xs) 15 ml PRN AFTMEALHC PRN PO DYSPEPSIA 07/24/20 15:30 Magnesium Hydroxide (Milk Of Magnesia) 2,400 mg PRN QHS PRN PO CONSTIPATION 07/24/20 15:30 Nicotine (Nicoderm Cq 7mg Patch) 1 patch DAILY TD 07/25/20 09:00 07/25/20 00:32 DC Nicotine Polacrilex (Nicorette Gum) 2 mg PRN Q1HR PRN BC SMOKING CESSATION 07/24/20 16:30 07/26/20 16:33 DC 07/26/20 15:15 Aspirin (Aspirin Chewable) 81 mg DAILYWBKFT PO 07/25/20 08:00 08/02/20 07:52 Levothyroxine Sodium (Synthroid) 100 mcg DAILY06 PO 07/25/20 06:00 08/02/20 04:37 Lisinopril (Prinivil) 20 mg DAILY PO 07/25/20 09:00 08/02/20 07:53 Lorazepam (Ativan) 1 mg PRN Q4HRS PRN PO ANXIETY / AGITATION 07/24/20 17:00 07/31/20 05:49 Lorazepam (Ativan) 1.5 mg QHS PO 07/24/20 21:00 07/29/20 18:41 DC 07/28/20 19:39 Fluoxetine HCl (PROzac) 20 mg DAILY PO 07/25/20 09:00 07/30/20 18:04 DC 07/30/20 09:56 Risperidone (RisperDAL) 1.5 mg BID PO 07/24/20 21:00 07/29/20 18:41 DC 07/29/20 08:04 Quetiapine Fumarate (SEROquel) 800 mg QHS PO 07/24/20 21:00 08/01/20 19:23 Calcium Carbonate/ Glycine (Tums) 1,000 mg PRN Q8HRS PRN PO INDIGESTION 07/24/20 17:00 07/28/20 21:48 Divalproex Sodium (Depakote Er) 500 mg QHS PO 07/25/20 21:00 07/29/20 18:41 DC 07/28/20 19:38 Polyethylene Glycol (miraLAX) 17 gm DAILY PO 07/26/20 09:00 08/02/20 07:52 Ibuprofen (Motrin) 600 mg PRN Q6HRS PRN PO INFLAMMATION 07/25/20 15:45 08/02/20 04:37 Nicotine (Nicoderm Cq 7mg Patch) 1 patch DAILY TD 07/26/20 18:15 08/02/20 07:53 Ketoconazole (Nizoral 2% Shampoo) 1 radha PRN DAILY PRN TP SEE COMMENTS 07/28/20 14:15 Amlodipine Besylate (Norvasc) 5 mg 1X ONCE PO 07/29/20 18:00 07/29/20 18:01 DC 07/29/20 17:54 Amlodipine Besylate (Norvasc) 5 mg DAILY PO 07/30/20 09:00 08/02/20 07:52 Divalproex Sodium (Depakote Er) 1,000 mg QHS PO 07/29/20 21:00 08/01/20 18:08 DC 07/31/20 20:54 Risperidone (RisperDAL) 2 mg BID PO 07/29/20 21:00 08/02/20 07:53 Clonazepam (KlonoPIN) 1 mg HS PO 07/29/20 21:00 08/01/20 19:22 Clonazepam (KlonoPIN) 0.5 mg 0900,1300 PO 07/30/20 09:00 08/02/20 07:52 Trazodone HCl (Desyrel) 100 mg QHS PO 07/30/20 21:00 07/31/20 17:18 DC 07/30/20 19:58 Trazodone HCl (Desyrel) 100 mg PRN QHS PRN PO INSOMNIA 07/30/20 23:15 07/30/20 23:17 Trazodone HCl (Desyrel) 200 mg QHS PO 07/31/20 21:00 08/01/20 19:23 Trazodone HCl (Desyrel) 25 mg TID@0900,1300,1700 PO 08/01/20 09:00 08/02/20 07:52 Trazodone HCl (Desyrel) 50 mg 1X ONCE PO 07/31/20 17:15 07/31/20 17:32 DC 07/31/20 17:15 Mirtazapine (Remeron) 7.5 mg QHS PO 07/31/20 21:00 08/01/20 19:22 Divalproex Sodium (Depakote Er) 1,500 mg QHS PO 08/01/20 21:00 08/01/20 19:23 Current Medications Medications (Trade) Dose Ordered Sig/Luciana Route PRN Reason Start Time Stop Time Status Last Admin Dose Admin Trazodone HCl (Desyrel) 25 mg TID@0900,1300,1700 PO 08/01/20 09:00 08/02/20 07:52 Divalproex Sodium (Depakote Er) 1,500 mg QHS PO 08/01/20 21:00 08/01/20 19:23 I have reviewed the current psychotropics carefully including drug interactions. Risk benefit ratio favors no change other than as noted in my dictated progress note. Diagnosis: Problems: (1) Schizoaffective disorder, bipolar type (2) Impulse control disorder, unspecified (3) Anxiety disorder, unspecified (4) Bipolar I disorder, current or most recent episode manic, with psychotic features with mixed features ELIDIA VELA MD Aug 02, 2020 08:32
[2020-08-02 16:56] VITALS: BP 133/75
[2020-08-02] MEDS: clonazePAM 1 MG TABLET PO SCH (21:07)
[2020-08-02] MEDS: traZODone 100 MG TABLET. PO SCH (21:08)
[2020-08-02] MEDS: QUEtiapine 100 MG TABLET. PO SCH (21:08)
[2020-08-02] MEDS: MIRTAZAPINE 7.5 MG TABLET. PO SCH (21:08)
[2020-08-02] MEDS: DIVALPROEX ER 500 MG TAB.ER.24H PO SCH (21:08)
--- NOTE | 2020-08-02 21:19 | PDOC ---
Exam Note: David Note: Please also refer to the separate dictated note~for this date of service dictated separately.~Patient seen individually. Discussed the patient with Nursing staff reviewed the chart.~Reviewed interim history and current functioning. Reviewed vital signs,~Labs/ Radiology~and current medications noted below. Continue current treatment with the changes noted in the dictated addendum note Assessment: Vital Signs/I&O: Vital Signs Date Time Temp Pulse Resp B/P (MAP) Pulse Ox O2 Delivery O2 Flow Rate FiO2 08/02/20 16:56 99.0 83 20 133/75 (94) 95 Room Air I & O 08/01/20 08/01/20 08/02/20 14:59 22:59 06:59 Intake Total 840 ml 600 ml 240 ml Balance 840 ml 600 ml 240 ml Current Medications: Meds: Current Medications Medications (Trade) Dose Ordered Sig/Luciana Route PRN Reason Start Time Stop Time Status Last Admin Dose Admin Acetaminophen (Tylenol) 650 mg PRN Q6HRS PRN PO MILD PAIN / TEMP > 100.3'F 07/24/20 15:30 08/01/20 04:17 Multi-Ingredient Ointment (Analgesic [place]) 1 radha PRN QID PRN TP MUSCLE PAIN 07/24/20 15:30 Al Hydroxide/Mg Hydroxide (Mylanta Plus Xs) 15 ml PRN AFTMEALHC PRN PO DYSPEPSIA 07/24/20 15:30 Magnesium Hydroxide (Milk Of Magnesia) 2,400 mg PRN QHS PRN PO CONSTIPATION 07/24/20 15:30 Nicotine (Nicoderm Cq 7mg Patch) 1 patch DAILY TD 07/25/20 09:00 07/25/20 00:32 DC Nicotine Polacrilex (Nicorette Gum) 2 mg PRN Q1HR PRN BC SMOKING CESSATION 07/24/20 16:30 07/26/20 16:33 DC 07/26/20 15:15 Aspirin (Aspirin Chewable) 81 mg DAILYWBKFT PO 07/25/20 08:00 08/02/20 07:52 Levothyroxine Sodium (Synthroid) 100 mcg DAILY06 PO 07/25/20 06:00 08/02/20 04:37 Lisinopril (Prinivil) 20 mg DAILY PO 07/25/20 09:00 08/02/20 07:53 Lorazepam (Ativan) 1 mg PRN Q4HRS PRN PO ANXIETY / AGITATION 07/24/20 17:00 07/31/20 05:49 Lorazepam (Ativan) 1.5 mg QHS PO 07/24/20 21:00 07/29/20 18:41 DC 07/28/20 19:39 Fluoxetine HCl (PROzac) 20 mg DAILY PO 07/25/20 09:00 07/30/20 18:04 DC 07/30/20 09:56 Risperidone (RisperDAL) 1.5 mg BID PO 07/24/20 21:00 07/29/20 18:41 DC 07/29/20 08:04 Quetiapine Fumarate (SEROquel) 800 mg QHS PO 07/24/20 21:00 08/02/20 21:08 Calcium Carbonate/ Glycine (Tums) 1,000 mg PRN Q8HRS PRN PO INDIGESTION 07/24/20 17:00 07/28/20 21:48 Divalproex Sodium (Depakote Er) 500 mg QHS PO 07/25/20 21:00 07/29/20 18:41 DC 07/28/20 19:38 Polyethylene Glycol (miraLAX) 17 gm DAILY PO 07/26/20 09:00 08/02/20 07:52 Ibuprofen (Motrin) 600 mg PRN Q6HRS PRN PO INFLAMMATION 07/25/20 15:45 08/02/20 04:37 Nicotine (Nicoderm Cq 7mg Patch) 1 patch DAILY TD 07/26/20 18:15 08/02/20 07:53 Ketoconazole (Nizoral 2% Shampoo) 1 radha PRN DAILY PRN TP SEE COMMENTS 07/28/20 14:15 Amlodipine Besylate (Norvasc) 5 mg 1X ONCE PO 07/29/20 18:00 07/29/20 18:01 DC 07/29/20 17:54 Amlodipine Besylate (Norvasc) 5 mg DAILY PO 07/30/20 09:00 08/02/20 07:52 Divalproex Sodium (Depakote Er) 1,000 mg QHS PO 07/29/20 21:00 08/01/20 18:08 DC 07/31/20 20:54 Risperidone (RisperDAL) 2 mg BID PO 07/29/20 21:00 08/02/20 21:08 Clonazepam (KlonoPIN) 1 mg HS PO 07/29/20 21:00 08/02/20 21:07 Clonazepam (KlonoPIN) 0.5 mg 0900,1300 PO 07/30/20 09:00 08/02/20 12:28 Trazodone HCl (Desyrel) 100 mg QHS PO 07/30/20 21:00 07/31/20 17:18 DC 07/30/20 19:58 Trazodone HCl (Desyrel) 100 mg PRN QHS PRN PO INSOMNIA 07/30/20 23:15 07/30/20 23:17 Trazodone HCl (Desyrel) 200 mg QHS PO 07/31/20 21:00 08/02/20 21:08 Trazodone HCl (Desyrel) 25 mg TID@0900,1300,1700 PO 08/01/20 09:00 08/02/20 17:00 Trazodone HCl (Desyrel) 50 mg 1X ONCE PO 07/31/20 17:15 07/31/20 17:32 DC 07/31/20 17:15 Mirtazapine (Remeron) 7.5 mg QHS PO 07/31/20 21:00 08/02/20 21:08 Divalproex Sodium (Depakote Er) 1,500 mg QHS PO 08/01/20 21:00 08/02/20 21:08 I have reviewed the current psychotropics carefully including drug interactions. Risk benefit ratio favors no change other than as noted in my dictated progress note. Diagnosis: Problems: (1) Schizoaffective disorder, bipolar type (2) Impulse control disorder, unspecified (3) Anxiety disorder, unspecified (4) Bipolar I disorder, current or most recent episode manic, with psychotic fea tures with mixed features ELIDIA VELA MD Aug 02, 2020 21:19
--- NOTE | 2020-08-02 23:28 | NUR ---
Pt is sitting in room listening to music upon assessment and med pass. Pt takes meds whole with thin liquids. Pt was complaint and cooperative this evening. Pt is currently laying in bed resting. Will continue to monitor.
[2020-08-03] MEDS: LEVOTHYROXINE 100 MCG TABLET PO SCH (05:09)
[2020-08-03 06:20] VITALS: BP 141/86
--- NOTE | 2020-08-03 08:13 | PDOC ---
Exam Note: David Note: This note is a late entry for 08/02/2020 covers elements not covered in my initial note. Subjective: The patient was reviewed on telehealth rounds in the evening of 08/02/2020 with Lee Ann MARSHALL. Discussed with nursing staff, reviewed the chart. He slept 5-1/4 hours previous night. He has been increasingly grandiose today, more agitated. Received Ativan p.r.n. He was holding hands with female patient, did redirect when nursing staff intervened. Review of Systems: No CV, , pulmonary, eye, ENT system symptoms on review. Mental Status Exam: Oriented reasonably. Speech is coherent, less pressured. He was tired and sleepy during telehealth rounds. Per observation insight showing improvement. Abstraction is fair. Computation is impaired. Language function is intact. Mood and affect less grandiose. Laboratory Data: Reviewed. Impression: Bipolar 1 disorder manic with psychotic features. Anxiety disorder unspecified. Impulse control disorder unspecified. Plan: Continue psychotropics from initial note. We have adjusted the Depakote to repeat labs level on 08/04. Rest unchanged for now. Assessment: Vital Signs/I&O: Vital Signs Date Time Temp Pulse Resp B/P (MAP) Pulse Ox O2 Delivery O2 Flow Rate FiO2 08/03/20 06:20 97.7 76 24 141/86 (104) 97 08/02/20 16:56 Room Air I & O 08/02/20 08/02/20 08/03/20 15:00 23:00 07:00 Intake Total 1080 ml 240 ml Balance 1080 ml 240 ml Current Medications: Meds: Current Medications Medications (Trade) Dose Ordered Sig/Luciana Route PRN Reason Start Time Stop Time Status Last Admin Dose Admin Acetaminophen (Tylenol) 650 mg PRN Q6HRS PRN PO MILD PAIN / TEMP > 100.3'F 07/24/20 15:30 08/01/20 04:17 Multi-Ingredient Ointment (Analgesic [place]) 1 radha PRN QID PRN TP MUSCLE PAIN 07/24/20 15:30 Al Hydroxide/Mg Hydroxide (Mylanta Plus Xs) 15 ml PRN AFTMEALHC PRN PO DYSPEPSIA 07/24/20 15:30 Magnesium Hydroxide (Milk Of Magnesia) 2,400 mg PRN QHS PRN PO CONSTIPATION 07/24/20 15:30 Nicotine (Nicoderm Cq 7mg Patch) 1 patch DAILY TD 07/25/20 09:00 07/25/20 00:32 DC Nicotine Polacrilex (Nicorette Gum) 2 mg PRN Q1HR PRN BC SMOKING CESSATION 07/24/20 16:30 07/26/20 16:33 DC 07/26/20 15:15 Aspirin (Aspirin Chewable) 81 mg DAILYWBKFT PO 07/25/20 08:00 08/02/20 07:52 Levothyroxine Sodium (Synthroid) 100 mcg DAILY06 PO 07/25/20 06:00 08/03/20 05:09 Lisinopril (Prinivil) 20 mg DAILY PO 07/25/20 09:00 08/02/20 07:53 Lorazepam (Ativan) 1 mg PRN Q4HRS PRN PO ANXIETY / AGITATION 07/24/20 17:00 07/31/20 05:49 Lorazepam (Ativan) 1.5 mg QHS PO 07/24/20 21:00 07/29/20 18:41 DC 07/28/20 19:39 Fluoxetine HCl (PROzac) 20 mg DAILY PO 07/25/20 09:00 07/30/20 18:04 DC 07/30/20 09:56 Risperidone (RisperDAL) 1.5 mg BID PO 07/24/20 21:00 07/29/20 18:41 DC 07/29/20 08:04 Quetiapine Fumarate (SEROquel) 800 mg QHS PO 07/24/20 21:00 08/02/20 21:08 Calcium Carbonate/ Glycine (Tums) 1,000 mg PRN Q8HRS PRN PO INDIGESTION 07/24/20 17:00 07/28/20 21:48 Divalproex Sodium (Depakote Er) 500 mg QHS PO 07/25/20 21:00 07/29/20 18:41 DC 07/28/20 19:38 Polyethylene Glycol (miraLAX) 17 gm DAILY PO 07/26/20 09:00 08/02/20 07:52 Ibuprofen (Motrin) 600 mg PRN Q6HRS PRN PO INFLAMMATION 07/25/20 15:45 08/02/20 04:37 Nicotine (Nicoderm Cq 7mg Patch) 1 patch DAILY TD 07/26/20 18:15 08/02/20 07:53 Ketoconazole (Nizoral 2% Shampoo) 1 radha PRN DAILY PRN TP SEE COMMENTS 07/28/20 14:15 Amlodipine Besylate (Norvasc) 5 mg 1X ONCE PO 07/29/20 18:00 07/29/20 18:01 DC 07/29/20 17:54 Amlodipine Besylate (Norvasc) 5 mg DAILY PO 07/30/20 09:00 08/02/20 07:52 Divalproex Sodium (Depakote Er) 1,000 mg QHS PO 07/29/20 21:00 08/01/20 18:08 DC 07/31/20 20:54 Risperidone (RisperDAL) 2 mg BID PO 07/29/20 21:00 08/02/20 21:08 Clonazepam (KlonoPIN) 1 mg HS PO 07/29/20 21:00 08/02/20 21:07 Clonazepam (KlonoPIN) 0.5 mg 0900,1300 PO 07/30/20 09:00 08/02/20 12:28 Trazodone HCl (Desyrel) 100 mg QHS PO 07/30/20 21:00 07/31/20 17:18 DC 07/30/20 19:58 Trazodone HCl (Desyrel) 100 mg PRN QHS PRN PO INSOMNIA 07/30/20 23:15 07/30/20 23:17 Trazodone HCl (Desyrel) 200 mg QHS PO 07/31/20 21:00 08/02/20 21:08 Trazodone HCl (Desyrel) 25 mg TID@0900,1300,1700 PO 08/01/20 09:00 08/02/20 17:00 Trazodone HCl (Desyrel) 50 mg 1X ONCE PO 07/31/20 17:15 07/31/20 17:32 DC 07/31/20 17:15 Mirtazapine (Remeron) 7.5 mg QHS PO 07/31/20 21:00 08/02/20 21:08 Divalproex Sodium (Depakote Er) 1,500 mg QHS PO 08/01/20 21:00 08/02/20 21:08 I have reviewed the current psychotropics carefully including drug interactions. Risk benefit ratio favors no change other than as noted in my dictated progress note. Diagnosis: Problems: (1) Schizoaffective disorder, bipolar type (2) Impulse control disorder, unspecified (3) Anxiety disorder, unspecified (4) Bipolar I disorder, current or most recent episode manic, with psychotic features with mixed features ELIDIA VELA MD Aug 03, 2020 08:13
[2020-08-03] MEDS: clonazePAM 0.5 MG TABLET PO SCH ×2 (09:00→13:45)
[2020-08-03] MEDS: NICOTINE 7MG PATCH. TD SCH (09:32)
[2020-08-03] MEDS: ASPIRIN CHEWABLE 81 MG TABLET. PO SCH (09:32)
[2020-08-03] MEDS: amLODIPine BESYLATE 5 MG TABLET PO SCH (09:33)
[2020-08-03] MEDS: LISINOPRIL 20 MG TABLET PO SCH (09:33)
[2020-08-03] MEDS: risperiDONE 2 MG TABLET. PO SCH ×2 (09:33→20:34)
[2020-08-03] MEDS: traZODone 50 MG TABLET. PO SCH ×3 (09:33→17:17)
[2020-08-03] MEDS: POLYETHYLENE GLYCOL 3350 17 GM PACKET. PO SCH (09:34)
--- NOTE | 2020-08-03 14:59 | NUR ---
Pt has been med complaint and overall appropriate in language and behaviors. He is able to make needs known and is able to follow staff directions. He has been more reasonable to requests from staff and appears less med seeking. He denies SI/HI/VH/AH/pain. He is A&Ox4. While ambulating he shows a slight (but audible) shuffle of the feet but is able to ambulate without further difficulty and has been absent of falls. He has no complaints or concerns thus far during shift. Will pass on to the next shift
[2020-08-03 16:14] VITALS: BP 111/76
[2020-08-03] MEDS: MIRTAZAPINE 7.5 MG TABLET. PO SCH (20:33)
[2020-08-03] MEDS: QUEtiapine 100 MG TABLET. PO SCH (20:34)
[2020-08-03] MEDS: traZODone 100 MG TABLET. PO SCH (20:34)
[2020-08-03] MEDS: clonazePAM 1 MG TABLET PO SCH (20:35)
[2020-08-03] MEDS: DIVALPROEX ER 500 MG TAB.ER.24H PO SCH (20:35)
[2020-08-03] MEDS ORDERED: BENZTROPINE MESYLATE 0.5 MG TABLET PO SCH (21:00)
--- NOTE | 2020-08-03 21:04 | PDOC ---
Exam Note: David Note: Please also refer to the separate dictated note~for this date of service dictated separately.~Patient seen individually. Discussed the patient with Nursing staff reviewed the chart.~Reviewed interim history and current functioning. Reviewed vital signs,~Labs/ Radiology~and current medications noted below. Continue current treatment with the changes noted in the dictated addendum note Assessment: Vital Signs/I&O: Vital Signs Date Time Temp Pulse Resp B/P (MAP) Pulse Ox O2 Delivery O2 Flow Rate FiO2 08/03/20 16:14 98.0 76 20 111/76 (88) 98 08/02/20 16:56 Room Air I & O 08/02/20 08/02/20 08/03/20 15:00 23:00 07:00 Intake Total 1080 ml 240 ml Balance 1080 ml 240 ml Current Medications: Meds: Current Medications Medications (Trade) Dose Ordered Sig/Luciana Route PRN Reason Start Time Stop Time Status Last Admin Dose Admin Acetaminophen (Tylenol) 650 mg PRN Q6HRS PRN PO MILD PAIN / TEMP > 100.3'F 07/24/20 15:30 08/01/20 04:17 Multi-Ingredient Ointment (Analgesic Wellman) 1 radha PRN QID PRN TP MUSCLE PAIN 07/24/20 15:30 Al Hydroxide/Mg Hydroxide (Mylanta Plus Xs) 15 ml PRN AFTMEALHC PRN PO DYSPEPSIA 07/24/20 15:30 Magnesium Hydroxide (Milk Of Magnesia) 2,400 mg PRN QHS PRN PO CONSTIPATION 07/24/20 15:30 Nicotine (Nicoderm Cq 7mg Patch) 1 patch DAILY TD 07/25/20 09:00 07/25/20 00:32 DC Nicotine Polacrilex (Nicorette Gum) 2 mg PRN Q1HR PRN BC SMOKING CESSATION 07/24/20 16:30 07/26/20 16:33 DC 07/26/20 15:15 Aspirin (Aspirin Chewable) 81 mg DAILYWBKFT PO 07/25/20 08:00 08/03/20 09:32 Levothyroxine Sodium (Synthroid) 100 mcg DAILY06 PO 07/25/20 06:00 08/03/20 05:09 Lisinopril (Prinivil) 20 mg DAILY PO 07/25/20 09:00 08/03/20 09:33 Lorazepam (Ativan) 1 mg PRN Q4HRS PRN PO ANXIETY / AGITATION 07/24/20 17:00 07/31/20 05:49 Lorazepam (Ativan) 1.5 mg QHS PO 07/24/20 21:00 07/29/20 18:41 DC 07/28/20 19:39 Fluoxetine HCl (PROzac) 20 mg DAILY PO 07/25/20 09:00 07/30/20 18:04 DC 07/30/20 09:56 Risperidone (RisperDAL) 1.5 mg BID PO 07/24/20 21:00 07/29/20 18:41 DC 07/29/20 08:04 Quetiapine Fumarate (SEROquel) 800 mg QHS PO 07/24/20 21:00 08/03/20 20:34 Calcium Carbonate/ Glycine (Tums) 1,000 mg PRN Q8HRS PRN PO INDIGESTION 07/24/20 17:00 07/28/20 21:48 Divalproex Sodium (Depakote Er) 500 mg QHS PO 07/25/20 21:00 07/29/20 18:41 DC 07/28/20 19:38 Polyethylene Glycol (miraLAX) 17 gm DAILY PO 07/26/20 09:00 08/03/20 09:34 Ibuprofen (Motrin) 600 mg PRN Q6HRS PRN PO INFLAMMATION 07/25/20 15:45 08/02/20 04:37 Nicotine (Nicoderm Cq 7mg Patch) 1 patch DAILY TD 07/26/20 18:15 08/03/20 09:32 Ketoconazole (Nizoral 2% Shampoo) 1 radha PRN DAILY PRN TP SEE COMMENTS 07/28/20 14:15 Amlodipine Besylate (Norvasc) 5 mg 1X ONCE PO 07/29/20 18:00 07/29/20 18:01 DC 07/29/20 17:54 Amlodipine Besylate (Norvasc) 5 mg DAILY PO 07/30/20 09:00 08/03/20 09:33 Divalproex Sodium (Depakote Er) 1,000 mg QHS PO 07/29/20 21:00 08/01/20 18:08 DC 07/31/20 20:54 Risperidone (RisperDAL) 2 mg BID PO 07/29/20 21:00 08/03/20 20:34 Clonazepam (KlonoPIN) 1 mg HS PO 07/29/20 21:00 08/03/20 20:35 Clonazepam (KlonoPIN) 0.5 mg 0900,1300 PO 07/30/20 09:00 08/03/20 13:45 Trazodone HCl (Desyrel) 100 mg QHS PO 07/30/20 21:00 07/31/20 17:18 DC 07/30/20 19:58 Trazodone HCl (Desyrel) 100 mg PRN QHS PRN PO INSOMNIA 07/30/20 23:15 07/30/20 23:17 Trazodone HCl (Desyrel) 200 mg QHS PO 07/31/20 21:00 08/03/20 20:34 Trazodone HCl (Desyrel) 25 mg TID@0900,1300,1700 PO 08/01/20 09:00 08/03/20 17:17 Trazodone HCl (Desyrel) 50 mg 1X ONCE PO 07/31/20 17:15 07/31/20 17:32 DC 07/31/20 17:15 Mirtazapine (Remeron) 7.5 mg QHS PO 07/31/20 21:00 08/03/20 20:33 Divalproex Sodium (Depakote Er) 1,500 mg QHS PO 08/01/20 21:00 08/03/20 20:35 Benztropine Mesylate (Cogentin) 0.5 mg HS PO 08/03/20 21:00 08/03/20 20:35 Current Medications Medications (Trade) Dose Ordered Sig/Luciana Route PRN Reason Start Time Stop Time Status Last Admin Dose Admin Benztropine Mesylate (Cogentin) 0.5 mg HS PO 08/03/20 21:00 08/03/20 20:35 I have reviewed the current psychotropics carefully including drug interactions. Risk benefit ratio favors no change other than as noted in my dictated progress note. Diagnosis: Problems: (1) Schizoaffective disorder, bipolar type (2) Impulse control disorder, unspecified (3) Anxiety disorder, unspecified (4) Bipolar I disorder, current or most recent episode manic, with psychotic features with mixed features MIRIAN,MAN M MD Aug 03, 2020 21:04
--- NOTE | 2020-08-03 23:56 | NUR ---
Pt located in his room for the majority of the night listening to music on the [place]. Pt up to the nurses station intermittently asking for various items. Compliant with whole medications.
[2020-08-04] MEDS: LEVOTHYROXINE 100 MCG TABLET PO SCH (05:07)
[2020-08-04 06:39] VITALS: BP 129/83
[2020-08-04 06:57] LABS: BASO # 0.1 x10^3/uL (0.0-0.2); BASO % 1 % (0-3); EOS # 0.1 x10^3/uL (0.0-0.7); EOS % 2 % (0-3); HEMATOCRIT 38.7 % (39.0-53.0); HEMOGLOBIN 12.6 g/dL (13.0-17.5); LYMPH # 1.6 x10^3/uL (1.0-4.8); LYMPH % 21 % (24-48); MEAN CORPUSCULAR HEMOGLOBIN 32 pg (25-35); MEAN CORPUSCULAR HGB CONC 33 g/dL (31-37); MEAN CORPUSCULAR VOLUME 98 fL (79-100); MONO # 0.8 x10^3/uL (0.0-1.1); MONO % 11 % (0-9); NEUT % 65 % (31-73); PLATELET COUNT 328 x10^3/uL (140-400); RED BLOOD COUNT 3.94 x10^6/uL (4.30-5.70); RED CELL DISTRIBUTION WIDTH 14.3 % (11.5-14.5); WHITE BLOOD COUNT 7.7 x10^3/uL (4.0-11.0)
[2020-08-04 07:08] LABS: ALBUMIN 3.3 g/dL (3.4-5.0); CALCIUM 8.7 mg/dL (8.5-10.1); CREATININE 0.9 mg/dL (0.7-1.3); GFR 83.9; POTASSIUM 4.3 mmol/L (3.5-5.1); TOTAL BILIRUBIN 0.3 mg/dL (0.2-1.0); TOTAL PROTEIN 6.5 g/dL (6.4-8.2)
[2020-08-04 07:17] LABS: VAL ACID 57 mcg/mL (50-100)
[2020-08-04] MEDS: ASPIRIN CHEWABLE 81 MG TABLET. PO SCH (07:58)
[2020-08-04] MEDS: amLODIPine BESYLATE 5 MG TABLET PO SCH (07:58)
[2020-08-04] MEDS: LISINOPRIL 20 MG TABLET PO SCH (07:59)
[2020-08-04] MEDS: NICOTINE 7MG PATCH. TD SCH (07:59)
[2020-08-04] MEDS: traZODone 50 MG TABLET. PO SCH ×3 (07:59→17:39)
[2020-08-04] MEDS: risperiDONE 2 MG TABLET. PO SCH ×2 (07:59→21:22)
[2020-08-04] MEDS: clonazePAM 0.5 MG TABLET PO SCH ×2 (07:59→14:24)
[2020-08-04] MEDS: POLYETHYLENE GLYCOL 3350 17 GM PACKET. PO SCH (08:00)
--- NOTE | 2020-08-04 08:20 | PDOC ---
Exam Note: David Note: This note is a late entry for 08/03/2020 covers elements not covered in my initial note. Subjective: The patient was reviewed on telehealth rounds in the evening of 08/03/2020 with Sindi MARSHALL. Discussed with nursing staff, reviewed the chart. He slept 5-1/4 hours previous night. Overall the patient is less grandiose, less threatening, less agitated, appropriate on the unit. He does have some parkinsonian gait and we will add Cogentin 0.5 mg h.s. and later consider reducing Seroquel. Review of Systems: No CV, , pulmonary, eye, ENT system symptoms on review. Mental Status Exam: The patient is oriented reasonably. Speech is coherent, less pressured. Abstraction is fair. Computation is impaired. Language function is intact. Mood and affect less grandiose. No suicidal or homicidal ideation. Laboratory Data: Reviewed. Impression: Bipolar 1 disorder manic with psychotic features. Anxiety disorder unspecified. Impulse control disorder unspecified. Plan: Continue psychotropics from initial note. Add Cogentin 0.5 mg h.s. Rest psychotropics unchanged for now. Assessment: Vital Signs/I&O: Vital Signs Date Time Temp Pulse Resp B/P (MAP) Pulse Ox O2 Delivery O2 Flow Rate FiO2 08/04/20 07:59 75 129/83 08/04/20 06:39 98.1 20 96 08/02/20 16:56 Room Air I & O 08/03/20 08/03/20 08/04/20 15:00 23:00 07:00 Intake Total 1080 ml 840 ml Balance 1080 ml 840 ml Labs: Laboratory Tests Test 08/04/20 06:34 White Blood Count 7.7 x10^3/uL (4.0-11.0) Red Blood Count 3.94 x10^6/uL (4.30-5.70) L Hemoglobin 12.6 g/dL (13.0-17.5) L Hematocrit 38.7 % (39.0-53.0) L Mean Corpuscular Volume 98 fL (79-100) Mean Corpuscular Hemoglobin 32 pg (25-35) Mean Corpuscular Hemoglobin Concent 33 g/dL (31-37) Red Cell Distribution Width 14.3 % (11.5-14.5) Platelet Count 328 x10^3/uL (140-400) Neutrophils (%) (Auto) 65 % (31-73) Lymphocytes (%) (Auto) 21 % (24-48) L Monocytes (%) (Auto) 11 % (0-9) H Eosinophils (%) (Auto) 2 % (0-3) Basophils (%) (Auto) 1 % (0-3) Neutrophils # (Auto) 5.0 x10^3uL (1.8-7.7) Lymphocytes # (Auto) 1.6 x10^3/uL (1.0-4.8) Monocytes # (Auto) 0.8 x10^3/uL (0.0-1.1) Eosinophils # (Auto) 0.1 x10^3/uL (0.0-0.7) Basophils # (Auto) 0.1 x10^3/uL (0.0-0.2) Sodium Level 140 mmol/L (136-145) Potassium Level 4.3 mmol/L (3.5-5.1) Chloride Level 106 mmol/L (98-107) Carbon Dioxide Level 27 mmol/L (21-32) Anion Gap 7 (6-14) Blood Urea Nitrogen 20 mg/dL (8-26) Creatinine 0.9 mg/dL (0.7-1.3) Estimated GFR (Cockcroft-Gault) 83.9 BUN/Creatinine Ratio 22 (6-20) H Glucose Level 88 mg/dL (70-99) Calcium Level 8.7 mg/dL (8.5-10.1) Total Bilirubin 0.3 mg/dL (0.2-1.0) Aspartate Amino Transferase (AST) 11 U/L (15-37) L Alanine Aminotransferase (ALT) 17 U/L (16-63) Alkaline Phosphatase 48 U/L (46-116) Ammonia 16 mcmol/L (11-34) Total Protein 6.5 g/dL (6.4-8.2) Albumin 3.3 g/dL (3.4-5.0) L Albumin/Globulin Ratio 1.0 (1.0-1.7) Valproic Acid Level 57 mcg/mL (50-100) Valproic Acid Last Dose Date 08/03/20 Valproic Acid Last Dose Time 2100 Current Medications: Meds: Laboratory Tests Test 08/04/20 06:34 White Blood Count 7.7 x10^3/uL Red Blood Count 3.94 x10^6/uL Hemoglobin 12.6 g/dL Hematocrit 38.7 % Mean Corpuscular Volume 98 fL Mean Corpuscular Hemoglobin 32 pg Mean Corpuscular Hemoglobin Concent 33 g/dL Red Cell Distribution Width 14.3 % Platelet Count 328 x10^3/uL Neutrophils (%) (Auto) 65 % Lymphocytes (%) (Auto) 21 % Monocytes (%) (Auto) 11 % Eosinophils (%) (Auto) 2 % Basophils (%) (Auto) 1 % Neutrophils # (Auto) 5.0 x10^3uL Lymphocytes # (Auto) 1.6 x10^3/uL Monocytes # (Auto) 0.8 x10^3/uL Eosinophils # (Auto) 0.1 x10^3/uL Basophils # (Auto) 0.1 x10^3/uL Sodium Level 140 mmol/L Potassium Level 4.3 mmol/L Chloride Level 106 mmol/L Carbon Dioxide Level 27 mmol/L Anion Gap 7 Blood Urea Nitrogen 20 mg/dL Creatinine 0.9 mg/dL Estimated GFR (Cockcroft-Gault) 83.9 BUN/Creatinine Ratio 22 Glucose Level 88 mg/dL Calcium Level 8.7 mg/dL Total Bilirubin 0.3 mg/dL Aspartate Amino Transf (AST/SGOT) 11 U/L Alanine Aminotransferase (ALT/SGPT) 17 U/L Alkaline Phosphatase 48 U/L Ammonia 16 mcmol/L Total Protein 6.5 g/dL Albumin 3.3 g/dL Albumin/Globulin Ratio 1.0 Valproic Acid (Depakene) Level 57 mcg/mL Valproic Acid Last Dose Date 08/03/20 Valproic Acid Last Dose Time 2100 Current Medications Medications (Trade) Dose Ordered Sig/Luciana Route PRN Reason Start Time Stop Time Status Last Admin Dose Admin Acetaminophen (Tylenol) 650 mg PRN Q6HRS PRN PO MILD PAIN / TEMP > 100.3'F 07/24/20 15:30 08/01/20 04:17 Multi-Ingredient Ointment (Analgesic Tichnor) 1 radha PRN QID PRN TP MUSCLE PAIN 07/24/20 15:30 Al Hydroxide/Mg Hydroxide (Mylanta Plus Xs) 15 ml PRN AFTMEALHC PRN PO DYSPEPSIA 07/24/20 15:30 Magnesium Hydroxide (Milk Of Magnesia) 2,400 mg PRN QHS PRN PO CONSTIPATION 07/24/20 15:30 Nicotine (Nicoderm Cq 7mg Patch) 1 patch DAILY TD 07/25/20 09:00 07/25/20 00:32 DC Nicotine Polacrilex (Nicorette Gum) 2 mg PRN Q1HR PRN BC SMOKING CESSATION 07/24/20 16:30 07/26/20 16:33 DC 07/26/20 15:15 Aspirin (Aspirin Chewable) 81 mg DAILYWBKFT PO 07/25/20 08:00 08/04/20 07:58 Levothyroxine Sodium (Synthroid) 100 mcg DAILY06 PO 07/25/20 06:00 08/04/20 05:07 Lisinopril (Prinivil) 20 mg DAILY PO 07/25/20 09:00 08/04/20 07:59 Lorazepam (Ativan) 1 mg PRN Q4HRS PRN PO ANXIETY / AGITATION 07/24/20 17:00 07/31/20 05:49 Lorazepam (Ativan) 1.5 mg QHS PO 07/24/20 21:00 07/29/20 18:41 DC 07/28/20 19:39 Fluoxetine HCl (PROzac) 20 mg DAILY PO 07/25/20 09:00 07/30/20 18:04 DC 07/30/20 09:56 Risperidone (RisperDAL) 1.5 mg BID PO 07/24/20 21:00 07/29/20 18:41 DC 07/29/20 08:04 Quetiapine Fumarate (SEROquel) 800 mg QHS PO 07/24/20 21:00 08/03/20 20:34 Calcium Carbonate/ Glycine (Tums) 1,000 mg PRN Q8HRS PRN PO INDIGESTION 07/24/20 17:00 07/28/20 21:48 Divalproex Sodium (Depakote Er) 500 mg QHS PO 07/25/20 21:00 07/29/20 18:41 DC 07/28/20 19:38 Polyethylene Glycol (miraLAX) 17 gm DAILY PO 07/26/20 09:00 08/04/20 08:00 Ibuprofen (Motrin) 600 mg PRN Q6HRS PRN PO INFLAMMATION 07/25/20 15:45 08/02/20 04:37 Nicotine (Nicoderm Cq 7mg Patch) 1 patch DAILY TD 07/26/20 18:15 08/04/20 07:59 Ketoconazole (Nizoral 2% Shampoo) 1 radha PRN DAILY PRN TP SEE COMMENTS 07/28/20 14:15 Amlodipine Besylate (Norvasc) 5 mg 1X ONCE PO 07/29/20 18:00 07/29/20 18:01 DC 07/29/20 17:54 Amlodipine Besylate (Norvasc) 5 mg DAILY PO 07/30/20 09:00 08/04/20 07:58 Divalproex Sodium (Depakote Er) 1,000 mg QHS PO 07/29/20 21:00 08/01/20 18:08 DC 07/31/20 20:54 Risperidone (RisperDAL) 2 mg BID PO 07/29/20 21:00 08/04/20 07:59 Clonazepam (KlonoPIN) 1 mg HS PO 07/29/20 21:00 08/03/20 20:35 Clonazepam (KlonoPIN) 0.5 mg 0900,1300 PO 07/30/20 09:00 08/04/20 07:59 Trazodone HCl (Desyrel) 100 mg QHS PO 07/30/20 21:00 07/31/20 17:18 DC 07/30/20 19:58 Trazodone HCl (Desyrel) 100 mg PRN QHS PRN PO INSOMNIA 07/30/20 23:15 07/30/20 23:17 Trazodone HCl (Desyrel) 200 mg QHS PO 07/31/20 21:00 08/03/20 20:34 Trazodone HCl (Desyrel) 25 mg TID@0900,1300,1700 PO 08/01/20 09:00 08/04/20 07:59 Trazodone HCl (Desyrel) 50 mg 1X ONCE PO 07/31/20 17:15 07/31/20 17:32 DC 07/31/20 17:15 Mirtazapine (Remeron) 7.5 mg QHS PO 07/31/20 21:00 08/03/20 20:33 Divalproex Sodium (Depakote Er) 1,500 mg QHS PO 08/01/20 21:00 08/03/20 20:35 Benztropine Mesylate (Cogentin) 0.5 mg HS PO 08/03/20 21:00 08/03/20 20:35 Current Medications Medications (Trade) Dose Ordered Sig/Luciana Route PRN Reason Start Time Stop Time Status Last Admin Dose Admin Benztropine Mesylate (Cogentin) 0.5 mg HS PO 08/03/20 21:00 08/03/20 20:35 I have reviewed the current psychotropics carefully including drug interactions. Risk benefit ratio favors no change other than as noted in my dictated progress note. Diagnosis: Problems: (1) Schizoaffective disorder, bipolar type (2) Impulse control disorder, unspecified (3) Anxiety disorder, unspecified (4) Bipolar I disorder, current or most recent episode manic, with psychotic features with mixed features ELIDIA VELA MD Aug 04, 2020 08:20
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
[2020-08-04 15:57] VITALS: BP 134/86
--- NOTE | 2020-08-04 18:42 | NUR ---
As pt was walking by this nurse noticed that his nicotine patch as observable on the front of his neck. This nurse remembers placing it on his shoulder during morning medication administration. When asked who moved the patch pt replied, "I did." This nurse instructed him to not tamper with medication patches and to only allow nursing staff to apply, relocate, and remove the patches. Pt verbalized understanding.
--- NOTE | 2020-08-04 21:00 | PDOC ---
Exam Note: David Note: Please also refer to the separate dictated note~for this date of service dictated separately.~Patient seen individually. Discussed the patient with Nursing staff reviewed the chart.~Reviewed interim history and current functioning. Reviewed vital signs,~Labs/ Radiology~and current medications noted below. Continue current treatment with the changes noted in the dictated addendum note Assessment: Vital Signs/I&O: Vital Signs Date Time Temp Pulse Resp B/P (MAP) Pulse Ox O2 Delivery O2 Flow Rate FiO2 08/04/20 15:57 98.4 73 18 134/86 (102) 93 08/02/20 16:56 Room Air I & O 08/03/20 08/03/20 08/04/20 14:59 22:59 06:59 Intake Total 1080 ml 840 ml Balance 1080 ml 840 ml Labs: Laboratory Tests Test 08/04/20 06:34 White Blood Count 7.7 x10^3/uL (4.0-11.0) Red Blood Count 3.94 x10^6/uL (4.30-5.70) L Hemoglobin 12.6 g/dL (13.0-17.5) L Hematocrit 38.7 % (39.0-53.0) L Mean Corpuscular Volume 98 fL (79-100) Mean Corpuscular Hemoglobin 32 pg (25-35) Mean Corpuscular Hemoglobin Concent 33 g/dL (31-37) Red Cell Distribution Width 14.3 % (11.5-14.5) Platelet Count 328 x10^3/uL (140-400) Neutrophils (%) (Auto) 65 % (31-73) Lymphocytes (%) (Auto) 21 % (24-48) L Monocytes (%) (Auto) 11 % (0-9) H Eosinophils (%) (Auto) 2 % (0-3) Basophils (%) (Auto) 1 % (0-3) Neutrophils # (Auto) 5.0 x10^3uL (1.8-7.7) Lymphocytes # (Auto) 1.6 x10^3/uL (1.0-4.8) Monocytes # (Auto) 0.8 x10^3/uL (0.0-1.1) Eosinophils # (Auto) 0.1 x10^3/uL (0.0-0.7) Basophils # (Auto) 0.1 x10^3/uL (0.0-0.2) Sodium Level 140 mmol/L (136-145) Potassium Level 4.3 mmol/L (3.5-5.1) Chloride Level 106 mmol/L (98-107) Carbon Dioxide Level 27 mmol/L (21-32) Anion Gap 7 (6-14) Blood Urea Nitrogen 20 mg/dL (8-26) Creatinine 0.9 mg/dL (0.7-1.3) Estimated GFR (Cockcroft-Gault) 83.9 BUN/Creatinine Ratio 22 (6-20) H Glucose Level 88 mg/dL (70-99) Calcium Level 8.7 mg/dL (8.5-10.1) Total Bilirubin 0.3 mg/dL (0.2-1.0) Aspartate Amino Transferase (AST) 11 U/L (15-37) L Alanine Aminotransferase (ALT) 17 U/L (16-63) Alkaline Phosphatase 48 U/L (46-116) Ammonia 16 mcmol/L (11-34) Total Protein 6.5 g/dL (6.4-8.2) Albumin 3.3 g/dL (3.4-5.0) L Albumin/Globulin Ratio 1.0 (1.0-1.7) Valproic Acid Level 57 mcg/mL (50-100) Valproic Acid Last Dose Date 08/03/20 Valproic Acid Last Dose Time 2100 Current Medications: Meds: Laboratory Tests Test 08/04/20 06:34 White Blood Count 7.7 x10^3/uL Red Blood Count 3.94 x10^6/uL Hemoglobin 12.6 g/dL Hematocrit 38.7 % Mean Corpuscular Volume 98 fL Mean Corpuscular Hemoglobin 32 pg Mean Corpuscular Hemoglobin Concent 33 g/dL Red Cell Distribution Width 14.3 % Platelet Count 328 x10^3/uL Neutrophils (%) (Auto) 65 % Lymphocytes (%) (Auto) 21 % Monocytes (%) (Auto) 11 % Eosinophils (%) (Auto) 2 % Basophils (%) (Auto) 1 % Neutrophils # (Auto) 5.0 x10^3uL Lymphocytes # (Auto) 1.6 x10^3/uL Monocytes # (Auto) 0.8 x10^3/uL Eosinophils # (Auto) 0.1 x10^3/uL Basophils # (Auto) 0.1 x10^3/uL Sodium Level 140 mmol/L Potassium Level 4.3 mmol/L Chloride Level 106 mmol/L Carbon Dioxide Level 27 mmol/L Anion Gap 7 Blood Urea Nitrogen 20 mg/dL Creatinine 0.9 mg/dL Estimated GFR (Cockcroft-Gault) 83.9 BUN/Creatinine Ratio 22 Glucose Level 88 mg/dL Calcium Level 8.7 mg/dL Total Bilirubin 0.3 mg/dL Aspartate Amino Transf (AST/SGOT) 11 U/L Alanine Aminotransferase (ALT/SGPT) 17 U/L Alkaline Phosphatase 48 U/L Ammonia 16 mcmol/L Total Protein 6.5 g/dL Albumin 3.3 g/dL Albumin/Globulin Ratio 1.0 Valproic Acid (Depakene) Level 57 mcg/mL Valproic Acid Last Dose Date 08/03/20 Valproic Acid Last Dose Time 2100 Current Medications Medications (Trade) Dose Ordered Sig/Luciana Route PRN Reason Start Time Stop Time Status Last Admin Dose Admin Acetaminophen (Tylenol) 650 mg PRN Q6HRS PRN PO MILD PAIN / TEMP > 100.3'F 07/24/20 15:30 08/01/20 04:17 Multi-Ingredient Ointment (Analgesic Tarkio) 1 radha PRN QID PRN TP MUSCLE PAIN 07/24/20 15:30 Al Hydroxide/Mg Hydroxide (Mylanta Plus Xs) 15 ml PRN AFTMEALHC PRN PO DYSPEPSIA 07/24/20 15:30 Magnesium Hydroxide (Milk Of Magnesia) 2,400 mg PRN QHS PRN PO CONSTIPATION 07/24/20 15:30 Nicotine (Nicoderm Cq 7mg Patch) 1 patch DAILY TD 07/25/20 09:00 07/25/20 00:32 DC Nicotine Polacrilex (Nicorette Gum) 2 mg PRN Q1HR PRN BC SMOKING CESSATION 07/24/20 16:30 07/26/20 16:33 DC 07/26/20 15:15 Aspirin (Aspirin Chewable) 81 mg DAILYWBKFT PO 07/25/20 08:00 08/04/20 07:58 Levothyroxine Sodium (Synthroid) 100 mcg DAILY06 PO 07/25/20 06:00 08/04/20 05:07 Lisinopril (Prinivil) 20 mg DAILY PO 07/25/20 09:00 08/04/20 07:59 Lorazepam (Ativan) 1 mg PRN Q4HRS PRN PO ANXIETY / AGITATION 07/24/20 17:00 07/31/20 05:49 Lorazepam (Ativan) 1.5 mg QHS PO 07/24/20 21:00 07/29/20 18:41 DC 07/28/20 19:39 Fluoxetine HCl (PROzac) 20 mg DAILY PO 07/25/20 09:00 07/30/20 18:04 DC 07/30/20 09:56 Risperidone (RisperDAL) 1.5 mg BID PO 07/24/20 21:00 07/29/20 18:41 DC 07/29/20 08:04 Quetiapine Fumarate (SEROquel) 800 mg QHS PO 07/24/20 21:00 08/03/20 20:34 Calcium Carbonate/ Glycine (Tums) 1,000 mg PRN Q8HRS PRN PO INDIGESTION 07/24/20 17:00 07/28/20 21:48 Divalproex Sodium (Depakote Er) 500 mg QHS PO 07/25/20 21:00 07/29/20 18:41 DC 07/28/20 19:38 Polyethylene Glycol (miraLAX) 17 gm DAILY PO 07/26/20 09:00 08/04/20 08:00 Ibuprofen (Motrin) 600 mg PRN Q6HRS PRN PO INFLAMMATION 07/25/20 15:45 08/02/20 04:37 Nicotine (Nicoderm Cq 7mg Patch) 1 patch DAILY TD 07/26/20 18:15 08/04/20 07:59 Ketoconazole (Nizoral 2% Shampoo) 1 radha PRN DAILY PRN TP SEE COMMENTS 07/28/20 14:15 Amlodipine Besylate (Norvasc) 5 mg 1X ONCE PO 07/29/20 18:00 07/29/20 18:01 DC 07/29/20 17:54 Amlodipine Besylate (Norvasc) 5 mg DAILY PO 07/30/20 09:00 08/04/20 07:58 Divalproex Sodium (Depakote Er) 1,000 mg QHS PO 07/29/20 21:00 08/01/20 18:08 DC 07/31/20 20:54 Risperidone (RisperDAL) 2 mg BID PO 07/29/20 21:00 08/04/20 07:59 Clonazepam (KlonoPIN) 1 mg HS PO 07/29/20 21:00 08/03/20 20:35 Clonazepam (KlonoPIN) 0.5 mg 0900,1300 PO 07/30/20 09:00 08/04/20 14:24 Trazodone HCl (Desyrel) 100 mg QHS PO 07/30/20 21:00 07/31/20 17:18 DC 07/30/20 19:58 Trazodone HCl (Desyrel) 100 mg PRN QHS PRN PO INSOMNIA 07/30/20 23:15 07/30/20 23:17 Trazodone HCl (Desyrel) 200 mg QHS PO 07/31/20 21:00 08/03/20 20:34 Trazodone HCl (Desyrel) 25 mg TID@0900,1300,1700 PO 08/01/20 09:00 08/04/20 17:39 Trazodone HCl (Desyrel) 50 mg 1X ONCE PO 07/31/20 17:15 07/31/20 17:32 DC 07/31/20 17:15 Mirtazapine (Remeron) 7.5 mg QHS PO 07/31/20 21:00 08/04/20 17:26 DC 08/03/20 20:33 Divalproex Sodium (Depakote Er) 1,500 mg QHS PO 08/01/20 21:00 08/03/20 20:35 Benztropine Mesylate (Cogentin) 0.5 mg HS PO 08/03/20 21:00 08/04/20 17:26 DC 08/03/20 20:35 Benztropine Mesylate (Cogentin) 1 mg HS PO 08/04/20 21:00 Mirtazapine (Remeron) 15 mg QHS PO 08/04/20 21:00 Current Medications Medications (Trade) Dose Ordered Sig/Luciana Route PRN Reason Start Time Stop Time Status Last Admin Dose Admin Benztropine Mesylate (Cogentin) 0.5 mg HS PO 08/03/20 21:00 08/04/20 17:26 DC 08/03/20 20:35 I have reviewed the current psychotropics carefully including drug interactions. Risk benefit ratio favors no change other than as noted in my dictated progress note. Diagnosis: Problems: (1) Schizoaffective disorder, bipolar type (2) Impulse control disorder, unspecified (3) Anxiety disorder, unspecified (4) Bipolar I disorder, current or most recent episode manic, with psychotic features with mixed features ELIDIA VELA MD Aug 04, 2020 21:00
[2020-08-04] MEDS: DIVALPROEX ER 500 MG TAB.ER.24H PO SCH (21:21)
[2020-08-04] MEDS: QUEtiapine 100 MG TABLET. PO SCH (21:21)
[2020-08-04] MEDS: traZODone 100 MG TABLET. PO SCH (21:22)
[2020-08-04] MEDS: BENZTROPINE MESYLATE 0.5 MG TABLET PO SCH (21:23)
[2020-08-04] MEDS: clonazePAM 1 MG TABLET PO SCH (21:24)
[2020-08-04] MEDS: MIRTAZAPINE 15 MG TABLET PO SCH (21:24)
--- NOTE | 2020-08-04 23:41 | NUR ---
Pt located in the dayroom this evening watching the [employer] game. Pt calm and interactive with peers. Compliant with whole medications. Pt much less attention seeking/ med seeking this evening.
--- NOTE | 2020-08-05 02:21 | NUR ---
Pt has urinated x2 on the floor tonight. Pt states that he is too tired and doesn't think his legs can move.
[2020-08-05] MEDS: LEVOTHYROXINE 100 MCG TABLET PO SCH (05:12)
[2020-08-05 06:34] VITALS: BP 149/85
[2020-08-05] MEDS: ASPIRIN CHEWABLE 81 MG TABLET. PO SCH (07:43)
[2020-08-05] MEDS: risperiDONE 2 MG TABLET. PO SCH ×2 (07:43→20:33)
[2020-08-05] MEDS: LISINOPRIL 20 MG TABLET PO SCH (07:43)
[2020-08-05] MEDS: clonazePAM 0.5 MG TABLET PO SCH ×2 (07:43→14:17)
[2020-08-05] MEDS: amLODIPine BESYLATE 5 MG TABLET PO SCH (07:44)
[2020-08-05] MEDS: NICOTINE 7MG PATCH. TD SCH (07:44)
[2020-08-05] MEDS: POLYETHYLENE GLYCOL 3350 17 GM PACKET. PO SCH (07:44)
[2020-08-05] MEDS: traZODone 50 MG TABLET. PO SCH ×3 (07:45→15:01)
--- NOTE | 2020-08-05 08:53 | PDOC ---
Exam Note: David Note: This note is a late entry for 08/04/2020 covers elements not covered in my initial note. Subjective: The patient was reviewed on telehealth rounds in the evening of 08/04/2020 with Sindi MARSHALL. Discussed with nursing staff, reviewed the chart. He slept 3-1/4 hours previous night. The patient has been overall more appropriate, up to the nursing station, somewhat anxious, but redirects. He has multiple requests, repetitive. He does have some gait disturbance and he is on Cogentin 0.5 mg h.s. due to extrapyramidal side effects from the Risperdal and we will increase this to 1 mg p.o. h.s. Review of Systems: No CV, , pulmonary, eye, ENT system symptoms on review. Mental Status Exam: The patient is oriented reasonably. Speech is coherent, less pressured, less loud. Abstraction is fair. Computation is impaired. Language function is intact. Mood and affect less grandiose. No suicidal or homicidal ideation. Laboratory Data: Reviewed. Impression: Bipolar 1 disorder manic with psychotic features. Anxiety disorder unspecified. Impulse control disorder unspecified. Plan: Continue psychotropics from initial note. Valproic acid level today is 57 therapeutic. Given his ongoing insomnia, increase Remeron from 7.5 mg h.s. to 15 mg h.s., Cogentin from 0.5 mg h.s. to 1 mg h.s. Rest unchanged for now, but we may consider reducing Seroquel as he stabilizes on the Depakote and if the extrapyramidal side effects continue. Assessment: Vital Signs/I&O: Vital Signs Date Time Temp Pulse Resp B/P (MAP) Pulse Ox O2 Delivery O2 Flow Rate FiO2 08/05/20 07:44 94 149/85 08/05/20 06:34 97.9 20 96 Room Air I & O 08/04/20 08/04/20 08/05/20 15:00 23:00 07:00 Intake Total 860 ml 460 ml 240 ml Balance 860 ml 460 ml 240 ml Current Medications: Meds: Current Medications Medications (Trade) Dose Ordered Sig/Luciana Route PRN Reason Start Time Stop Time Status Last Admin Dose Admin Acetaminophen (Tylenol) 650 mg PRN Q6HRS PRN PO MILD PAIN / TEMP > 100.3'F 07/24/20 15:30 08/01/20 04:17 Multi-Ingredient Ointment (Analgesic [place]) 1 radha PRN QID PRN TP MUSCLE PAIN 07/24/20 15:30 Al Hydroxide/Mg Hydroxide (Mylanta Plus Xs) 15 ml PRN AFTMEALHC PRN PO DYSPEPSIA 07/24/20 15:30 Magnesium Hydroxide (Milk Of Magnesia) 2,400 mg PRN QHS PRN PO CONSTIPATION 07/24/20 15:30 Nicotine (Nicoderm Cq 7mg Patch) 1 patch DAILY TD 07/25/20 09:00 07/25/20 00:32 DC Nicotine Polacrilex (Nicorette Gum) 2 mg PRN Q1HR PRN BC SMOKING CESSATION 07/24/20 16:30 07/26/20 16:33 DC 07/26/20 15:15 Aspirin (Aspirin Chewable) 81 mg DAILYWBKFT PO 07/25/20 08:00 08/05/20 07:43 Levothyroxine Sodium (Synthroid) 100 mcg DAILY06 PO 07/25/20 06:00 08/05/20 05:12 Lisinopril (Prinivil) 20 mg DAILY PO 07/25/20 09:00 08/05/20 07:43 Lorazepam (Ativan) 1 mg PRN Q4HRS PRN PO ANXIETY / AGITATION 07/24/20 17:00 07/31/20 05:49 Lorazepam (Ativan) 1.5 mg QHS PO 07/24/20 21:00 07/29/20 18:41 DC 07/28/20 19:39 Fluoxetine HCl (PROzac) 20 mg DAILY PO 07/25/20 09:00 07/30/20 18:04 DC 07/30/20 09:56 Risperidone (RisperDAL) 1.5 mg BID PO 07/24/20 21:00 07/29/20 18:41 DC 07/29/20 08:04 Quetiapine Fumarate (SEROquel) 800 mg QHS PO 07/24/20 21:00 08/04/20 21:21 Calcium Carbonate/ Glycine (Tums) 1,000 mg PRN Q8HRS PRN PO INDIGESTION 07/24/20 17:00 07/28/20 21:48 Divalproex Sodium (Depakote Er) 500 mg QHS PO 07/25/20 21:00 07/29/20 18:41 DC 07/28/20 19:38 Polyethylene Glycol (miraLAX) 17 gm DAILY PO 07/26/20 09:00 08/05/20 07:44 Ibuprofen (Motrin) 600 mg PRN Q6HRS PRN PO INFLAMMATION 07/25/20 15:45 08/02/20 04:37 Nicotine (Nicoderm Cq 7mg Patch) 1 patch DAILY TD 07/26/20 18:15 08/05/20 07:44 Ketoconazole (Nizoral 2% Shampoo) 1 radha PRN DAILY PRN TP SEE COMMENTS 07/28/20 14:15 Amlodipine Besylate (Norvasc) 5 mg 1X ONCE PO 07/29/20 18:00 07/29/20 18:01 DC 07/29/20 17:54 Amlodipine Besylate (Norvasc) 5 mg DAILY PO 07/30/20 09:00 08/05/20 07:44 Divalproex Sodium (Depakote Er) 1,000 mg QHS PO 07/29/20 21:00 08/01/20 18:08 DC 07/31/20 20:54 Risperidone (RisperDAL) 2 mg BID PO 07/29/20 21:00 08/05/20 07:43 Clonazepam (KlonoPIN) 1 mg HS PO 07/29/20 21:00 08/04/20 21:24 Clonazepam (KlonoPIN) 0.5 mg 0900,1300 PO 07/30/20 09:00 08/05/20 07:43 Trazodone HCl (Desyrel) 100 mg QHS PO 07/30/20 21:00 07/31/20 17:18 DC 07/30/20 19:58 Trazodone HCl (Desyrel) 100 mg PRN QHS PRN PO INSOMNIA 07/30/20 23:15 07/30/20 23:17 Trazodone HCl (Desyrel) 200 mg QHS PO 07/31/20 21:00 08/04/20 21:22 Trazodone HCl (Desyrel) 25 mg TID@0900,1300,1700 PO 08/01/20 09:00 08/04/20 17:39 Trazodone HCl (Desyrel) 50 mg 1X ONCE PO 07/31/20 17:15 07/31/20 17:32 DC 07/31/20 17:15 Mirtazapine (Remeron) 7.5 mg QHS PO 07/31/20 21:00 08/04/20 17:26 DC 08/03/20 20:33 Divalproex Sodium (Depakote Er) 1,500 mg QHS PO 08/01/20 21:00 08/04/20 21:21 Benztropine Mesylate (Cogentin) 0.5 mg HS PO 08/03/20 21:00 08/04/20 17:26 DC 08/03/20 20:35 Benztropine Mesylate (Cogentin) 1 mg HS PO 08/04/20 21:00 08/04/20 21:23 Mirtazapine (Remeron) 15 mg QHS PO 08/04/20 21:00 08/04/20 21:24 Current Medications Medications (Trade) Dose Ordered Sig/Luciana Route PRN Reason Start Time Stop Time Status Last Admin Dose Admin Benztropine Mesylate (Cogentin) 1 mg HS PO 08/04/20 21:00 08/04/20 21:23 Mirtazapine (Remeron) 15 mg QHS PO 08/04/20 21:00 08/04/20 21:24 I have reviewed the current psychotropics carefully including drug interactions. Risk benefit ratio favors no change other than as noted in my dictated progress note. Diagnosis: Problems: (1) Impulse control disorder, unspecified (2) Anxiety disorder, unspecified (3) Bipolar I disorder, current or most recent episode manic, with psychotic features with mixed features ELIDIA VELA MD Aug 05, 2020 08:53
--- NOTE | 2020-08-05 09:48 | NUR ---
During morning medication administration pt stated that he had already taken his nicotine patch off and disposed of it. This nurse reinforced yesterday's education that I had with him concerning not tampering with medication patches. He verbalized understanding. Morning scheduled dose fo Trazodone held d/t pt's drowsiness during the day, frequent napping, and shuffling of the feet. Pt has been med complaint and overall appropriate in language and behaviors. He is able to make needs known and is able to follow staff directions. He has been more reasonable to requests from staff and appears less med seeking. He denies SI/HI/VH/AH/pain. He is A&Ox4. While ambulating he shows a slight (but audible) shuffle of the feet but is able to ambulate without further difficulty and has been absent of falls.
[2020-08-05 16:44] VITALS: BP 143/83
--- NOTE | 2020-08-05 18:19 | NUR ---
Pt reports "burning" and irritation in both of his eyes. R eye appears slightly red. No drainage noted. Will pass on to the following shift so Dr can see pt during rounds in the morning of 08/06/20
[2020-08-05] MEDS ORDERED: traZODone 100 MG TABLET. PO PRN (20:00)
[2020-08-05] MEDS: DIVALPROEX ER 500 MG TAB.ER.24H PO SCH (20:33)
[2020-08-05] MEDS: BENZTROPINE MESYLATE 0.5 MG TABLET PO SCH (20:34)
[2020-08-05] MEDS: MIRTAZAPINE 15 MG TABLET PO SCH (20:34)
[2020-08-05] MEDS: QUEtiapine 100 MG TABLET. PO SCH (20:34)
[2020-08-05] MEDS: clonazePAM 1 MG TABLET PO SCH (20:35)
--- NOTE | 2020-08-05 21:05 | PDOC ---
Exam Note: David Note: Please also refer to the separate dictated note~for this date of service dictated separately.~Patient seen individually. Discussed the patient with Nursing staff reviewed the chart.~Reviewed interim history and current functioning. Reviewed vital signs,~Labs/ Radiology~and current medications noted below. Continue current treatment with the changes noted in the dictated addendum note Assessment: Vital Signs/I&O: Vital Signs Date Time Temp Pulse Resp B/P (MAP) Pulse Ox O2 Delivery O2 Flow Rate FiO2 08/05/20 16:44 97.2 79 16 143/83 (103) 97 08/05/20 06:34 Room Air I & O 08/04/20 08/04/20 08/05/20 15:00 23:00 07:00 Intake Total 860 ml 460 ml 240 ml Balance 860 ml 460 ml 240 ml Current Medications: Meds: Current Medications Medications (Trade) Dose Ordered Sig/Luciana Route PRN Reason Start Time Stop Time Status Last Admin Dose Admin Acetaminophen (Tylenol) 650 mg PRN Q6HRS PRN PO MILD PAIN / TEMP > 100.3'F 07/24/20 15:30 08/01/20 04:17 Multi-Ingredient Ointment (Analgesic [place]) 1 radha PRN QID PRN TP MUSCLE PAIN 07/24/20 15:30 Al Hydroxide/Mg Hydroxide (Mylanta Plus Xs) 15 ml PRN AFTMEALHC PRN PO DYSPEPSIA 07/24/20 15:30 Magnesium Hydroxide (Milk Of Magnesia) 2,400 mg PRN QHS PRN PO CONSTIPATION 07/24/20 15:30 Nicotine (Nicoderm Cq 7mg Patch) 1 patch DAILY TD 07/25/20 09:00 07/25/20 00:32 DC Nicotine Polacrilex (Nicorette Gum) 2 mg PRN Q1HR PRN BC SMOKING CESSATION 07/24/20 16:30 07/26/20 16:33 DC 07/26/20 15:15 Aspirin (Aspirin Chewable) 81 mg DAILYWBKFT PO 07/25/20 08:00 08/05/20 07:43 Levothyroxine Sodium (Synthroid) 100 mcg DAILY06 PO 07/25/20 06:00 08/05/20 05:12 Lisinopril (Prinivil) 20 mg DAILY PO 07/25/20 09:00 08/05/20 07:43 Lorazepam (Ativan) 1 mg PRN Q4HRS PRN PO ANXIETY / AGITATION 07/24/20 17:00 07/31/20 05:49 Lorazepam (Ativan) 1.5 mg QHS PO 07/24/20 21:00 07/29/20 18:41 DC 07/28/20 19:39 Fluoxetine HCl (PROzac) 20 mg DAILY PO 07/25/20 09:00 07/30/20 18:04 DC 07/30/20 09:56 Risperidone (RisperDAL) 1.5 mg BID PO 07/24/20 21:00 07/29/20 18:41 DC 07/29/20 08:04 Quetiapine Fumarate (SEROquel) 800 mg QHS PO 07/24/20 21:00 08/05/20 20:34 Calcium Carbonate/ Glycine (Tums) 1,000 mg PRN Q8HRS PRN PO INDIGESTION 07/24/20 17:00 07/28/20 21:48 Divalproex Sodium (Depakote Er) 500 mg QHS PO 07/25/20 21:00 07/29/20 18:41 DC 07/28/20 19:38 Polyethylene Glycol (miraLAX) 17 gm DAILY PO 07/26/20 09:00 08/05/20 07:44 Ibuprofen (Motrin) 600 mg PRN Q6HRS PRN PO INFLAMMATION 07/25/20 15:45 08/02/20 04:37 Nicotine (Nicoderm Cq 7mg Patch) 1 patch DAILY TD 07/26/20 18:15 08/05/20 07:44 Ketoconazole (Nizoral 2% Shampoo) 1 radha PRN DAILY PRN TP SEE COMMENTS 07/28/20 14:15 Amlodipine Besylate (Norvasc) 5 mg 1X ONCE PO 07/29/20 18:00 07/29/20 18:01 DC 07/29/20 17:54 Amlodipine Besylate (Norvasc) 5 mg DAILY PO 07/30/20 09:00 08/05/20 07:44 Divalproex Sodium (Depakote Er) 1,000 mg QHS PO 07/29/20 21:00 08/01/20 18:08 DC 07/31/20 20:54 Risperidone (RisperDAL) 2 mg BID PO 07/29/20 21:00 08/05/20 20:33 Clonazepam (KlonoPIN) 1 mg HS PO 07/29/20 21:00 08/05/20 20:35 Clonazepam (KlonoPIN) 0.5 mg 0900,1300 PO 07/30/20 09:00 08/05/20 14:17 Trazodone HCl (Desyrel) 100 mg QHS PO 07/30/20 21:00 07/31/20 17:18 DC 07/30/20 19:58 Trazodone HCl (Desyrel) 100 mg PRN QHS PRN PO INSOMNIA 07/30/20 23:15 07/30/20 23:17 Trazodone HCl (Desyrel) 200 mg QHS PO 07/31/20 21:00 08/05/20 17:13 DC 08/04/20 21:22 Trazodone HCl (Desyrel) 25 mg TID@0900,1300,1700 PO 08/01/20 09:00 08/05/20 17:13 DC 08/04/20 17:39 Trazodone HCl (Desyrel) 50 mg 1X ONCE PO 07/31/20 17:15 07/31/20 17:32 DC 07/31/20 17:15 Mirtazapine (Remeron) 7.5 mg QHS PO 07/31/20 21:00 08/04/20 17:26 DC 08/03/20 20:33 Divalproex Sodium (Depakote Er) 1,500 mg QHS PO 08/01/20 21:00 08/05/20 20:33 Benztropine Mesylate (Cogentin) 0.5 mg HS PO 08/03/20 21:00 08/04/20 17:26 DC 08/03/20 20:35 Benztropine Mesylate (Cogentin) 1 mg HS PO 08/04/20 21:00 08/05/20 20:34 Mirtazapine (Remeron) 15 mg QHS PO 08/04/20 21:00 08/05/20 20:34 Trazodone HCl (Desyrel) 200 mg PRN QHS PRN PO Sleep 08/05/20 20:00 08/05/20 20:34 Current Medications Medications (Trade) Dose Ordered Sig/Luciana Route PRN Reason Start Time Stop Time Status Last Admin Dose Admin Trazodone HCl (Desyrel) 200 mg PRN QHS PRN PO Sleep 08/05/20 20:00 08/05/20 20:34 I have reviewed the current psychotropics carefully including drug interactions. Risk benefit ratio favors no change other than as noted in my dictated progress note. Diagnosis: Problems: (1) Schizoaffective disorder, bipolar type (2) Impulse control disorder, unspecified (3) Anxiety disorder, unspecified (4) Bipolar I disorder, current or most recent episode manic, with psychotic features with mixed features ELIDIA VELA MD Aug 05, 2020 21:05
--- NOTE | 2020-08-05 23:33 | NUR ---
Pt located in the dayroom this evening. Pt calm and interactive with peers. Compliant with whole medications. Pt appears drowsy and is shuffling his feet when ambulating. Once in bed, pt placed himself on the floor and removed his brief x2, stating that he cannot get up because his legs don't work.
[2020-08-06] MEDS: LEVOTHYROXINE 100 MCG TABLET PO SCH (05:09)
[2020-08-06 06:16] VITALS: BP 102/61
[2020-08-06] MEDS: ASPIRIN CHEWABLE 81 MG TABLET. PO SCH (08:05)
[2020-08-06] MEDS: risperiDONE 2 MG TABLET. PO SCH ×2 (08:05→20:41)
[2020-08-06] MEDS: clonazePAM 0.5 MG TABLET PO SCH ×2 (08:05→13:00)
[2020-08-06] MEDS: amLODIPine BESYLATE 5 MG TABLET PO SCH (08:05)
[2020-08-06] MEDS: POLYETHYLENE GLYCOL 3350 17 GM PACKET. PO SCH (08:06)
[2020-08-06] MEDS: LISINOPRIL 20 MG TABLET PO SCH (08:06)
[2020-08-06] MEDS: NICOTINE 7MG PATCH. TD SCH (08:10)
--- NOTE | 2020-08-06 08:39 | PDOC ---
Exam Note: David Note: This note is a late entry for 08/05/2020 covers elements not covered in my initial note. Subjective: The patient was seen face to face in the evening of 08/05/2020 with Sindi MARSHALL. Discussed with nursing staff, reviewed the chart. He slept 4 hours previous night. The patient has been withdrawn, somewhat tired at times. Review of Systems: He complains of redness in the left eye. No CV, , pulmonary, eye, ENT system symptoms on review. Mental Status Exam: The patient is oriented reasonably. Speech is coherent, less pressured. Abstraction is fair. Computation is impaired. Language function is intact. Mood and affect less grandiose. No suicidal or homicidal ideation. Laboratory Data: Reviewed. Impression: Bipolar 1 disorder manic with psychotic features. Anxiety disorder unspecified. Impulse control disorder unspecified. Plan: The patient has been somewhat sedated during the day. We will stop the trazodone 25 mg t.i.d. Change the trazodone 200 mg h.s. to 200 mg h.s. p.r.n. Continue rest of the psychotropics unchanged including Depakote with valproic acid level therapeutic at 57. Assessment: Vital Signs/I&O: Vital Signs Date Time Temp Pulse Resp B/P (MAP) Pulse Ox O2 Delivery O2 Flow Rate FiO2 08/06/20 08:06 67 102/61 08/06/20 06:16 96.9 18 93 Room Air I & O 08/05/20 08/05/20 08/06/20 15:00 23:00 07:00 Intake Total 960 ml 600 ml Balance 960 ml 600 ml Current Medications: Meds: Current Medications Medications (Trade) Dose Ordered Sig/Luciana Route PRN Reason Start Time Stop Time Status Last Admin Dose Admin Acetaminophen (Tylenol) 650 mg PRN Q6HRS PRN PO MILD PAIN / TEMP > 100.3'F 07/24/20 15:30 08/01/20 04:17 Multi-Ingredient Ointment (Analgesic [place]) 1 radha PRN QID PRN TP MUSCLE PAIN 07/24/20 15:30 Al Hydroxide/Mg Hydroxide (Mylanta Plus Xs) 15 ml PRN AFTMEALHC PRN PO DYSPEPSIA 07/24/20 15:30 Magnesium Hydroxide (Milk Of Magnesia) 2,400 mg PRN QHS PRN PO CONSTIPATION 07/24/20 15:30 Nicotine (Nicoderm Cq 7mg Patch) 1 patch DAILY TD 07/25/20 09:00 07/25/20 00:32 DC Nicotine Polacrilex (Nicorette Gum) 2 mg PRN Q1HR PRN BC SMOKING CESSATION 07/24/20 16:30 07/26/20 16:33 DC 07/26/20 15:15 Aspirin (Aspirin Chewable) 81 mg DAILYWBKFT PO 07/25/20 08:00 08/06/20 08:05 Levothyroxine Sodium (Synthroid) 100 mcg DAILY06 PO 07/25/20 06:00 08/06/20 05:09 Lisinopril (Prinivil) 20 mg DAILY PO 07/25/20 09:00 08/06/20 08:06 Lorazepam (Ativan) 1 mg PRN Q4HRS PRN PO ANXIETY / AGITATION 07/24/20 17:00 07/31/20 05:49 Lorazepam (Ativan) 1.5 mg QHS PO 07/24/20 21:00 07/29/20 18:41 DC 07/28/20 19:39 Fluoxetine HCl (PROzac) 20 mg DAILY PO 07/25/20 09:00 07/30/20 18:04 DC 07/30/20 09:56 Risperidone (RisperDAL) 1.5 mg BID PO 07/24/20 21:00 07/29/20 18:41 DC 07/29/20 08:04 Quetiapine Fumarate (SEROquel) 800 mg QHS PO 07/24/20 21:00 08/05/20 20:34 Calcium Carbonate/ Glycine (Tums) 1,000 mg PRN Q8HRS PRN PO INDIGESTION 07/24/20 17:00 07/28/20 21:48 Divalproex Sodium (Depakote Er) 500 mg QHS PO 07/25/20 21:00 07/29/20 18:41 DC 07/28/20 19:38 Polyethylene Glycol (miraLAX) 17 gm DAILY PO 07/26/20 09:00 08/06/20 08:06 Ibuprofen (Motrin) 600 mg PRN Q6HRS PRN PO INFLAMMATION 07/25/20 15:45 08/02/20 04:37 Nicotine (Nicoderm Cq 7mg Patch) 1 patch DAILY TD 07/26/20 18:15 08/06/20 08:10 Ketoconazole (Nizoral 2% Shampoo) 1 radha PRN DAILY PRN TP SEE COMMENTS 07/28/20 14:15 Amlodipine Besylate (Norvasc) 5 mg 1X ONCE PO 07/29/20 18:00 07/29/20 18:01 DC 07/29/20 17:54 Amlodipine Besylate (Norvasc) 5 mg DAILY PO 07/30/20 09:00 08/06/20 08:05 Divalproex Sodium (Depakote Er) 1,000 mg QHS PO 07/29/20 21:00 08/01/20 18:08 DC 07/31/20 20:54 Risperidone (RisperDAL) 2 mg BID PO 07/29/20 21:00 08/06/20 08:05 Clonazepam (KlonoPIN) 1 mg HS PO 07/29/20 21:00 08/05/20 20:35 Clonazepam (KlonoPIN) 0.5 mg 0900,1300 PO 07/30/20 09:00 08/06/20 08:05 Trazodone HCl (Desyrel) 100 mg QHS PO 07/30/20 21:00 07/31/20 17:18 DC 07/30/20 19:58 Trazodone HCl (Desyrel) 100 mg PRN QHS PRN PO INSOMNIA 07/30/20 23:15 07/30/20 23:17 Trazodone HCl (Desyrel) 200 mg QHS PO 07/31/20 21:00 08/05/20 17:13 DC 08/04/20 21:22 Trazodone HCl (Desyrel) 25 mg TID@0900,1300,1700 PO 08/01/20 09:00 08/05/20 17:13 DC 08/04/20 17:39 Trazodone HCl (Desyrel) 50 mg 1X ONCE PO 07/31/20 17:15 07/31/20 17:32 DC 07/31/20 17:15 Mirtazapine (Remeron) 7.5 mg QHS PO 07/31/20 21:00 08/04/20 17:26 DC 08/03/20 20:33 Divalproex Sodium (Depakote Er) 1,500 mg QHS PO 08/01/20 21:00 08/05/20 20:33 Benztropine Mesylate (Cogentin) 0.5 mg HS PO 08/03/20 21:00 08/04/20 17:26 DC 08/03/20 20:35 Benztropine Mesylate (Cogentin) 1 mg HS PO 08/04/20 21:00 08/05/20 20:34 Mirtazapine (Remeron) 15 mg QHS PO 08/04/20 21:00 08/05/20 20:34 Trazodone HCl (Desyrel) 200 mg PRN QHS PRN PO Sleep 08/05/20 20:00 08/05/20 20:34 Current Medications Medications (Trade) Dose Ordered Sig/Luciana Route PRN Reason Start Time Stop Time Status Last Admin Dose Admin Trazodone HCl (Desyrel) 200 mg PRN QHS PRN PO Sleep 08/05/20 20:00 08/05/20 20:34 I have reviewed the current psychotropics carefully including drug interactions. Risk benefit ratio favors no change other than as noted in my dictated progress note. Diagnosis: Problems: (1) Schizoaffective disorder, bipolar type (2) Impulse control disorder, unspecified (3) Anxiety disorder, unspecified (4) Bipolar I disorder, current or most recent episode manic, with psychotic features with mixed features ELIDIA VELA MD Aug 06, 2020 08:39
--- NOTE | 2020-08-06 12:47 | NUR ---
Patient sitting in chair eating breakfast at time of assessment. Patient has no complaints and is alert and oriented. Patient is more drowsy today that usual. There were some medication adjustments. Through the morning patient was very drowsy and shuffling around the floor. Patient is not walking as he was a couple of days ago. He seems to be drooling some as well. I will talk to the doctor to see if he would like to adjust anything at this time due to the behaviors and what patient is presenting.
--- NOTE | 2020-08-06 12:49 | NUR ---
Spoke to Dr Dent regarding patient eye irritation. We will start on Cortisporin Opthalmic solution 2 drops BID both eyes today. Order placed and will wait for pharmacy to contact us to start.
--- NOTE | 2020-08-06 15:02 | NUR ---
Patient was walking around drooling and has his eyes closed very sedated. Clonazepam was held and not given to patient.
[2020-08-06 16:31] VITALS: BP 124/81
[2020-08-06] MEDS: DIVALPROEX ER 500 MG TAB.ER.24H PO SCH (20:40)
[2020-08-06] MEDS: BENZTROPINE MESYLATE 0.5 MG TABLET PO SCH (20:40)
[2020-08-06] MEDS: QUEtiapine 100 MG TABLET. PO SCH (20:41)
[2020-08-06] MEDS: clonazePAM 1 MG TABLET PO SCH (20:41)
[2020-08-06] MEDS: MIRTAZAPINE 15 MG TABLET PO SCH (20:41)
[2020-08-06] MEDS: NEOMYCIN/BACI/POLY/HC OPHTH OINTMENT 3.5GM TUBE. OU SCH (20:46)
--- NOTE | 2020-08-06 21:15 | NUR ---
Patient is in bed, soundly asleep. Nurse will hold HS medications for now and give when/if he wakes up during the night.
--- NOTE | 2020-08-06 21:35 | PDOC ---
Exam Note: David Note: Please also refer to the separate dictated note~for this date of service dictated separately.~Patient seen individually. Discussed the patient with Nursing staff reviewed the chart.~Reviewed interim history and current functioning. Reviewed vital signs,~Labs/ Radiology~and current medications noted below. Continue current treatment with the changes noted in the dictated addendum note Assessment: Vital Signs/I&O: Vital Signs Date Time Temp Pulse Resp B/P (MAP) Pulse Ox O2 Delivery O2 Flow Rate FiO2 08/06/20 16:31 98.6 76 18 124/81 (95) 98 Room Air I & O 08/05/20 08/05/20 08/06/20 15:00 23:00 07:00 Intake Total 960 ml 600 ml Balance 960 ml 600 ml Current Medications: Meds: Current Medications Medications (Trade) Dose Ordered Sig/Luciana Route PRN Reason Start Time Stop Time Status Last Admin Dose Admin Acetaminophen (Tylenol) 650 mg PRN Q6HRS PRN PO MILD PAIN / TEMP > 100.3'F 07/24/20 15:30 08/01/20 04:17 Multi-Ingredient Ointment (Analgesic [place]) 1 radha PRN QID PRN TP MUSCLE PAIN 07/24/20 15:30 Al Hydroxide/Mg Hydroxide (Mylanta Plus Xs) 15 ml PRN AFTMEALHC PRN PO DYSPEPSIA 07/24/20 15:30 Magnesium Hydroxide (Milk Of Magnesia) 2,400 mg PRN QHS PRN PO CONSTIPATION 07/24/20 15:30 Nicotine (Nicoderm Cq 7mg Patch) 1 patch DAILY TD 07/25/20 09:00 07/25/20 00:32 DC Nicotine Polacrilex (Nicorette Gum) 2 mg PRN Q1HR PRN BC SMOKING CESSATION 07/24/20 16:30 07/26/20 16:33 DC 07/26/20 15:15 Aspirin (Aspirin Chewable) 81 mg DAILYWBKFT PO 07/25/20 08:00 08/06/20 08:05 Levothyroxine Sodium (Synthroid) 100 mcg DAILY06 PO 07/25/20 06:00 08/06/20 05:09 Lisinopril (Prinivil) 20 mg DAILY PO 07/25/20 09:00 08/06/20 08:06 Lorazepam (Ativan) 1 mg PRN Q4HRS PRN PO ANXIETY / AGITATION 07/24/20 17:00 07/31/20 05:49 Lorazepam (Ativan) 1.5 mg QHS PO 07/24/20 21:00 07/29/20 18:41 DC 07/28/20 19:39 Fluoxetine HCl (PROzac) 20 mg DAILY PO 07/25/20 09:00 07/30/20 18:04 DC 07/30/20 09:56 Risperidone (RisperDAL) 1.5 mg BID PO 07/24/20 21:00 07/29/20 18:41 DC 07/29/20 08:04 Quetiapine Fumarate (SEROquel) 800 mg QHS PO 07/24/20 21:00 08/06/20 20:41 Calcium Carbonate/ Glycine (Tums) 1,000 mg PRN Q8HRS PRN PO INDIGESTION 07/24/20 17:00 07/28/20 21:48 Divalproex Sodium (Depakote Er) 500 mg QHS PO 07/25/20 21:00 07/29/20 18:41 DC 07/28/20 19:38 Polyethylene Glycol (miraLAX) 17 gm DAILY PO 07/26/20 09:00 08/06/20 08:06 Ibuprofen (Motrin) 600 mg PRN Q6HRS PRN PO INFLAMMATION 07/25/20 15:45 08/02/20 04:37 Nicotine (Nicoderm Cq 7mg Patch) 1 patch DAILY TD 07/26/20 18:15 08/06/20 08:10 Ketoconazole (Nizoral 2% Shampoo) 1 radha PRN DAILY PRN TP SEE COMMENTS 07/28/20 14:15 Amlodipine Besylate (Norvasc) 5 mg 1X ONCE PO 07/29/20 18:00 07/29/20 18:01 DC 07/29/20 17:54 Amlodipine Besylate (Norvasc) 5 mg DAILY PO 07/30/20 09:00 08/06/20 08:05 Divalproex Sodium (Depakote Er) 1,000 mg QHS PO 07/29/20 21:00 08/01/20 18:08 DC 07/31/20 20:54 Risperidone (RisperDAL) 2 mg BID PO 07/29/20 21:00 08/06/20 20:41 Clonazepam (KlonoPIN) 1 mg HS PO 07/29/20 21:00 08/11/20 21:00 08/06/20 20:41 Clonazepam (KlonoPIN) 0.5 mg 0900,1300 PO 07/30/20 09:00 08/06/20 18:16 DC 08/06/20 08:05 Trazodone HCl (Desyrel) 100 mg QHS PO 07/30/20 21:00 07/31/20 17:18 DC 07/30/20 19:58 Trazodone HCl (Desyrel) 100 mg PRN QHS PRN PO INSOMNIA 07/30/20 23:15 07/30/20 23:17 Trazodone HCl (Desyrel) 200 mg QHS PO 07/31/20 21:00 08/05/20 17:13 DC 08/04/20 21:22 Trazodone HCl (Desyrel) 25 mg TID@0900,1300,1700 PO 08/01/20 09:00 08/05/20 17:13 DC 08/04/20 17:39 Trazodone HCl (Desyrel) 50 mg 1X ONCE PO 07/31/20 17:15 07/31/20 17:32 DC 07/31/20 17:15 Mirtazapine (Remeron) 7.5 mg QHS PO 07/31/20 21:00 08/04/20 17:26 DC 08/03/20 20:33 Divalproex Sodium (Depakote Er) 1,500 mg QHS PO 08/01/20 21:00 08/06/20 20:40 Benztropine Mesylate (Cogentin) 0.5 mg HS PO 08/03/20 21:00 08/04/20 17:26 DC 08/03/20 20:35 Benztropine Mesylate (Cogentin) 1 mg HS PO 08/04/20 21:00 08/06/20 20:40 Mirtazapine (Remeron) 15 mg QHS PO 08/04/20 21:00 08/06/20 20:41 Trazodone HCl (Desyrel) 200 mg PRN QHS PRN PO Sleep 1/25/21 20:00 08/05/20 20:34 Neomycin/ Polymyxin/Bacitr/ Hydrocort (Cortisporin Ophth) 2 radha BID OU 08/06/20 21:00 Clonazepam (KlonoPIN) 0.5 mg 1300 PO 08/07/20 13:00 08/09/20 13:00 I have reviewed the current psychotropics carefully including drug interactions. Risk benefit ratio favors no change other than as noted in my dictated progress note. Diagnosis: Problems: (1) Schizoaffective disorder, bipolar type (2) Impulse control disorder, unspecified (3) Anxiety disorder, unspecified (4) Bipolar I disorder, current or most recent episode manic, with psychotic features with mixed features ELIDIA VELA MD Aug 06, 2020 21:35
--- NOTE | 2020-08-06 22:12 | NUR ---
Patient awake, using bathroom. HS medications given at this time. Patient states he "feels better than earlier today".
--- NOTE | 2020-08-07 00:21 | NUR ---
Patient urinated on the floor in his room stating he "couldn't make it to the bathroom". It appears that patient has been intentionally trying to stay awake since taking his HS medications. When asked this question he did not answer. About an hour later, staff called nurse to patients room. He was observed laying on the floor naked and he was awake. When nurse asked him what he is doing, he stated he is "on the way to the bathroom". Patient did not fall, he "slid" off the bed according to his self report because he needed to get to the bathroom. Patient is capable of dressing himself and of ambulating to the bathroom. Nurse encouraged patient to get up off floor, put his clothes on and either return to bed or go to the bathroom. Nurse will pass on in report and to Dr Mason that patient is not sleeping and his medications are possibly causing him to have increased behaviors.
[2020-08-07] MEDS: LEVOTHYROXINE 100 MCG TABLET PO SCH (04:52)
[2020-08-07] MEDS: CALCIUM CARBONATE 500 MG TAB.CHEW PO PRN (04:52)
--- NOTE | 2020-08-07 04:53 | NUR ---
Patient came to nurses station and asked for Tums, stating that his stomach was upset. . PRN tums administered for dyspepsia.
--- NOTE | 2020-08-07 05:43 | NUR ---
Patient swabbed for weekly COVID 19 test.
[2020-08-07 06:09] VITALS: BP 120/83
[2020-08-07] MEDS: POLYETHYLENE GLYCOL 3350 17 GM PACKET. PO SCH (08:28)
[2020-08-07] MEDS: NEOMYCIN/BACI/POLY/HC OPHTH OINTMENT 3.5GM TUBE. OU SCH ×2 (08:28→21:00)
[2020-08-07] MEDS: ASPIRIN CHEWABLE 81 MG TABLET. PO SCH (08:28)
[2020-08-07] MEDS: NICOTINE 7MG PATCH. TD SCH (08:28)
[2020-08-07] MEDS: risperiDONE 2 MG TABLET. PO SCH ×2 (08:29→21:00)
[2020-08-07] MEDS: LISINOPRIL 20 MG TABLET PO SCH (08:29)
[2020-08-07] MEDS: amLODIPine BESYLATE 5 MG TABLET PO SCH (08:29)
--- NOTE | 2020-08-07 11:05 | NUR ---
Nursing note: Pt in his room for AM med pass and assessment. He was pleasant, med compliant and cooperative. Pt had been observed having a shuffling gait when he walked, but shortly after he switched back to his regular and steady gait. Pt has no complaints this morning. He requested to listen to classic rock on the [place]. Music was provided to pt. He is currently resting quietly in his room. Will continue to monitor.
[2020-08-07] MEDS: clonazePAM 0.5 MG TABLET PO SCH (12:33)
[2020-08-07 17:56] VITALS: BP 110/77
--- NOTE | 2020-08-07 20:59 | PDOC ---
Exam Note: David Note: Please also refer to the separate dictated note~for this date of service dictated separately.~Patient seen individually. Discussed the patient with Nursing staff reviewed the chart.~Reviewed interim history and current functioning. Reviewed vital signs,~Labs/ Radiology~and current medications noted below. Continue current treatment with the changes noted in the dictated addendum note Assessment: Vital Signs/I&O: Vital Signs Date Time Temp Pulse Resp B/P (MAP) Pulse Ox O2 Delivery O2 Flow Rate FiO2 08/07/20 17:56 98.8 70 18 110/77 (88) 97 08/07/20 06:09 Room Air I & O 08/06/20 08/06/20 08/07/20 15:00 23:00 07:00 Intake Total 980 ml 600 ml Balance 980 ml 600 ml Current Medications: Meds: Current Medications Medications (Trade) Dose Ordered Sig/Luciana Route PRN Reason Start Time Stop Time Status Last Admin Dose Admin Acetaminophen (Tylenol) 650 mg PRN Q6HRS PRN PO MILD PAIN / TEMP > 100.3'F 07/24/20 15:30 08/01/20 04:17 Multi-Ingredient Ointment (Analgesic [place]) 1 radha PRN QID PRN TP MUSCLE PAIN 07/24/20 15:30 Al Hydroxide/Mg Hydroxide (Mylanta Plus Xs) 15 ml PRN AFTMEALHC PRN PO DYSPEPSIA 07/24/20 15:30 Magnesium Hydroxide (Milk Of Magnesia) 2,400 mg PRN QHS PRN PO CONSTIPATION 07/24/20 15:30 Nicotine (Nicoderm Cq 7mg Patch) 1 patch DAILY TD 07/25/20 09:00 07/25/20 00:32 DC Nicotine Polacrilex (Nicorette Gum) 2 mg PRN Q1HR PRN BC SMOKING CESSATION 07/24/20 16:30 07/26/20 16:33 DC 07/26/20 15:15 Aspirin (Aspirin Chewable) 81 mg DAILYWBKFT PO 07/25/20 08:00 08/07/20 08:28 Levothyroxine Sodium (Synthroid) 100 mcg DAILY06 PO 07/25/20 06:00 08/07/20 04:52 Lisinopril (Prinivil) 20 mg DAILY PO 07/25/20 09:00 08/07/20 08:29 Lorazepam (Ativan) 1 mg PRN Q4HRS PRN PO ANXIETY / AGITATION 07/24/20 17:00 07/31/20 05:49 Lorazepam (Ativan) 1.5 mg QHS PO 07/24/20 21:00 07/29/20 18:41 DC 07/28/20 19:39 Fluoxetine HCl (PROzac) 20 mg DAILY PO 07/25/20 09:00 07/30/20 18:04 DC 07/30/20 09:56 Risperidone (RisperDAL) 1.5 mg BID PO 07/24/20 21:00 07/29/20 18:41 DC 07/29/20 08:04 Quetiapine Fumarate (SEROquel) 800 mg QHS PO 07/24/20 21:00 08/06/20 20:41 Calcium Carbonate/ Glycine (Tums) 1,000 mg PRN Q8HRS PRN PO INDIGESTION 07/24/20 17:00 08/07/20 04:52 Divalproex Sodium (Depakote Er) 500 mg QHS PO 07/25/20 21:00 07/29/20 18:41 DC 07/28/20 19:38 Polyethylene Glycol (miraLAX) 17 gm DAILY PO 07/26/20 09:00 08/07/20 08:28 Ibuprofen (Motrin) 600 mg PRN Q6HRS PRN PO INFLAMMATION 07/25/20 15:45 08/02/20 04:37 Nicotine (Nicoderm Cq 7mg Patch) 1 patch DAILY TD 07/26/20 18:15 08/07/20 08:28 Ketoconazole (Nizoral 2% Shampoo) 1 radha PRN DAILY PRN TP SEE COMMENTS 07/28/20 14:15 Amlodipine Besylate (Norvasc) 5 mg 1X ONCE PO 07/29/20 18:00 07/29/20 18:01 DC 07/29/20 17:54 Amlodipine Besylate (Norvasc) 5 mg DAILY PO 07/30/20 09:00 08/07/20 08:29 Divalproex Sodium (Depakote Er) 1,000 mg QHS PO 07/29/20 21:00 08/01/20 18:08 DC 07/31/20 20:54 Risperidone (RisperDAL) 2 mg BID PO 07/29/20 21:00 08/07/20 08:29 Clonazepam (KlonoPIN) 1 mg HS PO 07/29/20 21:00 08/11/20 21:00 08/06/20 20:41 Clonazepam (KlonoPIN) 0.5 mg 0900,1300 PO 07/30/20 09:00 08/06/20 18:16 DC 08/06/20 08:05 Trazodone HCl (Desyrel) 100 mg QHS PO 07/30/20 21:00 07/31/20 17:18 DC 07/30/20 19:58 Trazodone HCl (Desyrel) 100 mg PRN QHS PRN PO INSOMNIA 07/30/20 23:15 07/30/20 23:17 Trazodone HCl (Desyrel) 200 mg QHS PO 07/31/20 21:00 08/05/20 17:13 DC 08/04/20 21:22 Trazodone HCl (Desyrel) 25 mg TID@0900,1300,1700 PO 08/01/20 09:00 08/05/20 17:13 DC 08/04/20 17:39 Trazodone HCl (Desyrel) 50 mg 1X ONCE PO 07/31/20 17:15 07/31/20 17:32 DC 07/31/20 17:15 Mirtazapine (Remeron) 7.5 mg QHS PO 07/31/20 21:00 08/04/20 17:26 DC 08/03/20 20:33 Divalproex Sodium (Depakote Er) 1,500 mg QHS PO 08/01/20 21:00 08/06/20 20:40 Benztropine Mesylate (Cogentin) 0.5 mg HS PO 08/03/20 21:00 08/04/20 17:26 DC 08/03/20 20:35 Benztropine Mesylate (Cogentin) 1 mg HS PO 08/04/20 21:00 08/06/20 20:40 Mirtazapine (Remeron) 15 mg QHS PO 08/04/20 21:00 08/06/20 20:41 Trazodone HCl (Desyrel) 200 mg PRN QHS PRN PO Sleep 08/05/20 20:00 08/05/20 20:34 Neomycin/ Polymyxin/Bacitr/ Hydrocort (Cortisporin Ophth) 2 radha BID OU 08/06/20 21:00 08/07/20 08:28 Clonazepam (KlonoPIN) 0.5 mg 1300 PO 08/07/20 13:00 08/09/20 13:00 08/07/20 12:33 Current Medications Medications (Trade) Dose Ordered Sig/Luciana Route PRN Reason Start Time Stop Time Status Last Admin Dose Admin Neomycin/ Polymyxin/Bacitr/ Hydrocort (Cortisporin Ophth) 2 radha BID OU 08/06/20 21:00 08/07/20 08:28 Clonazepam (KlonoPIN) 0.5 mg 1300 PO 08/07/20 13:00 08/09/20 13:00 08/07/20 12:33 I have reviewed the current psychotropics carefully including drug interactions. Risk benefit ratio favors no change other than as noted in my dictated progress note. Diagnosis: Problems: (1) Schizoaffective disorder, bipolar type (2) Impulse control disorder, unspecified (3) Anxiety disorder, unspecified (4) Bipolar I disorder, current or most recent episode manic, with psychotic features with mixed features ELIDIA VELA MD Aug 07, 2020 20:59
[2020-08-07] MEDS: BENZTROPINE MESYLATE 0.5 MG TABLET PO SCH (21:00)
[2020-08-07] MEDS: QUEtiapine 100 MG TABLET. PO SCH (21:00)
[2020-08-07] MEDS: DIVALPROEX ER 500 MG TAB.ER.24H PO SCH (21:00)
[2020-08-07] MEDS: MIRTAZAPINE 15 MG TABLET PO SCH (21:00)
[2020-08-07] MEDS: clonazePAM 1 MG TABLET PO SCH (21:01)
--- NOTE | 2020-08-07 23:26 | NUR ---
Pt found on floor at 2255 by DENTAL SURGERY DOCTOR lying on his right side (did not hit his head per pt report). pt able to pull himself to chair. Pt stated he was attempting to ambulate to bathroom. VSS s/p fall, no c/o of pain, no bruising or redness found on patient. s/p fall pt in bed, bed alarm placed, side rales up, physician notified.
[2020-08-07 23:33] VITALS: BP 121/76
[2020-08-08] MEDS: LEVOTHYROXINE 100 MCG TABLET PO SCH (05:45)
[2020-08-08 06:28] VITALS: BP 133/78
[2020-08-08] MEDS: POLYETHYLENE GLYCOL 3350 17 GM PACKET. PO SCH (07:29)
[2020-08-08] MEDS: ASPIRIN CHEWABLE 81 MG TABLET. PO SCH (07:29)
[2020-08-08] MEDS: NEOMYCIN/BACI/POLY/HC OPHTH OINTMENT 3.5GM TUBE. OU SCH ×2 (07:29→20:17)
[2020-08-08] MEDS: amLODIPine BESYLATE 5 MG TABLET PO SCH (07:30)
[2020-08-08] MEDS: LISINOPRIL 20 MG TABLET PO SCH (07:30)
[2020-08-08] MEDS: risperiDONE 2 MG TABLET. PO SCH ×2 (07:30→20:18)
[2020-08-08] MEDS: NICOTINE 7MG PATCH. TD SCH (07:30)
[2020-08-08] MEDS: IBUPROFEN 600 MG TABLET. PO PRN (07:32)
--- NOTE | 2020-08-08 09:09 | PDOC ---
Exam Note: David Note: This note is a late entry for 08/06/2020 covers elements not covered in my initial note. Subjective: The patient was seen face to face in the evening of 08/06/2020 with Lee Ann MARSHALL. Discussed with nursing staff, reviewed the chart. He slept 3 hours previous night. Overall the patient is being sedated during the day. At times gait is somewhat unsteady. He has had some shuffling gait but he is on Cogentin 1 mg h.s. to assist with this since this is secondary to extrapyramidal side effects, probably exacerbated by atypical antipsychotics. Additionally, we are tapering the Klonopin. Review of Systems: No CV, , pulmonary, eye, ENT system symptoms on review. Mental Status Exam: The patient is oriented reasonably. Speech has some latency coherent. Abstraction is fair. Computation is impaired. Language function is intact. Attention span is fair. Mood and affect somewhat withdrawn. Laboratory Data: Reviewed. Impression: Bipolar 1 disorder manic with psychotic features. Anxiety disorder unspecified. Impulse control disorder unspecified. Plan: We will go ahead and taper and stop the Klonopin, slowly. Continue rest of the psychotropics. We may consider reducing Seroquel but the patient prefers not to. Maintain Depakote at current dosage, level therapeutic. Rest unchanged for now. Assessment: Vital Signs/I&O: Vital Signs Date Time Temp Pulse Resp B/P (MAP) Pulse Ox O2 Delivery O2 Flow Rate FiO2 08/08/20 07:30 85 133/78 08/08/20 06:28 97.7 18 95 Room Air I & O 08/07/20 08/07/20 08/08/20 15:00 23:00 07:00 Intake Total 760 ml 600 ml 480 ml Balance 760 ml 600 ml 480 ml Current Medications: Meds: Current Medications Medications (Trade) Dose Ordered Sig/Luciana Route PRN Reason Start Time Stop Time Status Last Admin Dose Admin Acetaminophen (Tylenol) 650 mg PRN Q6HRS PRN PO MILD PAIN / TEMP > 100.3'F 07/24/20 15:30 08/01/20 04:17 Multi-Ingredient Ointment (Analgesic [place]) 1 radha PRN QID PRN TP MUSCLE PAIN 07/24/20 15:30 Al Hydroxide/Mg Hydroxide (Mylanta Plus Xs) 15 ml PRN AFTMEALHC PRN PO DYSPEPSIA 07/24/20 15:30 Magnesium Hydroxide (Milk Of Magnesia) 2,400 mg PRN QHS PRN PO CONSTIPATION 07/24/20 15:30 Nicotine (Nicoderm Cq 7mg Patch) 1 patch DAILY TD 07/25/20 09:00 07/25/20 00:32 DC Nicotine Polacrilex (Nicorette Gum) 2 mg PRN Q1HR PRN BC SMOKING CESSATION 07/24/20 16:30 07/26/20 16:33 DC 07/26/20 15:15 Aspirin (Aspirin Chewable) 81 mg DAILYWBKFT PO 07/25/20 08:00 08/08/20 07:29 Levothyroxine Sodium (Synthroid) 100 mcg DAILY06 PO 07/25/20 06:00 08/08/20 05:45 Lisinopril (Prinivil) 20 mg DAILY PO 07/25/20 09:00 08/08/20 07:30 Lorazepam (Ativan) 1 mg PRN Q4HRS PRN PO ANXIETY / AGITATION 07/24/20 17:00 07/31/20 05:49 Lorazepam (Ativan) 1.5 mg QHS PO 07/24/20 21:00 07/29/20 18:41 DC 07/28/20 19:39 Fluoxetine HCl (PROzac) 20 mg DAILY PO 07/25/20 09:00 07/30/20 18:04 DC 07/30/20 09:56 Risperidone (RisperDAL) 1.5 mg BID PO 07/24/20 21:00 07/29/20 18:41 DC 07/29/20 08:04 Quetiapine Fumarate (SEROquel) 800 mg QHS PO 07/24/20 21:00 08/07/20 21:00 Calcium Carbonate/ Glycine (Tums) 1,000 mg PRN Q8HRS PRN PO INDIGESTION 07/24/20 17:00 08/07/20 04:52 Divalproex Sodium (Depakote Er) 500 mg QHS PO 07/25/20 21:00 07/29/20 18:41 DC 07/28/20 19:38 Polyethylene Glycol (miraLAX) 17 gm DAILY PO 07/26/20 09:00 08/08/20 07:29 Ibuprofen (Motrin) 600 mg PRN Q6HRS PRN PO INFLAMMATION 07/25/20 15:45 08/08/20 07:32 Nicotine (Nicoderm Cq 7mg Patch) 1 patch DAILY TD 07/26/20 18:15 08/08/20 07:30 Ketoconazole (Nizoral 2% Shampoo) 1 radha PRN DAILY PRN TP SEE COMMENTS 07/28/20 14:15 Amlodipine Besylate (Norvasc) 5 mg 1X ONCE PO 07/29/20 18:00 07/29/20 18:01 DC 07/29/20 17:54 Amlodipine Besylate (Norvasc) 5 mg DAILY PO 07/30/20 09:00 08/08/20 07:30 Divalproex Sodium (Depakote Er) 1,000 mg QHS PO 07/29/20 21:00 08/01/20 18:08 DC 07/31/20 20:54 Risperidone (RisperDAL) 2 mg BID PO 07/29/20 21:00 08/08/20 07:30 Clonazepam (KlonoPIN) 1 mg HS PO 07/29/20 21:00 08/11/20 21:00 08/07/20 21:01 Clonazepam (KlonoPIN) 0.5 mg 0900,1300 PO 07/30/20 09:00 08/06/20 18:16 DC 08/06/20 08:05 Trazodone HCl (Desyrel) 100 mg QHS PO 07/30/20 21:00 07/31/20 17:18 DC 07/30/20 19:58 Trazodone HCl (Desyrel) 100 mg PRN QHS PRN PO INSOMNIA 07/30/20 23:15 07/30/20 23:17 Trazodone HCl (Desyrel) 200 mg QHS PO 07/31/20 21:00 08/05/20 17:13 DC 08/04/20 21:22 Trazodone HCl (Desyrel) 25 mg TID@0900,1300,1700 PO 08/01/20 09:00 08/05/20 17:13 DC 08/04/20 17:39 Trazodone HCl (Desyrel) 50 mg 1X ONCE PO 07/31/20 17:15 07/31/20 17:32 DC 07/31/20 17:15 Mirtazapine (Remeron) 7.5 mg QHS PO 07/31/20 21:00 08/04/20 17:26 DC 08/03/20 20:33 Divalproex Sodium (Depakote Er) 1,500 mg QHS PO 08/01/20 21:00 08/07/20 21:00 Benztropine Mesylate (Cogentin) 0.5 mg HS PO 08/03/20 21:00 08/04/20 17:26 DC 08/03/20 20:35 Benztropine Mesylate (Cogentin) 1 mg HS PO 08/04/20 21:00 08/07/20 21:00 Mirtazapine (Remeron) 15 mg QHS PO 08/04/20 21:00 08/07/20 21:00 Trazodone HCl (Desyrel) 200 mg PRN QHS PRN PO Sleep 08/05/20 20:00 08/05/20 20:34 Neomycin/ Polymyxin/Bacitr/ Hydrocort (Cortisporin Ophth) 2 radha BID OU 08/06/20 21:00 08/08/20 07:29 Clonazepam (KlonoPIN) 0.5 mg 1300 PO 08/07/20 13:00 08/09/20 13:00 08/07/20 12:33 Current Medications Medications (Trade) Dose Ordered Sig/Luciana Route PRN Reason Start Time Stop Time Status Last Admin Dose Admin Clonazepam (KlonoPIN) 0.5 mg 1300 PO 08/07/20 13:00 08/09/20 13:00 08/07/20 12:33 I have reviewed the current psychotropics carefully including drug interactions. Risk benefit ratio favors no change other than as noted in my dictated progress note. Diagnosis: Problems: (1) Schizoaffective disorder, bipolar type (2) Impulse control disorder, unspecified (3) Anxiety disorder, unspecified (4) Bipolar I disorder, current or most recent episode manic, with psychotic features with mixed features ELIDIA VELA MD Aug 08, 2020 09:09
--- NOTE | 2020-08-08 09:24 | PDOC ---
Exam Note: David Note: This note is a late entry for 08/07/2020 covers elements not covered in my initial note. Subjective: The patient was seen face to face in the evening of 08/07/2020 with Ivonne MARSHALL. Discussed with nursing staff, reviewed the chart. He slept 4 hours previous night. The patient has urinated on the floor at night. He was putting himself on the floor, naked. Per nursing report he was trying to stay up late at night and I addressed this with him. Review of Systems: Ambulation impaired. No CV, , pulmonary, eye, ENT system symptoms on review. Mental Status Exam: The patient is oriented reasonably. Speech has some latency, coherent. Abstraction is fair. Computation is impaired. Language function is intact. Attention span is fair. Mood and affect is much less grandiose, less manic, labile, and lability is improved. Laboratory Data: Reviewed. Impression: Bipolar 1 disorder manic with psychotic features. Anxiety disorder unspecified. Impulse control disorder unspecified. Plan: Continue current psychotropics. We may consider reducing Risperdal at some point. For now continue everything unchanged. Assessment: Vital Signs/I&O: Vital Signs Date Time Temp Pulse Resp B/P (MAP) Pulse Ox O2 Delivery O2 Flow Rate FiO2 08/08/20 07:30 85 133/78 08/08/20 06:28 97.7 18 95 Room Air I & O 08/07/20 08/07/20 08/08/20 15:00 23:00 07:00 Intake Total 760 ml 600 ml 480 ml Balance 760 ml 600 ml 480 ml Current Medications: Meds: Current Medications Medications (Trade) Dose Ordered Sig/Luciana Route PRN Reason Start Time Stop Time Status Last Admin Dose Admin Acetaminophen (Tylenol) 650 mg PRN Q6HRS PRN PO MILD PAIN / TEMP > 100.3'F 07/24/20 15:30 08/01/20 04:17 Multi-Ingredient Ointment (Analgesic [place]) 1 radha PRN QID PRN TP MUSCLE PAIN 07/24/20 15:30 Al Hydroxide/Mg Hydroxide (Mylanta Plus Xs) 15 ml PRN AFTMEALHC PRN PO DYSPEPSIA 07/24/20 15:30 Magnesium Hydroxide (Milk Of Magnesia) 2,400 mg PRN QHS PRN PO CONSTIPATION 07/24/20 15:30 Nicotine (Nicoderm Cq 7mg Patch) 1 patch DAILY TD 07/25/20 09:00 07/25/20 00:32 DC Nicotine Polacrilex (Nicorette Gum) 2 mg PRN Q1HR PRN BC SMOKING CESSATION 07/24/20 16:30 07/26/20 16:33 DC 07/26/20 15:15 Aspirin (Aspirin Chewable) 81 mg DAILYWBKFT PO 07/25/20 08:00 08/08/20 07:29 Levothyroxine Sodium (Synthroid) 100 mcg DAILY06 PO 07/25/20 06:00 08/08/20 05:45 Lisinopril (Prinivil) 20 mg DAILY PO 07/25/20 09:00 08/08/20 07:30 Lorazepam (Ativan) 1 mg PRN Q4HRS PRN PO ANXIETY / AGITATION 07/24/20 17:00 07/31/20 05:49 Lorazepam (Ativan) 1.5 mg QHS PO 07/24/20 21:00 07/29/20 18:41 DC 07/28/20 19:39 Fluoxetine HCl (PROzac) 20 mg DAILY PO 07/25/20 09:00 07/30/20 18:04 DC 07/30/20 09:56 Risperidone (RisperDAL) 1.5 mg BID PO 07/24/20 21:00 07/29/20 18:41 DC 07/29/20 08:04 Quetiapine Fumarate (SEROquel) 800 mg QHS PO 07/24/20 21:00 08/07/20 21:00 Calcium Carbonate/ Glycine (Tums) 1,000 mg PRN Q8HRS PRN PO INDIGESTION 07/24/20 17:00 08/07/20 04:52 Divalproex Sodium (Depakote Er) 500 mg QHS PO 07/25/20 21:00 07/29/20 18:41 DC 07/28/20 19:38 Polyethylene Glycol (miraLAX) 17 gm DAILY PO 07/26/20 09:00 08/08/20 07:29 Ibuprofen (Motrin) 600 mg PRN Q6HRS PRN PO INFLAMMATION 07/25/20 15:45 08/08/20 07:32 Nicotine (Nicoderm Cq 7mg Patch) 1 patch DAILY TD 07/26/20 18:15 08/08/20 07:30 Ketoconazole (Nizoral 2% Shampoo) 1 radha PRN DAILY PRN TP SEE COMMENTS 07/28/20 14:15 Amlodipine Besylate (Norvasc) 5 mg 1X ONCE PO 07/29/20 18:00 07/29/20 18:01 DC 07/29/20 17:54 Amlodipine Besylate (Norvasc) 5 mg DAILY PO 07/30/20 09:00 08/08/20 07:30 Divalproex Sodium (Depakote Er) 1,000 mg QHS PO 07/29/20 21:00 08/01/20 18:08 DC 07/31/20 20:54 Risperidone (RisperDAL) 2 mg BID PO 07/29/20 21:00 08/08/20 07:30 Clonazepam (KlonoPIN) 1 mg HS PO 07/29/20 21:00 08/11/20 21:00 08/07/20 21:01 Clonazepam (KlonoPIN) 0.5 mg 0900,1300 PO 07/30/20 09:00 08/06/20 18:16 DC 08/06/20 08:05 Trazodone HCl (Desyrel) 100 mg QHS PO 07/30/20 21:00 07/31/20 17:18 DC 07/30/20 19:58 Trazodone HCl (Desyrel) 100 mg PRN QHS PRN PO INSOMNIA 07/30/20 23:15 07/30/20 23:17 Trazodone HCl (Desyrel) 200 mg QHS PO 07/31/20 21:00 08/05/20 17:13 DC 08/04/20 21:22 Trazodone HCl (Desyrel) 25 mg TID@0900,1300,1700 PO 08/01/20 09:00 08/05/20 17:13 DC 08/04/20 17:39 Trazodone HCl (Desyrel) 50 mg 1X ONCE PO 07/31/20 17:15 07/31/20 17:32 DC 07/31/20 17:15 Mirtazapine (Remeron) 7.5 mg QHS PO 07/31/20 21:00 08/04/20 17:26 DC 08/03/20 20:33 Divalproex Sodium (Depakote Er) 1,500 mg QHS PO 08/01/20 21:00 08/07/20 21:00 Benztropine Mesylate (Cogentin) 0.5 mg HS PO 08/03/20 21:00 08/04/20 17:26 DC 08/03/20 20:35 Benztropine Mesylate (Cogentin) 1 mg HS PO 08/04/20 21:00 08/07/20 21:00 Mirtazapine (Remeron) 15 mg QHS PO 08/04/20 21:00 08/07/20 21:00 Trazodone HCl (Desyrel) 200 mg PRN QHS PRN PO Sleep 08/05/20 20:00 08/05/20 20:34 Neomycin/ Polymyxin/Bacitr/ Hydrocort (Cortisporin Ophth) 2 radha BID OU 08/06/20 21:00 08/08/20 07:29 Clonazepam (KlonoPIN) 0.5 mg 1300 PO 08/07/20 13:00 08/09/20 13:00 08/07/20 12:33 Current Medications Medications (Trade) Dose Ordered Sig/Luciana Route PRN Reason Start Time Stop Time Status Last Admin Dose Admin Clonazepam (KlonoPIN) 0.5 mg 1300 PO 08/07/20 13:00 08/09/20 13:00 08/07/20 12:33 I have reviewed the current psychotropics carefully including drug interactions. Risk benefit ratio favors no change other than as noted in my dictated progress note. Diagnosis: Problems: (1) Schizoaffective disorder, bipolar type (2) Impulse control disorder, unspecified (3) Anxiety disorder, unspecified (4) Bipolar I disorder, current or most recent episode manic, with psychotic features with mixed features ELIDIA VELA MD Aug 08, 2020 09:24
--- NOTE | 2020-08-08 11:10 | NUR ---
WEEKLY ACTIVITY THERAPY NOTE Date of Admission: 07/24 Date of AT Assessment: 07/27 Precipitating behaviors that initiated intake and admission:manic, verbal altercation with roommate, making sexually inappropriate comments to peers, kicked kitchen staff in butt, insomnia, agitated, hyperverbal, pacing, restless, pulled pants down in dining room exposing butt to peers Goal aimed: increase stress management/relaxation and socialization skills Initial Goal: Pt will participate in all Activity Therapy group sessions per week. Weekly progress towards goal: achieved Group participation level: 8 full, 6 mod Weekly highlights: drumming on Wednesday afternoon Behaviors observed: baby steps/ shuffling feet often this week, in and out of group and changes seats often, interrupts but easy to redirect Plan: no change to goal Beneficial adaptations:
[2020-08-08] MEDS ORDERED: traZODone 100 MG TABLET. PO PRN (11:15)
[2020-08-08] MEDS: clonazePAM 0.5 MG TABLET PO SCH (12:40)
--- NOTE | 2020-08-08 14:54 | NUR ---
Nursing note: Pt in they day room at time of AM med pass. He is pleasant, med compliant and cooperative. Pt c/o back pain and requested motrin. PRN provided with good effect. He has spent time listening to music in his room, but is currently sitting quietly in the day room watching a movie. Will continue to monitor.
[2020-08-08 15:47] VITALS: BP 134/66
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
--- NOTE | 2020-08-08 17:01 | EKG ---
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
[2020-08-08] MEDS: BENZTROPINE MESYLATE 0.5 MG TABLET PO SCH (20:17)
[2020-08-08] MEDS: DIVALPROEX ER 500 MG TAB.ER.24H PO SCH (20:18)
[2020-08-08] MEDS: MIRTAZAPINE 15 MG TABLET PO SCH (20:19)
[2020-08-08] MEDS: QUEtiapine 100 MG TABLET. PO SCH (20:19)
[2020-08-08] MEDS: clonazePAM 1 MG TABLET PO SCH (20:19)
[2020-08-08] MEDS ORDERED: traZODone 100 MG TABLET. PO SCH (21:00)
--- NOTE | 2020-08-08 21:15 | PDOC ---
Exam Note: David Note: Please also refer to the separate dictated note~for this date of service dictated separately.~Patient seen individually. Discussed the patient with Nursing staff reviewed the chart.~Reviewed interim history and current functioning. Reviewed vital signs,~Labs/ Radiology~and current medications noted below. Continue current treatment with the changes noted in the dictated addendum note Assessment: Vital Signs/I&O: Vital Signs Date Time Temp Pulse Resp B/P (MAP) Pulse Ox O2 Delivery O2 Flow Rate FiO2 08/08/20 15:47 97.3 73 18 134/66 (88) 98 08/08/20 06:28 Room Air I & O 08/07/20 08/07/20 08/08/20 15:00 23:00 07:00 Intake Total 760 ml 600 ml 480 ml Balance 760 ml 600 ml 480 ml Current Medications: Meds: Current Medications Medications (Trade) Dose Ordered Sig/Luciana Route PRN Reason Start Time Stop Time Status Last Admin Dose Admin Acetaminophen (Tylenol) 650 mg PRN Q6HRS PRN PO MILD PAIN / TEMP > 100.3'F 07/24/20 15:30 08/01/20 04:17 Multi-Ingredient Ointment (Analgesic [place]) 1 radha PRN QID PRN TP MUSCLE PAIN 07/24/20 15:30 Al Hydroxide/Mg Hydroxide (Mylanta Plus Xs) 15 ml PRN AFTMEALHC PRN PO DYSPEPSIA 07/24/20 15:30 Magnesium Hydroxide (Milk Of Magnesia) 2,400 mg PRN QHS PRN PO CONSTIPATION 07/24/20 15:30 Nicotine (Nicoderm Cq 7mg Patch) 1 patch DAILY TD 07/25/20 09:00 07/25/20 00:32 DC Nicotine Polacrilex (Nicorette Gum) 2 mg PRN Q1HR PRN BC SMOKING CESSATION 07/24/20 16:30 07/26/20 16:33 DC 07/26/20 15:15 Aspirin (Aspirin Chewable) 81 mg DAILYWBKFT PO 07/25/20 08:00 08/08/20 07:29 Levothyroxine Sodium (Synthroid) 100 mcg DAILY06 PO 07/25/20 06:00 08/08/20 05:45 Lisinopril (Prinivil) 20 mg DAILY PO 07/25/20 09:00 08/08/20 07:30 Lorazepam (Ativan) 1 mg PRN Q4HRS PRN PO ANXIETY / AGITATION 07/24/20 17:00 07/31/20 05:49 Lorazepam (Ativan) 1.5 mg QHS PO 07/24/20 21:00 07/29/20 18:41 DC 07/28/20 19:39 Fluoxetine HCl (PROzac) 20 mg DAILY PO 07/25/20 09:00 07/30/20 18:04 DC 07/30/20 09:56 Risperidone (RisperDAL) 1.5 mg BID PO 07/24/20 21:00 07/29/20 18:41 DC 07/29/20 08:04 Quetiapine Fumarate (SEROquel) 800 mg QHS PO 07/24/20 21:00 08/08/20 20:19 Calcium Carbonate/ Glycine (Tums) 1,000 mg PRN Q8HRS PRN PO INDIGESTION 07/24/20 17:00 08/07/20 04:52 Divalproex Sodium (Depakote Er) 500 mg QHS PO 07/25/20 21:00 07/29/20 18:41 DC 07/28/20 19:38 Polyethylene Glycol (miraLAX) 17 gm DAILY PO 07/26/20 09:00 08/08/20 07:29 Ibuprofen (Motrin) 600 mg PRN Q6HRS PRN PO INFLAMMATION 07/25/20 15:45 08/08/20 07:32 Nicotine (Nicoderm Cq 7mg Patch) 1 patch DAILY TD 07/26/20 18:15 08/08/20 07:30 Ketoconazole (Nizoral 2% Shampoo) 1 radha PRN DAILY PRN TP SEE COMMENTS 07/28/20 14:15 Amlodipine Besylate (Norvasc) 5 mg 1X ONCE PO 07/29/20 18:00 07/29/20 18:01 DC 07/29/20 17:54 Amlodipine Besylate (Norvasc) 5 mg DAILY PO 07/30/20 09:00 08/08/20 07:30 Divalproex Sodium (Depakote Er) 1,000 mg QHS PO 07/29/20 21:00 08/01/20 18:08 DC 07/31/20 20:54 Risperidone (RisperDAL) 2 mg BID PO 07/29/20 21:00 08/08/20 20:18 Clonazepam (KlonoPIN) 1 mg HS PO 07/29/20 21:00 08/11/20 21:00 08/08/20 20:19 Clonazepam (KlonoPIN) 0.5 mg 0900,1300 PO 07/30/20 09:00 08/06/20 18:16 DC 08/06/20 08:05 Trazodone HCl (Desyrel) 100 mg QHS PO 07/30/20 21:00 07/31/20 17:18 DC 07/30/20 19:58 Trazodone HCl (Desyrel) 100 mg PRN QHS PRN PO INSOMNIA 07/30/20 23:15 08/08/20 11:18 DC 07/30/20 23:17 Trazodone HCl (Desyrel) 200 mg QHS PO 07/31/20 21:00 08/05/20 17:13 DC 08/04/20 21:22 Trazodone HCl (Desyrel) 25 mg TID@0900,1300,1700 PO 08/01/20 09:00 08/05/20 17:13 DC 08/04/20 17:39 Trazodone HCl (Desyrel) 50 mg 1X ONCE PO 07/31/20 17:15 07/31/20 17:32 DC 07/31/20 17:15 Mirtazapine (Remeron) 7.5 mg QHS PO 07/31/20 21:00 08/04/20 17:26 DC 08/03/20 20:33 Divalproex Sodium (Depakote Er) 1,500 mg QHS PO 08/01/20 21:00 08/08/20 20:18 Benztropine Mesylate (Cogentin) 0.5 mg HS PO 08/03/20 21:00 08/04/20 17:26 DC 08/03/20 20:35 Benztropine Mesylate (Cogentin) 1 mg HS PO 08/04/20 21:00 08/08/20 20:17 Mirtazapine (Remeron) 15 mg QHS PO 08/04/20 21:00 08/08/20 20:19 Trazodone HCl (Desyrel) 200 mg PRN QHS PRN PO Sleep 08/05/20 20:00 08/08/20 11:18 DC 08/05/20 20:34 Neomycin/ Polymyxin/Bacitr/ Hydrocort (Cortisporin Ophth) 2 radha BID OU 08/06/20 21:00 08/08/20 20:17 Clonazepam (KlonoPIN) 0.5 mg 1300 PO 08/07/20 13:00 08/09/20 13:00 08/08/20 12:40 Trazodone HCl (Desyrel) 150 mg QHS PO 08/08/20 21:00 08/08/20 20:19 Trazodone HCl (Desyrel) 150 mg PRN QHS PRN PO INSOMNIA 08/08/20 11:15 Current Medications Medications (Trade) Dose Ordered Sig/Luciana Route PRN Reason Start Time Stop Time Status Last Admin Dose Admin Trazodone HCl (Desyrel) 150 mg QHS PO 08/08/20 21:00 08/08/20 20:19 I have reviewed the current psychotropics carefully including drug interactions. Risk benefit ratio favors no change other than as noted in my dictated progress note. Diagnosis: Problems: (1) Schizoaffective disorder, bipolar type (2) Impulse control disorder, unspecified (3) Anxiety disorder, unspecified (4) Bipolar I disorder, current or most recent episode manic, with psychotic features with mixed features ELIDIA VELA MD Aug 08, 2020 21:15
--- NOTE | 2020-08-08 23:57 | NUR ---
Nursing Note: Pt sitting in day room, watching television at shift change. Pt calm, interactive with staff and peers but is also attention seeking and manipulative. Pt witnessed walking with a steady gait to his room at . At 2259, pt put himself on the floor in his bathroom. When asked what he was doing on the floor, pt snarkily replied "using the bathroom, what do you think?" Pt assessed, no apparent injuries noted. Pt was assisted off the floor and escorted back to bed, alarm in use. Pt up moments later reportedly to use the bathroom again but did not void and was once again assisted back to bed. Within minutes, pt had urinated in his bed. Staff currently sitting at pt bedside to monitor behaviors and safety. Addendum: 08/09/20 at 0120 by NINA AKHTAR RN It was reported to me that on 08/07/2020, pt told cage shift manager PRODUCTION TROUBLESHOOTER, that if he were to be taken off of his medications, that "none of you are safe".
--- NOTE | 2020-08-09 01:20 | NUR ---
Nursing Note: STEAM HEATING INSTALLER sitting at pt bedside to monitor behaviors and safety. Pt attempted to get out of bed, pulled his brief down and attempted to urinate on the bed, however, he didn't pull the brief down far enough and he ended up urinating in the brief. STEAM HEATING INSTALLER told pt that he needed to lie back down. Pt then stated, "Do you know who I am? I wouldn't stand that close to me if I were you. I could kill you before you turned your neck. or not." At that time, all staff responded immediately to pt's room. Pt attempted to say "I was just joking". I informed him that threatening staff is not a joke. Pt then escorted to the [facility] for the safety of others.
[2020-08-09] MEDS: LEVOTHYROXINE 100 MCG TABLET PO SCH (05:18)
--- NOTE | 2020-08-09 07:52 | PDOC ---
Exam Note: David Note: This note is a late entry for 08/08/2020 covers elements not covered in my initial note. Subjective: The patient was seen face to face in the morning of 08/08/2020 for a treatment team meeting with Rama Robbins and Clarisa (social work administrator), Shannon Arreola, activity therapy and Ivonne MARSHALL. Discussed with nursing staff, reviewed the chart. He slept 2-1/4 hours previous night. Overall the patient remains confused at times, urinated in his bed previous night, agitated. Walking has been impaired but in the evening when I had him walk for me, he was quite appropriate in ambulation. Sometimes he has bizarre behaviors, putting his fit pants on his arms and laughing inappropriately. Review of Systems: No CV, , pulmonary, eye, ENT system symptoms on review. He appears a little drowsy at times. Mental Status Exam: The patient is oriented reasonably. Speech is coherent, less pressured. Abstraction is fair. Computation is impaired. Language function is intact. Mood and affect less labile, anxious, less grandiose. No suicidal or homicidal ideation. Laboratory Data: Reviewed. Impression: Bipolar 1 disorder manic with psychotic features. Anxiety disorder unspecified. Impulse control disorder unspecified. Plan: Check an EKG for QTC interval. He is sleeping poorly just 2-1/4 hours previous night. Start trazodone 150 mg h.s. schedule and may repeat x1. Continue rest of the psychotropics unchanged. Assessment: Vital Signs/I&O: Vital Signs Date Time Temp Pulse Resp B/P (MAP) Pulse Ox O2 Delivery O2 Flow Rate FiO2 08/08/20 15:47 97.3 73 18 134/66 (88) 98 08/08/20 06:28 Room Air I & O 08/08/20 08/08/20 08/09/20 15:00 23:00 07:00 Intake Total 720 ml 600 ml Balance 720 ml 600 ml Current Medications: Meds: Current Medications Medications (Trade) Dose Ordered Sig/Luciana Route PRN Reason Start Time Stop Time Status Last Admin Dose Admin Acetaminophen (Tylenol) 650 mg PRN Q6HRS PRN PO MILD PAIN / TEMP > 100.3'F 07/24/20 15:30 08/01/20 04:17 Multi-Ingredient Ointment (Analgesic [place]) 1 radha PRN QID PRN TP MUSCLE PAIN 07/24/20 15:30 Al Hydroxide/Mg Hydroxide (Mylanta Plus Xs) 15 ml PRN AFTMEALHC PRN PO DYSPEPSIA 07/24/20 15:30 Magnesium Hydroxide (Milk Of Magnesia) 2,400 mg PRN QHS PRN PO CONSTIPATION 07/24/20 15:30 Nicotine (Nicoderm Cq 7mg Patch) 1 patch DAILY TD 07/25/20 09:00 07/25/20 00:32 DC Nicotine Polacrilex (Nicorette Gum) 2 mg PRN Q1HR PRN BC SMOKING CESSATION 07/24/20 16:30 07/26/20 16:33 DC 07/26/20 15:15 Aspirin (Aspirin Chewable) 81 mg DAILYWBKFT PO 07/25/20 08:00 08/08/20 07:29 Levothyroxine Sodium (Synthroid) 100 mcg DAILY06 PO 07/25/20 06:00 08/09/20 05:18 Lisinopril (Prinivil) 20 mg DAILY PO 07/25/20 09:00 08/08/20 07:30 Lorazepam (Ativan) 1 mg PRN Q4HRS PRN PO ANXIETY / AGITATION 07/24/20 17:00 07/31/20 05:49 Lorazepam (Ativan) 1.5 mg QHS PO 07/24/20 21:00 07/29/20 18:41 DC 07/28/20 19:39 Fluoxetine HCl (PROzac) 20 mg DAILY PO 07/25/20 09:00 07/30/20 18:04 DC 07/30/20 09:56 Risperidone (RisperDAL) 1.5 mg BID PO 07/24/20 21:00 07/29/20 18:41 DC 07/29/20 08:04 Quetiapine Fumarate (SEROquel) 800 mg QHS PO 07/24/20 21:00 08/08/20 20:19 Calcium Carbonate/ Glycine (Tums) 1,000 mg PRN Q8HRS PRN PO INDIGESTION 07/24/20 17:00 08/07/20 04:52 Divalproex Sodium (Depakote Er) 500 mg QHS PO 07/25/20 21:00 07/29/20 18:41 DC 07/28/20 19:38 Polyethylene Glycol (miraLAX) 17 gm DAILY PO 07/26/20 09:00 08/08/20 07:29 Ibuprofen (Motrin) 600 mg PRN Q6HRS PRN PO INFLAMMATION 07/25/20 15:45 08/08/20 07:32 Nicotine (Nicoderm Cq 7mg Patch) 1 patch DAILY TD 07/26/20 18:15 08/08/20 07:30 Ketoconazole (Nizoral 2% Shampoo) 1 radha PRN DAILY PRN TP SEE COMMENTS 07/28/20 14:15 Amlodipine Besylate (Norvasc) 5 mg 1X ONCE PO 07/29/20 18:00 07/29/20 18:01 DC 07/29/20 17:54 Amlodipine Besylate (Norvasc) 5 mg DAILY PO 07/30/20 09:00 08/08/20 07:30 Divalproex Sodium (Depakote Er) 1,000 mg QHS PO 07/29/20 21:00 08/01/20 18:08 DC 07/31/20 20:54 Risperidone (RisperDAL) 2 mg BID PO 07/29/20 21:00 08/08/20 20:18 Clonazepam (KlonoPIN) 1 mg HS PO 07/29/20 21:00 08/11/20 21:00 08/08/20 20:19 Clonazepam (KlonoPIN) 0.5 mg 0900,1300 PO 07/30/20 09:00 08/06/20 18:16 DC 08/06/20 08:05 Trazodone HCl (Desyrel) 100 mg QHS PO 07/30/20 21:00 07/31/20 17:18 DC 07/30/20 19:58 Trazodone HCl (Desyrel) 100 mg PRN QHS PRN PO INSOMNIA 07/30/20 23:15 08/08/20 11:18 DC 07/30/20 23:17 Trazodone HCl (Desyrel) 200 mg QHS PO 07/31/20 21:00 08/05/20 17:13 DC 08/04/20 21:22 Trazodone HCl (Desyrel) 25 mg TID@0900,1300,1700 PO 08/01/20 09:00 08/05/20 17:13 DC 08/04/20 17:39 Trazodone HCl (Desyrel) 50 mg 1X ONCE PO 07/31/20 17:15 07/31/20 17:32 DC 07/31/20 17:15 Mirtazapine (Remeron) 7.5 mg QHS PO 07/31/20 21:00 08/04/20 17:26 DC 08/03/20 20:33 Divalproex Sodium (Depakote Er) 1,500 mg QHS PO 08/01/20 21:00 08/08/20 20:18 Benztropine Mesylate (Cogentin) 0.5 mg HS PO 08/03/20 21:00 08/04/20 17:26 DC 08/03/20 20:35 Benztropine Mesylate (Cogentin) 1 mg HS PO 08/04/20 21:00 08/08/20 20:17 Mirtazapine (Remeron) 15 mg QHS PO 08/04/20 21:00 08/08/20 20:19 Trazodone HCl (Desyrel) 200 mg PRN QHS PRN PO Sleep 08/05/20 20:00 08/08/20 11:18 DC 08/05/20 20:34 Neomycin/ Polymyxin/Bacitr/ Hydrocort (Cortisporin Ophth) 2 radha BID OU 08/06/20 21:00 08/08/20 20:17 Clonazepam (KlonoPIN) 0.5 mg 1300 PO 08/07/20 13:00 08/09/20 13:00 08/08/20 12:40 Trazodone HCl (Desyrel) 150 mg QHS PO 08/08/20 21:00 08/08/20 20:19 Trazodone HCl (Desyrel) 150 mg PRN QHS PRN PO INSOMNIA 08/08/20 11:15 08/08/20 22:21 Current Medications Medications (Trade) Dose Ordered Sig/Luciana Route PRN Reason Start Time Stop Time Status Last Admin Dose Admin Trazodone HCl (Desyrel) 150 mg QHS PO 08/08/20 21:00 08/08/20 20:19 Trazodone HCl (Desyrel) 150 mg PRN QHS PRN PO INSOMNIA 08/08/20 11:15 08/08/20 22:21 I have reviewed the current psychotropics carefully including drug interactions. Risk benefit ratio favors no change other than as noted in my dictated progress note. Diagnosis: Problems: (1) Schizoaffective disorder, bipolar type (2) Impulse control disorder, unspecified (3) Anxiety disorder, unspecified (4) Bipolar I disorder, current or most recent episode manic, with psychotic features with mixed features ELIDIA VELA MD Aug 09, 2020 07:52
[2020-08-09] MEDS: ASPIRIN CHEWABLE 81 MG TABLET. PO SCH (08:00)
[2020-08-09] MEDS: NEOMYCIN/BACI/POLY/HC OPHTH OINTMENT 3.5GM TUBE. OU SCH ×2 (08:20→19:45)
[2020-08-09] MEDS: LISINOPRIL 20 MG TABLET PO SCH (08:20)
[2020-08-09] MEDS: risperiDONE 2 MG TABLET. PO SCH ×2 (08:20→19:47)
[2020-08-09] MEDS: POLYETHYLENE GLYCOL 3350 17 GM PACKET. PO SCH (08:20)
[2020-08-09] MEDS: NICOTINE 7MG PATCH. TD SCH (08:20)
[2020-08-09] MEDS: amLODIPine BESYLATE 5 MG TABLET PO SCH (08:20)
[2020-08-09] MEDS: LORazepam 1 MG TABLET PO PRN (11:03)
[2020-08-09] MEDS: clonazePAM 0.5 MG TABLET PO SCH (12:27)
--- NOTE | 2020-08-09 12:28 | NUR ---
Patient had taken a PRN for anxiety around 11:00 and if very drowsy at time of Clonazapem due. Medication not given.
--- NOTE | 2020-08-09 14:25 | NUR ---
Spoke to Marlon regarding patient and night time behaviors and how exhausted he is during the day. He is not sleeping and he is urinating on his bed purposely. Per Dr Mason we will start Trazadone 200mg QHS again and Prolixin 2mg @ 1700.We will continue to monitor patient to see how he does.
[2020-08-09 16:26] VITALS: BP 123/75
[2020-08-09] MEDS: clonazePAM 1 MG TABLET PO SCH (19:46)
[2020-08-09] MEDS: DIVALPROEX ER 500 MG TAB.ER.24H PO SCH (19:46)
[2020-08-09] MEDS: MIRTAZAPINE 15 MG TABLET PO SCH (19:47)
[2020-08-09] MEDS: traZODone 100 MG TABLET. PO SCH (19:48)
[2020-08-09] MEDS: BENZTROPINE MESYLATE 0.5 MG TABLET PO SCH (19:48)
[2020-08-09] MEDS: QUEtiapine 100 MG TABLET. PO SCH (19:49)
--- NOTE | 2020-08-09 21:13 | PDOC ---
Exam Note: David Note: Please also refer to the separate dictated note~for this date of service dictated separately.~Patient seen individually. Discussed the patient with Nursing staff reviewed the chart.~Reviewed interim history and current functioning. Reviewed vital signs,~Labs/ Radiology~and current medications noted below. Continue current treatment with the changes noted in the dictated addendum note Assessment: Vital Signs/I&O: Vital Signs Date Time Temp Pulse Resp B/P (MAP) Pulse Ox O2 Delivery O2 Flow Rate FiO2 08/09/20 16:26 99.0 74 20 123/75 (91) 96 Room Air I & O 08/08/20 08/08/20 08/09/20 15:00 23:00 07:00 Intake Total 720 ml 600 ml Balance 720 ml 600 ml Current Medications: Meds: Current Medications Medications (Trade) Dose Ordered Sig/Luciana Route PRN Reason Start Time Stop Time Status Last Admin Dose Admin Acetaminophen (Tylenol) 650 mg PRN Q6HRS PRN PO MILD PAIN / TEMP > 100.3'F 07/24/20 15:30 08/01/20 04:17 Multi-Ingredient Ointment (Analgesic [place]) 1 radha PRN QID PRN TP MUSCLE PAIN 07/24/20 15:30 Al Hydroxide/Mg Hydroxide (Mylanta Plus Xs) 15 ml PRN AFTMEALHC PRN PO DYSPEPSIA 07/24/20 15:30 Magnesium Hydroxide (Milk Of Magnesia) 2,400 mg PRN QHS PRN PO CONSTIPATION 07/24/20 15:30 Nicotine (Nicoderm Cq 7mg Patch) 1 patch DAILY TD 07/25/20 09:00 07/25/20 00:32 DC Nicotine Polacrilex (Nicorette Gum) 2 mg PRN Q1HR PRN BC SMOKING CESSATION 07/24/20 16:30 07/26/20 16:33 DC 07/26/20 15:15 Aspirin (Aspirin Chewable) 81 mg DAILYWBKFT PO 07/25/20 08:00 08/09/20 08:00 Levothyroxine Sodium (Synthroid) 100 mcg DAILY06 PO 07/25/20 06:00 08/09/20 05:18 Lisinopril (Prinivil) 20 mg DAILY PO 07/25/20 09:00 08/09/20 08:20 Lorazepam (Ativan) 1 mg PRN Q4HRS PRN PO ANXIETY / AGITATION 07/24/20 17:00 08/09/20 11:03 Lorazepam (Ativan) 1.5 mg QHS PO 07/24/20 21:00 07/29/20 18:41 DC 07/28/20 19:39 Fluoxetine HCl (PROzac) 20 mg DAILY PO 07/25/20 09:00 07/30/20 18:04 DC 07/30/20 09:56 Risperidone (RisperDAL) 1.5 mg BID PO 07/24/20 21:00 07/29/20 18:41 DC 07/29/20 08:04 Quetiapine Fumarate (SEROquel) 800 mg QHS PO 07/24/20 21:00 08/09/20 19:49 Calcium Carbonate/ Glycine (Tums) 1,000 mg PRN Q8HRS PRN PO INDIGESTION 07/24/20 17:00 08/07/20 04:52 Divalproex Sodium (Depakote Er) 500 mg QHS PO 07/25/20 21:00 07/29/20 18:41 DC 07/28/20 19:38 Polyethylene Glycol (miraLAX) 17 gm DAILY PO 07/26/20 09:00 08/09/20 08:20 Ibuprofen (Motrin) 600 mg PRN Q6HRS PRN PO INFLAMMATION 07/25/20 15:45 08/08/20 07:32 Nicotine (Nicoderm Cq 7mg Patch) 1 patch DAILY TD 07/26/20 18:15 08/09/20 08:20 Ketoconazole (Nizoral 2% Shampoo) 1 radha PRN DAILY PRN TP SEE COMMENTS 07/28/20 14:15 Amlodipine Besylate (Norvasc) 5 mg 1X ONCE PO 07/29/20 18:00 07/29/20 18:01 DC 07/29/20 17:54 Amlodipine Besylate (Norvasc) 5 mg DAILY PO 07/30/20 09:00 08/09/20 08:20 Divalproex Sodium (Depakote Er) 1,000 mg QHS PO 07/29/20 21:00 08/01/20 18:08 DC 07/31/20 20:54 Risperidone (RisperDAL) 2 mg BID PO 07/29/20 21:00 08/09/20 19:47 Clonazepam (KlonoPIN) 1 mg HS PO 07/29/20 21:00 08/11/20 21:00 08/09/20 19:46 Clonazepam (KlonoPIN) 0.5 mg 0900,1300 PO 07/30/20 09:00 08/06/20 18:16 DC 08/06/20 08:05 Trazodone HCl (Desyrel) 100 mg QHS PO 07/30/20 21:00 07/31/20 17:18 DC 07/30/20 19:58 Trazodone HCl (Desyrel) 100 mg PRN QHS PRN PO INSOMNIA 07/30/20 23:15 08/08/20 11:18 DC 07/30/20 23:17 Trazodone HCl (Desyrel) 200 mg QHS PO 07/31/20 21:00 08/05/20 17:13 DC 08/04/20 21:22 Trazodone HCl (Desyrel) 25 mg TID@0900,1300,1700 PO 08/01/20 09:00 08/05/20 17:13 DC 08/04/20 17:39 Trazodone HCl (Desyrel) 50 mg 1X ONCE PO 07/31/20 17:15 07/31/20 17:32 DC 07/31/20 17:15 Mirtazapine (Remeron) 7.5 mg QHS PO 07/31/20 21:00 08/04/20 17:26 DC 08/03/20 20:33 Divalproex Sodium (Depakote Er) 1,500 mg QHS PO 08/01/20 21:00 08/09/20 19:46 Benztropine Mesylate (Cogentin) 0.5 mg HS PO 08/03/20 21:00 08/04/20 17:26 DC 08/03/20 20:35 Benztropine Mesylate (Cogentin) 1 mg HS PO 08/04/20 21:00 08/09/20 19:48 Mirtazapine (Remeron) 15 mg QHS PO 08/04/20 21:00 08/09/20 19:47 Trazodone HCl (Desyrel) 200 mg PRN QHS PRN PO Sleep 08/05/20 20:00 08/08/20 11:18 DC 08/05/20 20:34 Neomycin/ Polymyxin/Bacitr/ Hydrocort (Cortisporin Ophth) 2 radha BID OU 08/06/20 21:00 08/09/20 19:45 Clonazepam (KlonoPIN) 0.5 mg 1300 PO 08/07/20 13:00 08/09/20 13:00 DC 08/08/20 12:40 Trazodone HCl (Desyrel) 150 mg QHS PO 08/08/20 21:00 08/09/20 15:37 DC 08/08/20 20:19 Trazodone HCl (Desyrel) 150 mg PRN QHS PRN PO INSOMNIA 08/08/20 11:15 08/08/20 22:21 Fluphenazine HCl (Prolixin) 2.5 mg DAILY PO 08/10/20 17:00 Trazodone HCl (Desyrel) 200 mg QHS PO 08/09/20 21:00 08/09/20 19:48 Current Medications Medications (Trade) Dose Ordered Sig/Luciana Route PRN Reason Start Time Stop Time Status Last Admin Dose Admin Trazodone HCl (Desyrel) 200 mg QHS PO 08/09/20 21:00 08/09/20 19:48 I have reviewed the current psychotropics carefully including drug interactions. Risk benefit ratio favors no change other than as noted in my dictated progress note. Diagnosis: Problems: (1) Schizoaffective disorder, bipolar type (2) Impulse control disorder, unspecified (3) Anxiety disorder, unspecified (4) Bipolar I disorder, current or most recent episode manic, with psychotic features with mixed features ELIDIA VELA MD Aug 09, 2020 21:13
--- NOTE | 2020-08-09 23:13 | NUR ---
Patient in his room on assumption of care, awake in bed. He is compliant with assessments and medications taken whole. Patient was given a urinal to try to solve the problem of him urinating on the floor and the bed, with explicit instructions to only use it appropriately or it would be taken away from him. A short while ago, VERA found the patient in his bathroom. He had disrobed completely and made a mess on the floor, playing with the urinal. Urinal taken away at that time. He is in his room presently, awake in bed. Will continue to monitor.
[2020-08-10] MEDS: LEVOTHYROXINE 100 MCG TABLET PO SCH (05:29)
[2020-08-10 06:23] VITALS: BP 144/84
[2020-08-10] MEDS: risperiDONE 2 MG TABLET. PO SCH ×2 (08:34→20:26)
[2020-08-10] MEDS: POLYETHYLENE GLYCOL 3350 17 GM PACKET. PO SCH (08:34)
[2020-08-10] MEDS: NICOTINE 7MG PATCH. TD SCH (08:34)
[2020-08-10] MEDS: amLODIPine BESYLATE 5 MG TABLET PO SCH (08:35)
[2020-08-10] MEDS: LISINOPRIL 20 MG TABLET PO SCH (08:35)
[2020-08-10] MEDS: ASPIRIN CHEWABLE 81 MG TABLET. PO SCH (08:35)
[2020-08-10] MEDS: NEOMYCIN/BACI/POLY/HC OPHTH OINTMENT 3.5GM TUBE. OU SCH ×2 (08:38→20:26)
--- NOTE | 2020-08-10 11:12 | NUR ---
Pt appears to be relatively cooperative and appropriate so far during shift. He is med complaint and cooperative with assessment. He has spent much of the day listening to music on the tablet and he also showered in the morning. Absent of SI/HI behaviors, denies AH/VH. He has been absent of aggressive behaviors/innuendos to staff and thus far absent of voiding in areas aside from the toilet/urinal. Will pass on to the next shift.
[2020-08-10 15:00] VITALS: BP 133/84
[2020-08-10] MEDS: BENZTROPINE MESYLATE 0.5 MG TABLET PO SCH (20:26)
[2020-08-10] MEDS: MIRTAZAPINE 15 MG TABLET PO SCH (20:27)
[2020-08-10] MEDS: clonazePAM 1 MG TABLET PO SCH (20:27)
[2020-08-10] MEDS: traZODone 100 MG TABLET. PO SCH (20:27)
[2020-08-10] MEDS: DIVALPROEX ER 500 MG TAB.ER.24H PO SCH (20:28)
[2020-08-10] MEDS: QUEtiapine 100 MG TABLET. PO SCH (20:29)
--- NOTE | 2020-08-10 21:07 | PDOC ---
Exam Note: David Note: Please also refer to the separate dictated note~for this date of service dictated separately.~Patient seen individually. Discussed the patient with Nursing staff reviewed the chart.~Reviewed interim history and current functioning. Reviewed vital signs,~Labs/ Radiology~and current medications noted below. Continue current treatment with the changes noted in the dictated addendum note Assessment: Vital Signs/I&O: Vital Signs Date Time Temp Pulse Resp B/P (MAP) Pulse Ox O2 Delivery O2 Flow Rate FiO2 08/10/20 15:00 97.9 72 20 133/84 (100) 97 08/09/20 16:26 Room Air I & O 08/09/20 08/09/20 08/10/20 14:59 22:59 06:59 Intake Total 360 ml 600 ml Balance 360 ml 600 ml Current Medications: Meds: Current Medications Medications (Trade) Dose Ordered Sig/Luciana Route PRN Reason Start Time Stop Time Status Last Admin Dose Admin Acetaminophen (Tylenol) 650 mg PRN Q6HRS PRN PO MILD PAIN / TEMP > 100.3'F 07/24/20 15:30 08/01/20 04:17 Multi-Ingredient Ointment (Analgesic [place]) 1 radha PRN QID PRN TP MUSCLE PAIN 07/24/20 15:30 Al Hydroxide/Mg Hydroxide (Mylanta Plus Xs) 15 ml PRN AFTMEALHC PRN PO DYSPEPSIA 07/24/20 15:30 Magnesium Hydroxide (Milk Of Magnesia) 2,400 mg PRN QHS PRN PO CONSTIPATION 07/24/20 15:30 Nicotine (Nicoderm Cq 7mg Patch) 1 patch DAILY TD 07/25/20 09:00 07/25/20 00:32 DC Nicotine Polacrilex (Nicorette Gum) 2 mg PRN Q1HR PRN BC SMOKING CESSATION 07/24/20 16:30 07/26/20 16:33 DC 07/26/20 15:15 Aspirin (Aspirin Chewable) 81 mg DAILYWBKFT PO 07/25/20 08:00 08/10/20 08:35 Levothyroxine Sodium (Synthroid) 100 mcg DAILY06 PO 07/25/20 06:00 08/10/20 05:29 Lisinopril (Prinivil) 20 mg DAILY PO 07/25/20 09:00 08/10/20 08:35 Lorazepam (Ativan) 1 mg PRN Q4HRS PRN PO ANXIETY / AGITATION 07/24/20 17:00 08/09/20 11:03 Lorazepam (Ativan) 1.5 mg QHS PO 07/24/20 21:00 07/29/20 18:41 DC 07/28/20 19:39 Fluoxetine HCl (PROzac) 20 mg DAILY PO 07/25/20 09:00 07/30/20 18:04 DC 07/30/20 09:56 Risperidone (RisperDAL) 1.5 mg BID PO 07/24/20 21:00 07/29/20 18:41 DC 07/29/20 08:04 Quetiapine Fumarate (SEROquel) 800 mg QHS PO 07/24/20 21:00 08/10/20 20:29 Calcium Carbonate/ Glycine (Tums) 1,000 mg PRN Q8HRS PRN PO INDIGESTION 07/24/20 17:00 08/07/20 04:52 Divalproex Sodium (Depakote Er) 500 mg QHS PO 07/25/20 21:00 07/29/20 18:41 DC 07/28/20 19:38 Polyethylene Glycol (miraLAX) 17 gm DAILY PO 07/26/20 09:00 08/10/20 08:34 Ibuprofen (Motrin) 600 mg PRN Q6HRS PRN PO INFLAMMATION 07/25/20 15:45 08/08/20 07:32 Nicotine (Nicoderm Cq 7mg Patch) 1 patch DAILY TD 07/26/20 18:15 08/10/20 08:34 Ketoconazole (Nizoral 2% Shampoo) 1 radha PRN DAILY PRN TP SEE COMMENTS 07/28/20 14:15 Amlodipine Besylate (Norvasc) 5 mg 1X ONCE PO 07/29/20 18:00 07/29/20 18:01 DC 07/29/20 17:54 Amlodipine Besylate (Norvasc) 5 mg DAILY PO 07/30/20 09:00 08/10/20 08:35 Divalproex Sodium (Depakote Er) 1,000 mg QHS PO 07/29/20 21:00 08/01/20 18:08 DC 07/31/20 20:54 Risperidone (RisperDAL) 2 mg BID PO 07/29/20 21:00 08/10/20 20:26 Clonazepam (KlonoPIN) 1 mg HS PO 07/29/20 21:00 08/11/20 21:00 08/10/20 20:27 Clonazepam (KlonoPIN) 0.5 mg 0900,1300 PO 07/30/20 09:00 08/06/20 18:16 DC 08/06/20 08:05 Trazodone HCl (Desyrel) 100 mg QHS PO 07/30/20 21:00 07/31/20 17:18 DC 07/30/20 19:58 Trazodone HCl (Desyrel) 100 mg PRN QHS PRN PO INSOMNIA 07/30/20 23:15 08/08/20 11:18 DC 07/30/20 23:17 Trazodone HCl (Desyrel) 200 mg QHS PO 07/31/20 21:00 08/05/20 17:13 DC 08/04/20 21:22 Trazodone HCl (Desyrel) 25 mg TID@0900,1300,1700 PO 08/01/20 09:00 08/05/20 17:13 DC 08/04/20 17:39 Trazodone HCl (Desyrel) 50 mg 1X ONCE PO 07/31/20 17:15 07/31/20 17:32 DC 07/31/20 17:15 Mirtazapine (Remeron) 7.5 mg QHS PO 07/31/20 21:00 08/04/20 17:26 DC 08/03/20 20:33 Divalproex Sodium (Depakote Er) 1,500 mg QHS PO 08/01/20 21:00 08/10/20 20:28 Benztropine Mesylate (Cogentin) 0.5 mg HS PO 08/03/20 21:00 08/04/20 17:26 DC 08/03/20 20:35 Benztropine Mesylate (Cogentin) 1 mg HS PO 08/04/20 21:00 08/10/20 20:26 Mirtazapine (Remeron) 15 mg QHS PO 08/04/20 21:00 08/10/20 20:27 Trazodone HCl (Desyrel) 200 mg PRN QHS PRN PO Sleep 08/05/20 20:00 08/08/20 11:18 DC 08/05/20 20:34 Neomycin/ Polymyxin/Bacitr/ Hydrocort (Cortisporin Ophth) 2 radha BID OU 08/06/20 21:00 08/10/20 20:26 Clonazepam (KlonoPIN) 0.5 mg 1300 PO 08/07/20 13:00 08/09/20 13:00 DC 08/08/20 12:40 Trazodone HCl (Desyrel) 150 mg QHS PO 08/08/20 21:00 08/09/20 15:37 DC 08/08/20 20:19 Trazodone HCl (Desyrel) 150 mg PRN QHS PRN PO INSOMNIA 08/08/20 11:15 08/08/20 22:21 Fluphenazine HCl (Prolixin) 2.5 mg DAILY PO 08/10/20 17:00 08/10/20 18:14 Trazodone HCl (Desyrel) 200 mg QHS PO 08/09/20 21:00 08/10/20 20:27 Current Medications Medications (Trade) Dose Ordered Sig/Luciana Route PRN Reason Start Time Stop Time Status Last Admin Dose Admin Fluphenazine HCl (Prolixin) 2.5 mg DAILY PO 08/10/20 17:00 08/10/20 18:14 I have reviewed the current psychotropics carefully including drug interactions. Risk benefit ratio favors no change other than as noted in my dictated progress note. Diagnosis: Problems: (1) Schizoaffective disorder, bipolar type (2) Impulse control disorder, unspecified (3) Anxiety disorder, unspecified (4) Bipolar I disorder, current or most recent episode manic, with psychotic features with mixed features ELIDIA VELA MD Aug 10, 2020 21:07
--- NOTE | 2020-08-10 23:50 | NUR ---
Patient in his room on assumption of care, awake in bed. He is compliant with assessments and medications taken whole. This nurse reiterated to the patient that he was expected to address his bathroom needs appropriately and not soil his bed or urinate on the floor. He replied "Well that was not on purpose, I just dropped the urinal. Isiahez, what do you take me for? An idiot?" Otherwise, patient was appropriate in his interaction with this nurse at that time. At 2315, staff alerted this nurse that the patient had completely saturated his bed with urine. The decision was made to place patient in a one-piece outfit to ensure that no fall would occur due to urine on the floor. When this nurse offered, the patient said, "OK, I guess. Last time I had an accident while I was asleep I was shit-faced. These look comfortable, like piter." Patient was then instructed to remake his own bed, which he did with very minimal assistance. He got back into bed at that time. Currently awake in bed, quiet. Will continue to monitor.
[2020-08-11] MEDS: LEVOTHYROXINE 100 MCG TABLET PO SCH (05:30)
[2020-08-11 06:41] VITALS: BP 124/85
[2020-08-11] MEDS: NEOMYCIN/BACI/POLY/HC OPHTH OINTMENT 3.5GM TUBE. OU SCH ×2 (08:03→20:37)
[2020-08-11] MEDS: POLYETHYLENE GLYCOL 3350 17 GM PACKET. PO SCH (08:03)
[2020-08-11] MEDS: risperiDONE 2 MG TABLET. PO SCH ×2 (08:04→20:35)
[2020-08-11] MEDS: ASPIRIN CHEWABLE 81 MG TABLET. PO SCH (08:04)
[2020-08-11] MEDS: LISINOPRIL 20 MG TABLET PO SCH (08:04)
[2020-08-11] MEDS: amLODIPine BESYLATE 5 MG TABLET PO SCH (08:04)
[2020-08-11] MEDS ORDERED: traZODone 150 MG TABLET. PO PRN (09:45)
[2020-08-11 11:26] LABS: BASO # 0.1 x10^3/uL (0.0-0.2); BASO % 1 % (0-3); EOS # 0.1 x10^3/uL (0.0-0.7); EOS % 2 % (0-3); HEMATOCRIT 41.1 % (39.0-53.0); HEMOGLOBIN 13.1 g/dL (13.0-17.5); LYMPH # 1.2 x10^3/uL (1.0-4.8); LYMPH % 15 % (24-48); MEAN CORPUSCULAR HEMOGLOBIN 32 pg (25-35); MEAN CORPUSCULAR HGB CONC 32 g/dL (31-37); MEAN CORPUSCULAR VOLUME 100 fL (79-100); MONO # 0.7 x10^3/uL (0.0-1.1); MONO % 9 % (0-9); NEUT # 5.8 x10^3uL (1.8-7.7); NEUT % 73 % (31-73); PLATELET COUNT 276 x10^3/uL (140-400); RED BLOOD COUNT 4.13 x10^6/uL (4.30-5.70); RED CELL DISTRIBUTION WIDTH 14.2 % (11.5-14.5)
[2020-08-11 16:44] VITALS: BP 150/91
[2020-08-11 18:00] LABS: ALBUMIN 3.4 g/dL (3.4-5.0); CALCIUM 8.4 mg/dL (8.5-10.1); GFR 74.3; POTASSIUM 4.3 mmol/L (3.5-5.1); TOTAL BILIRUBIN 0.2 mg/dL (0.2-1.0); TOTAL PROTEIN 6.7 g/dL (6.4-8.2)
[2020-08-11] MEDS: MIRTAZAPINE 15 MG TABLET PO SCH (20:34)
[2020-08-11] MEDS: BENZTROPINE MESYLATE 1 MG TABLET PO SCH (20:35)
[2020-08-11] MEDS: traZODone 100 MG TABLET. PO SCH (20:35)
[2020-08-11] MEDS: QUEtiapine 100 MG TABLET. PO SCH (20:36)
[2020-08-11] MEDS: DIVALPROEX ER 500 MG TAB.ER.24H PO SCH (20:36)
[2020-08-11] MEDS: clonazePAM 1 MG TABLET PO SCH (20:37)
--- NOTE | 2020-08-11 21:18 | PDOC ---
Exam Note: David Note: This note is a late entry for 08/09/2020 covers elements not covered in my initial note. Subjective: The patient was seen face to face in the evening of 08/09/2020 with Lee Ann MARSHALL. Discussed with nursing staff, reviewed the chart. He slept 2-1/2 hours previous night. The patient has been sleepy. He spends much time in bed. The Klonopin 1 p.m. was held as a consequent to this and then he took a nap after that. Review of Systems: No CV, , pulmonary, eye, ENT system symptoms on review. At times gait is festinating but improved. Mental Status Exam: The patient is oriented reasonably. Speech is coherent. Abstraction is fair. Computation is impaired. Language function is intact. Mo od and affect less grandiose and labile. No suicidal or homicidal ideation. Laboratory Data: Reviewed. Impression: Schizoaffective disorder bipolar type mixed with psychotic features. Anxiety disorder unspecified. Impulse control disorder unspecified. Plan: No change from initial note. Assessment: Vital Signs/I&O: Vital Signs Date Time Temp Pulse Resp B/P (MAP) Pulse Ox O2 Delivery O2 Flow Rate FiO2 08/11/20 16:44 98.6 76 20 150/91 (110) 100 08/11/20 06:41 Room Air I & O 08/10/20 08/10/20 08/11/20 15:00 23:00 07:00 Intake Total 480 ml 480 ml Balance 480 ml 480 ml Labs: Laboratory Tests Test 08/11/20 09:10 White Blood Count 8.0 x10^3/uL (4.0-11.0) Red Blood Count 4.13 x10^6/uL (4.30-5.70) L Hemoglobin 13.1 g/dL (13.0-17.5) Hematocrit 41.1 % (39.0-53.0) Mean Corpuscular Volume 100 fL (79-100) Mean Corpuscular Hemoglobin 32 pg (25-35) Mean Corpuscular Hemoglobin Concent 32 g/dL (31-37) Red Cell Distribution Width 14.2 % (11.5-14.5) Platelet Count 276 x10^3/uL (140-400) Neutrophils (%) (Auto) 73 % (31-73) Lymphocytes (%) (Auto) 15 % (24-48) L Monocytes (%) (Auto) 9 % (0-9) Eosinophils (%) (Auto) 2 % (0-3) Basophils (%) (Auto) 1 % (0-3) Neutrophils # (Auto) 5.8 x10^3uL (1.8-7.7) Lymphocytes # (Auto) 1.2 x10^3/uL (1.0-4.8) Monocytes # (Auto) 0.7 x10^3/uL (0.0-1.1) Eosinophils # (Auto) 0.1 x10^3/uL (0.0-0.7) Basophils # (Auto) 0.1 x10^3/uL (0.0-0.2) Sodium Level 139 mmol/L (136-145) Potassium Level 4.3 mmol/L (3.5-5.1) Chloride Level 105 mmol/L (98-107) Carbon Dioxide Level 24 mmol/L (21-32) Anion Gap 10 (6-14) Blood Urea Nitrogen 18 mg/dL (8-26) Creatinine 1.0 mg/dL (0.7-1.3) Estimated GFR (Cockcroft-Gault) 74.3 BUN/Creatinine Ratio 18 (6-20) Glucose Level 117 mg/dL (70-99) H Calcium Level 8.4 mg/dL (8.5-10.1) L Total Bilirubin 0.2 mg/dL (0.2-1.0) Aspartate Amino Transferase (AST) 19 U/L (15-37) Alanine Aminotransferase (ALT) 16 U/L (16-63) Alkaline Phosphatase 49 U/L (46-116) Total Protein 6.7 g/dL (6.4-8.2) Albumin 3.4 g/dL (3.4-5.0) Albumin/Globulin Ratio 1.0 (1.0-1.7) Current Medications: Meds: Laboratory Tests Test 08/11/20 09:10 White Blood Count 8.0 x10^3/uL Red Blood Count 4.13 x10^6/uL Hemoglobin 13.1 g/dL Hematocrit 41.1 % Mean Corpuscular Volume 100 fL Mean Corpuscular Hemoglobin 32 pg Mean Corpuscular Hemoglobin Concent 32 g/dL Red Cell Distribution Width 14.2 % Platelet Count 276 x10^3/uL Neutrophils (%) (Auto) 73 % Lymphocytes (%) (Auto) 15 % Monocytes (%) (Auto) 9 % Eosinophils (%) (Auto) 2 % Basophils (%) (Auto) 1 % Neutrophils # (Auto) 5.8 x10^3uL Lymphocytes # (Auto) 1.2 x10^3/uL Monocytes # (Auto) 0.7 x10^3/uL Eosinophils # (Auto) 0.1 x10^3/uL Basophils # (Auto) 0.1 x10^3/uL Sodium Level 139 mmol/L Potassium Level 4.3 mmol/L Chloride Level 105 mmol/L Carbon Dioxide Level 24 mmol/L Anion Gap 10 Blood Urea Nitrogen 18 mg/dL Creatinine 1.0 mg/dL Estimated GFR (Cockcroft-Gault) 74.3 BUN/Creatinine Ratio 18 Glucose Level 117 mg/dL Calcium Level 8.4 mg/dL Total Bilirubin 0.2 mg/dL Aspartate Amino Transf (AST/SGOT) 19 U/L Alanine Aminotransferase (ALT/SGPT) 16 U/L Alkaline Phosphatase 49 U/L Total Protein 6.7 g/dL Albumin 3.4 g/dL Albumin/Globulin Ratio 1.0 Current Medications Medications (Trade) Dose Ordered Sig/Luciana Route PRN Reason Start Time Stop Time Status Last Admin Dose Admin Acetaminophen (Tylenol) 650 mg PRN Q6HRS PRN PO MILD PAIN / TEMP > 100.3'F 07/24/20 15:30 08/01/20 04:17 Multi-Ingredient Ointment (Analgesic [place]) 1 radha PRN QID PRN TP MUSCLE PAIN 07/24/20 15:30 Al Hydroxide/Mg Hydroxide (Mylanta Plus Xs) 15 ml PRN AFTMEALHC PRN PO DYSPEPSIA 07/24/20 15:30 Magnesium Hydroxide (Milk Of Magnesia) 2,400 mg PRN QHS PRN PO CONSTIPATION 07/24/20 15:30 Nicotine (Nicoderm Cq 7mg Patch) 1 patch DAILY TD 07/25/20 09:00 07/25/20 00:32 DC Nicotine Polacrilex (Nicorette Gum) 2 mg PRN Q1HR PRN BC SMOKING CESSATION 07/24/20 16:30 07/26/20 16:33 DC 07/26/20 15:15 Aspirin (Aspirin Chewable) 81 mg DAILYWBKFT PO 07/25/20 08:00 08/11/20 08:04 Levothyroxine Sodium (Synthroid) 100 mcg DAILY06 PO 07/25/20 06:00 08/11/20 05:30 Lisinopril (Prinivil) 20 mg DAILY PO 07/25/20 09:00 08/11/20 08:04 Lorazepam (Ativan) 1 mg PRN Q4HRS PRN PO ANXIETY / AGITATION 07/24/20 17:00 08/09/20 11:03 Lorazepam (Ativan) 1.5 mg QHS PO 07/24/20 21:00 07/29/20 18:41 DC 07/28/20 19:39 Fluoxetine HCl (PROzac) 20 mg DAILY PO 07/25/20 09:00 07/30/20 18:04 DC 07/30/20 09:56 Risperidone (RisperDAL) 1.5 mg BID PO 07/24/20 21:00 07/29/20 18:41 DC 07/29/20 08:04 Quetiapine Fumarate (SEROquel) 800 mg QHS PO 07/24/20 21:00 08/11/20 20:36 Calcium Carbonate/ Glycine (Tums) 1,000 mg PRN Q8HRS PRN PO INDIGESTION 07/24/20 17:00 08/07/20 04:52 Divalproex Sodium (Depakote Er) 500 mg QHS PO 07/25/20 21:00 07/29/20 18:41 DC 07/28/20 19:38 Polyethylene Glycol (miraLAX) 17 gm DAILY PO 07/26/20 09:00 08/11/20 08:03 Ibuprofen (Motrin) 600 mg PRN Q6HRS PRN PO INFLAMMATION 07/25/20 15:45 08/08/20 07:32 Nicotine (Nicoderm Cq 7mg Patch) 1 patch DAILY TD 07/26/20 18:15 08/10/20 21:12 DC 08/10/20 08:34 Ketoconazole (Nizoral 2% Shampoo) 1 radha PRN DAILY PRN TP SEE COMMENTS 07/28/20 14:15 Amlodipine Besylate (Norvasc) 5 mg 1X ONCE PO 07/29/20 18:00 07/29/20 18:01 DC 07/29/20 17:54 Amlodipine Besylate (Norvasc) 5 mg DAILY PO 07/30/20 09:00 08/11/20 08:04 Divalproex Sodium (Depakote Er) 1,000 mg QHS PO 07/29/20 21:00 08/01/20 18:08 DC 07/31/20 20:54 Risperidone (RisperDAL) 2 mg BID PO 07/29/20 21:00 08/11/20 20:35 Clonazepam (KlonoPIN) 1 mg HS PO 07/29/20 21:00 08/11/20 21:00 DC 08/11/20 20:37 Clonazepam (KlonoPIN) 0.5 mg 0900,1300 PO 07/30/20 09:00 08/06/20 18:16 DC 08/06/20 08:05 Trazodone HCl (Desyrel) 100 mg QHS PO 07/30/20 21:00 07/31/20 17:18 DC 07/30/20 19:58 Trazodone HCl (Desyrel) 100 mg PRN QHS PRN PO INSOMNIA 07/30/20 23:15 08/08/20 11:18 DC 07/30/20 23:17 Trazodone HCl (Desyrel) 200 mg QHS PO 07/31/20 21:00 08/05/20 17:13 DC 08/04/20 21:22 Trazodone HCl (Desyrel) 25 mg TID@0900,1300,1700 PO 08/01/20 09:00 08/05/20 17:13 DC 08/04/20 17:39 Trazodone HCl (Desyrel) 50 mg 1X ONCE PO 07/31/20 17:15 07/31/20 17:32 DC 07/31/20 17:15 Mirtazapine (Remeron) 7.5 mg QHS PO 07/31/20 21:00 08/04/20 17:26 DC 08/03/20 20:33 Divalproex Sodium (Depakote Er) 1,500 mg QHS PO 08/01/20 21:00 08/11/20 20:36 Benztropine Mesylate (Cogentin) 0.5 mg HS PO 08/03/20 21:00 08/04/20 17:26 DC 08/03/20 20:35 Benztropine Mesylate (Cogentin) 1 mg HS PO 08/04/20 21:00 08/11/20 09:51 DC 08/10/20 20:26 Mirtazapine (Remeron) 15 mg QHS PO 08/04/20 21:00 08/11/20 20:34 Trazodone HCl (Desyrel) 200 mg PRN QHS PRN PO Sleep 08/05/20 20:00 08/08/20 11:18 DC 08/05/20 20:34 Neomycin/ Polymyxin/Bacitr/ Hydrocort (Cortisporin Ophth) 2 radha BID OU 08/06/20 21:00 08/11/20 20:37 Clonazepam (KlonoPIN) 0.5 mg 1300 PO 08/07/20 13:00 08/09/20 13:00 DC 08/08/20 12:40 Trazodone HCl (Desyrel) 150 mg QHS PO 08/08/20 21:00 08/09/20 15:37 DC 08/08/20 20:19 Trazodone HCl (Desyrel) 150 mg PRN QHS PRN PO INSOMNIA 08/08/20 11:15 08/11/20 09:43 DC 08/08/20 22:21 Fluphenazine HCl (Prolixin) 2.5 mg DAILY PO 08/10/20 17:00 08/11/20 08:04 Trazodone HCl (Desyrel) 200 mg QHS PO 08/09/20 21:00 08/11/20 20:35 Trazodone HCl (Desyrel) 150 mg PRN QHS PRN PO INSOMNIA 08/11/20 09:45 Benztropine Mesylate (Cogentin) 1 mg HS PO 08/11/20 21:00 08/11/20 20:35 Current Medications Medications (Trade) Dose Ordered Sig/Luciana Route PRN Reason Start Time Stop Time Status Last Admin Dose Admin Benztropine Mesylate (Cogentin) 1 mg HS PO 08/11/20 21:00 08/11/20 20:35 I have reviewed the current psychotropics carefully including drug interactions. Risk benefit ratio favors no change other than as noted in my dictated progress note. Diagnosis: Problems: (1) Schizoaffective disorder, bipolar type (2) Impulse control disorder, unspecified (3) Anxiety disorder, unspecified (4) Bipolar I disorder, current or most recent episode manic, with psychotic features with mixed features ELIDIA VELA MD Aug 11, 2020 21:18
--- NOTE | 2020-08-11 21:46 | PDOC ---
Exam Note: David Note: This note is a late entry for 08/10/2020 covers elements not covered in my initial note. Subjective: The patient was seen face to face in the evening of 08/10/2020 with Sindi MARSHALL. Discussed with nursing staff, reviewed the chart. He slept 4-1/4 hours previous night. He has had a rash probably contributed by the Nicotine patch and we will defer to Dr. Diop. Previous night he urinated inappropriately and later he was given urinal and he filled it with water and was drinking it. I processed this with him. He had to have a sitter by him last evening. He is laying himself on the floor, repeatedly trying to pull the call light. Review of Systems: No CV, , pulmonary, eye, ENT system symptoms on review. Mental Status Exam: The patient is oriented reasonably. Speech is coherent, less pressured. Abstraction is fair. Computation is impaired. Language function is intact. Mood and affect remains anxious, at times labile and grandiose. Laboratory Data: Reviewed. Impression: Bipolar 1 disorder manic with psychotic features. Anxiety disorder unspecified. Impulse control disorder unspecified. Plan: No change from initial note. We have added Prolixin. Maintain rest of the psychotropics unchanged. Assessment: Vital Signs/I&O: Vital Signs Date Time Temp Pulse Resp B/P (MAP) Pulse Ox O2 Delivery O2 Flow Rate FiO2 08/11/20 16:44 98.6 76 20 150/91 (110) 100 08/11/20 06:41 Room Air I & O 08/10/20 08/10/20 08/11/20 14:59 22:59 06:59 Intake Total 480 ml 480 ml Balance 480 ml 480 ml Labs: Laboratory Tests Test 08/11/20 09:10 White Blood Count 8.0 x10^3/uL (4.0-11.0) Red Blood Count 4.13 x10^6/uL (4.30-5.70) L Hemoglobin 13.1 g/dL (13.0-17.5) Hematocrit 41.1 % (39.0-53.0) Mean Corpuscular Volume 100 fL (79-100) Mean Corpuscular Hemoglobin 32 pg (25-35) Mean Corpuscular Hemoglobin Concent 32 g/dL (31-37) Red Cell Distribution Width 14.2 % (11.5-14.5) Platelet Count 276 x10^3/uL (140-400) Neutrophils (%) (Auto) 73 % (31-73) Lymphocytes (%) (Auto) 15 % (24-48) L Monocytes (%) (Auto) 9 % (0-9) Eosinophils (%) (Auto) 2 % (0-3) Basophils (%) (Auto) 1 % (0-3) Neutrophils # (Auto) 5.8 x10^3uL (1.8-7.7) Lymphocytes # (Auto) 1.2 x10^3/uL (1.0-4.8) Monocytes # (Auto) 0.7 x10^3/uL (0.0-1.1) Eosinophils # (Auto) 0.1 x10^3/uL (0.0-0.7) Basophils # (Auto) 0.1 x10^3/uL (0.0-0.2) Sodium Level 139 mmol/L (136-145) Potassium Level 4.3 mmol/L (3.5-5.1) Chloride Level 105 mmol/L (98-107) Carbon Dioxide Level 24 mmol/L (21-32) Anion Gap 10 (6-14) Blood Urea Nitrogen 18 mg/dL (8-26) Creatinine 1.0 mg/dL (0.7-1.3) Estimated GFR (Cockcroft-Gault) 74.3 BUN/Creatinine Ratio 18 (6-20) Glucose Level 117 mg/dL (70-99) H Calcium Level 8.4 mg/dL (8.5-10.1) L Total Bilirubin 0.2 mg/dL (0.2-1.0) Aspartate Amino Transferase (AST) 19 U/L (15-37) Alanine Aminotransferase (ALT) 16 U/L (16-63) Alkaline Phosphatase 49 U/L (46-116) Total Protein 6.7 g/dL (6.4-8.2) Albumin 3.4 g/dL (3.4-5.0) Albumin/Globulin Ratio 1.0 (1.0-1.7) Current Medications: Meds: Laboratory Tests Test 08/11/20 09:10 White Blood Count 8.0 x10^3/uL Red Blood Count 4.13 x10^6/uL Hemoglobin 13.1 g/dL Hematocrit 41.1 % Mean Corpuscular Volume 100 fL Mean Corpuscular Hemoglobin 32 pg Mean Corpuscular Hemoglobin Concent 32 g/dL Red Cell Distribution Width 14.2 % Platelet Count 276 x10^3/uL Neutrophils (%) (Auto) 73 % Lymphocytes (%) (Auto) 15 % Monocytes (%) (Auto) 9 % Eosinophils (%) (Auto) 2 % Basophils (%) (Auto) 1 % Neutrophils # (Auto) 5.8 x10^3uL Lymphocytes # (Auto) 1.2 x10^3/uL Monocytes # (Auto) 0.7 x10^3/uL Eosinophils # (Auto) 0.1 x10^3/uL Basophils # (Auto) 0.1 x10^3/uL Sodium Level 139 mmol/L Potassium Level 4.3 mmol/L Chloride Level 105 mmol/L Carbon Dioxide Level 24 mmol/L Anion Gap 10 Blood Urea Nitrogen 18 mg/dL Creatinine 1.0 mg/dL Estimated GFR (Cockcroft-Gault) 74.3 BUN/Creatinine Ratio 18 Glucose Level 117 mg/dL Calcium Level 8.4 mg/dL Total Bilirubin 0.2 mg/dL Aspartate Amino Transf (AST/SGOT) 19 U/L Alanine Aminotransferase (ALT/SGPT) 16 U/L Alkaline Phosphatase 49 U/L Total Protein 6.7 g/dL Albumin 3.4 g/dL Albumin/Globulin Ratio 1.0 Current Medications Medications (Trade) Dose Ordered Sig/Luciana Route PRN Reason Start Time Stop Time Status Last Admin Dose Admin Acetaminophen (Tylenol) 650 mg PRN Q6HRS PRN PO MILD PAIN / TEMP > 100.3'F 07/24/20 15:30 08/01/20 04:17 Multi-Ingredient Ointment (Analgesic [place]) 1 radha PRN QID PRN TP MUSCLE PAIN 07/24/20 15:30 Al Hydroxide/Mg Hydroxide (Mylanta Plus Xs) 15 ml PRN AFTMEALHC PRN PO DYSPEPSIA 07/24/20 15:30 Magnesium Hydroxide (Milk Of Magnesia) 2,400 mg PRN QHS PRN PO CONSTIPATION 07/24/20 15:30 Nicotine (Nicoderm Cq 7mg Patch) 1 patch DAILY TD 07/25/20 09:00 07/25/20 00:32 DC Nicotine Polacrilex (Nicorette Gum) 2 mg PRN Q1HR PRN BC SMOKING CESSATION 07/24/20 16:30 07/26/20 16:33 DC 07/26/20 15:15 Aspirin (Aspirin Chewable) 81 mg DAILYWBKFT PO 07/25/20 08:00 08/11/20 08:04 Levothyroxine Sodium (Synthroid) 100 mcg DAILY06 PO 07/25/20 06:00 08/11/20 05:30 Lisinopril (Prinivil) 20 mg DAILY PO 07/25/20 09:00 08/11/20 08:04 Lorazepam (Ativan) 1 mg PRN Q4HRS PRN PO ANXIETY / AGITATION 07/24/20 17:00 08/09/20 11:03 Lorazepam (Ativan) 1.5 mg QHS PO 07/24/20 21:00 07/29/20 18:41 DC 07/28/20 19:39 Fluoxetine HCl (PROzac) 20 mg DAILY PO 07/25/20 09:00 07/30/20 18:04 DC 07/30/20 09:56 Risperidone (RisperDAL) 1.5 mg BID PO 07/24/20 21:00 07/29/20 18:41 DC 07/29/20 08:04 Quetiapine Fumarate (SEROquel) 800 mg QHS PO 07/24/20 21:00 08/11/20 20:36 Calcium Carbonate/ Glycine (Tums) 1,000 mg PRN Q8HRS PRN PO INDIGESTION 07/24/20 17:00 08/07/20 04:52 Divalproex Sodium (Depakote Er) 500 mg QHS PO 07/25/20 21:00 07/29/20 18:41 DC 07/28/20 19:38 Polyethylene Glycol (miraLAX) 17 gm DAILY PO 07/26/20 09:00 08/11/20 08:03 Ibuprofen (Motrin) 600 mg PRN Q6HRS PRN PO INFLAMMATION 07/25/20 15:45 08/08/20 07:32 Nicotine (Nicoderm Cq 7mg Patch) 1 patch DAILY TD 07/26/20 18:15 08/10/20 21:12 DC 08/10/20 08:34 Ketoconazole (Nizoral 2% Shampoo) 1 radha PRN DAILY PRN TP SEE COMMENTS 07/28/20 14:15 Amlodipine Besylate (Norvasc) 5 mg 1X ONCE PO 07/29/20 18:00 07/29/20 18:01 DC 07/29/20 17:54 Amlodipine Besylate (Norvasc) 5 mg DAILY PO 07/30/20 09:00 08/11/20 08:04 Divalproex Sodium (Depakote Er) 1,000 mg QHS PO 07/29/20 21:00 08/01/20 18:08 DC 07/31/20 20:54 Risperidone (RisperDAL) 2 mg BID PO 07/29/20 21:00 08/11/20 20:35 Clonazepam (KlonoPIN) 1 mg HS PO 07/29/20 21:00 08/11/20 21:00 DC 08/11/20 20:37 Clonazepam (KlonoPIN) 0.5 mg 0900,1300 PO 07/30/20 09:00 08/06/20 18:16 DC 08/06/20 08:05 Trazodone HCl (Desyrel) 100 mg QHS PO 07/30/20 21:00 07/31/20 17:18 DC 07/30/20 19:58 Trazodone HCl (Desyrel) 100 mg PRN QHS PRN PO INSOMNIA 07/30/20 23:15 08/08/20 11:18 DC 07/30/20 23:17 Trazodone HCl (Desyrel) 200 mg QHS PO 07/31/20 21:00 08/05/20 17:13 DC 08/04/20 21:22 Trazodone HCl (Desyrel) 25 mg TID@0900,1300,1700 PO 08/01/20 09:00 08/05/20 17:13 DC 08/04/20 17:39 Trazodone HCl (Desyrel) 50 mg 1X ONCE PO 07/31/20 17:15 07/31/20 17:32 DC 07/31/20 17:15 Mirtazapine (Remeron) 7.5 mg QHS PO 07/31/20 21:00 08/04/20 17:26 DC 08/03/20 20:33 Divalproex Sodium (Depakote Er) 1,500 mg QHS PO 08/01/20 21:00 08/11/20 20:36 Benztropine Mesylate (Cogentin) 0.5 mg HS PO 08/03/20 21:00 08/04/20 17:26 DC 08/03/20 20:35 Benztropine Mesylate (Cogentin) 1 mg HS PO 08/04/20 21:00 08/11/20 09:51 DC 08/10/20 20:26 Mirtazapine (Remeron) 15 mg QHS PO 08/04/20 21:00 08/11/20 20:34 Trazodone HCl (Desyrel) 200 mg PRN QHS PRN PO Sleep 08/05/20 20:00 08/08/20 11:18 DC 08/05/20 20:34 Neomycin/ Polymyxin/Bacitr/ Hydrocort (Cortisporin Ophth) 2 radha BID OU 08/06/20 21:00 08/11/20 20:37 Clonazepam (KlonoPIN) 0.5 mg 1300 PO 08/07/20 13:00 08/09/20 13:00 DC 08/08/20 12:40 Trazodone HCl (Desyrel) 150 mg QHS PO 08/08/20 21:00 08/09/20 15:37 DC 08/08/20 20:19 Trazodone HCl (Desyrel) 150 mg PRN QHS PRN PO INSOMNIA 08/08/20 11:15 08/11/20 09:43 DC 08/08/20 22:21 Fluphenazine HCl (Prolixin) 2.5 mg DAILY PO 08/10/20 17:00 08/11/20 08:04 Trazodone HCl (Desyrel) 200 mg QHS PO 08/09/20 21:00 08/11/20 20:35 Trazodone HCl (Desyrel) 150 mg PRN QHS PRN PO INSOMNIA 08/11/20 09:45 Benztropine Mesylate (Cogentin) 1 mg HS PO 08/11/20 21:00 08/11/20 20:35 Current Medications Medications (Trade) Dose Ordered Sig/Luciana Route PRN Reason Start Time Stop Time Status Last Admin Dose Admin Benztropine Mesylate (Cogentin) 1 mg HS PO 08/11/20 21:00 08/11/20 20:35 I have reviewed the current psychotropics carefully including drug interactions. Risk benefit ratio favors no change other than as noted in my dictated progress note. Diagnosis: Problems: (1) Schizoaffective disorder, bipolar type (2) Impulse control disorder, unspecified (3) Anxiety disorder, unspecified (4) Bipolar I disorder, current or most recent episode manic, with psychotic features with mixed features ELIDIA VELA MD Aug 11, 2020 21:46
--- NOTE | 2020-08-12 00:56 | NUR ---
Nursing Note The patient was located in his room for his assessment and medication pass. The patient took his medication whole. The patient was pleasant and appropriate during interactions with this nurse. The patient was able to answer name, date and location during his assessment.
[2020-08-12] MEDS: LEVOTHYROXINE 100 MCG TABLET PO SCH (05:47)
[2020-08-12 06:27] VITALS: BP 146/82
--- NOTE | 2020-08-12 08:27 | PDOC ---
Exam Note: David Note: This note is a late entry for 08/11/2020 covers elements not covered in my initial note. Subjective: The patient was seen face to face in the evening of 08/11/2020 with Sindi MARSHALL. Discussed with nursing staff, reviewed the chart. He slept 6 hours previous night. The patient has been cooperative. Previous night he urinated in his bed, not in the toilet. Nicotine patch has been stopped due to rash. He often takes a nap during the day and I met with him his room in the evening. He was already in bed tucked in even though it was around 6 p.m. Review of Systems: No CV, , pulmonary, eye, ENT system symptoms on review. Mental Status Exam: The patient is oriented reasonably. Speech is coherent. Abstraction is fair. Computation is impaired. Language function is intact. Mood and affect less grandiose. Laboratory Data: Reviewed. Impression: Bipolar 1 disorder manic with psychotic features. Anxiety disorder unspecified. Impulse control disorder unspecified. Plan: No change from initial note. Assessment: Vital Signs/I&O: Vital Signs Date Time Temp Pulse Resp B/P (MAP) Pulse Ox O2 Delivery O2 Flow Rate FiO2 08/12/20 06:27 98.6 89 18 146/82 (103) 97 Room Air I & O 08/11/20 08/11/20 08/12/20 15:00 23:00 07:00 Intake Total 600 ml 720 ml Balance 600 ml 720 ml Labs: Laboratory Tests Test 08/11/20 09:10 White Blood Count 8.0 x10^3/uL (4.0-11.0) Red Blood Count 4.13 x10^6/uL (4.30-5.70) L Hemoglobin 13.1 g/dL (13.0-17.5) Hematocrit 41.1 % (39.0-53.0) Mean Corpuscular Volume 100 fL (79-100) Mean Corpuscular Hemoglobin 32 pg (25-35) Mean Corpuscular Hemoglobin Concent 32 g/dL (31-37) Red Cell Distribution Width 14.2 % (11.5-14.5) Platelet Count 276 x10^3/uL (140-400) Neutrophils (%) (Auto) 73 % (31-73) Lymphocytes (%) (Auto) 15 % (24-48) L Monocytes (%) (Auto) 9 % (0-9) Eosinophils (%) (Auto) 2 % (0-3) Basophils (%) (Auto) 1 % (0-3) Neutrophils # (Auto) 5.8 x10^3uL (1.8-7.7) Lymphocytes # (Auto) 1.2 x10^3/uL (1.0-4.8) Monocytes # (Auto) 0.7 x10^3/uL (0.0-1.1) Eosinophils # (Auto) 0.1 x10^3/uL (0.0-0.7) Basophils # (Auto) 0.1 x10^3/uL (0.0-0.2) Sodium Level 139 mmol/L (136-145) Potassium Level 4.3 mmol/L (3.5-5.1) Chloride Level 105 mmol/L (98-107) Carbon Dioxide Level 24 mmol/L (21-32) Anion Gap 10 (6-14) Blood Urea Nitrogen 18 mg/dL (8-26) Creatinine 1.0 mg/dL (0.7-1.3) Estimated GFR (Cockcroft-Gault) 74.3 BUN/Creatinine Ratio 18 (6-20) Glucose Level 117 mg/dL (70-99) H Calcium Level 8.4 mg/dL (8.5-10.1) L Total Bilirubin 0.2 mg/dL (0.2-1.0) Aspartate Amino Transferase (AST) 19 U/L (15-37) Alanine Aminotransferase (ALT) 16 U/L (16-63) Alkaline Phosphatase 49 U/L (46-116) Total Protein 6.7 g/dL (6.4-8.2) Albumin 3.4 g/dL (3.4-5.0) Albumin/Globulin Ratio 1.0 (1.0-1.7) Current Medications: Meds: Laboratory Tests Test 08/11/20 09:10 White Blood Count 8.0 x10^3/uL Red Blood Count 4.13 x10^6/uL Hemoglobin 13.1 g/dL Hematocrit 41.1 % Mean Corpuscular Volume 100 fL Mean Corpuscular Hemoglobin 32 pg Mean Corpuscular Hemoglobin Concent 32 g/dL Red Cell Distribution Width 14.2 % Platelet Count 276 x10^3/uL Neutrophils (%) (Auto) 73 % Lymphocytes (%) (Auto) 15 % Monocytes (%) (Auto) 9 % Eosinophils (%) (Auto) 2 % Basophils (%) (Auto) 1 % Neutrophils # (Auto) 5.8 x10^3uL Lymphocytes # (Auto) 1.2 x10^3/uL Monocytes # (Auto) 0.7 x10^3/uL Eosinophils # (Auto) 0.1 x10^3/uL Basophils # (Auto) 0.1 x10^3/uL Sodium Level 139 mmol/L Potassium Level 4.3 mmol/L Chloride Level 105 mmol/L Carbon Dioxide Level 24 mmol/L Anion Gap 10 Blood Urea Nitrogen 18 mg/dL Creatinine 1.0 mg/dL Estimated GFR (Cockcroft-Gault) 74.3 BUN/Creatinine Ratio 18 Glucose Level 117 mg/dL Calcium Level 8.4 mg/dL Total Bilirubin 0.2 mg/dL Aspartate Amino Transf (AST/SGOT) 19 U/L Alanine Aminotransferase (ALT/SGPT) 16 U/L Alkaline Phosphatase 49 U/L Total Protein 6.7 g/dL Albumin 3.4 g/dL Albumin/Globulin Ratio 1.0 Current Medications Medications (Trade) Dose Ordered Sig/Luciana Route PRN Reason Start Time Stop Time Status Last Admin Dose Admin Acetaminophen (Tylenol) 650 mg PRN Q6HRS PRN PO MILD PAIN / TEMP > 100.3'F 07/24/20 15:30 08/01/20 04:17 Multi-Ingredient Ointment (Analgesic [place]) 1 radha PRN QID PRN TP MUSCLE PAIN 07/24/20 15:30 Al Hydroxide/Mg Hydroxide (Mylanta Plus Xs) 15 ml PRN AFTMEALHC PRN PO DYSPEPSIA 07/24/20 15:30 Magnesium Hydroxide (Milk Of Magnesia) 2,400 mg PRN QHS PRN PO CONSTIPATION 07/24/20 15:30 Nicotine (Nicoderm Cq 7mg Patch) 1 patch DAILY TD 07/25/20 09:00 07/25/20 00:32 DC Nicotine Polacrilex (Nicorette Gum) 2 mg PRN Q1HR PRN BC SMOKING CESSATION 07/24/20 16:30 07/26/20 16:33 DC 07/26/20 15:15 Aspirin (Aspirin Chewable) 81 mg DAILYWBKFT PO 07/25/20 08:00 08/11/20 08:04 Levothyroxine Sodium (Synthroid) 100 mcg DAILY06 PO 07/25/20 06:00 08/12/20 05:47 Lisinopril (Prinivil) 20 mg DAILY PO 07/25/20 09:00 08/11/20 08:04 Lorazepam (Ativan) 1 mg PRN Q4HRS PRN PO ANXIETY / AGITATION 07/24/20 17:00 08/09/20 11:03 Lorazepam (Ativan) 1.5 mg QHS PO 07/24/20 21:00 07/29/20 18:41 DC 07/28/20 19:39 Fluoxetine HCl (PROzac) 20 mg DAILY PO 07/25/20 09:00 07/30/20 18:04 DC 07/30/20 09:56 Risperidone (RisperDAL) 1.5 mg BID PO 07/24/20 21:00 07/29/20 18:41 DC 07/29/20 08:04 Quetiapine Fumarate (SEROquel) 800 mg QHS PO 07/24/20 21:00 08/11/20 20:36 Calcium Carbonate/ Glycine (Tums) 1,000 mg PRN Q8HRS PRN PO INDIGESTION 07/24/20 17:00 08/07/20 04:52 Divalproex Sodium (Depakote Er) 500 mg QHS PO 07/25/20 21:00 07/29/20 18:41 DC 07/28/20 19:38 Polyethylene Glycol (miraLAX) 17 gm DAILY PO 07/26/20 09:00 08/11/20 08:03 Ibuprofen (Motrin) 600 mg PRN Q6HRS PRN PO INFLAMMATION 07/25/20 15:45 08/08/20 07:32 Nicotine (Nicoderm Cq 7mg Patch) 1 patch DAILY TD 07/26/20 18:15 08/10/20 21:12 DC 08/10/20 08:34 Ketoconazole (Nizoral 2% Shampoo) 1 radha PRN DAILY PRN TP SEE COMMENTS 07/28/20 14:15 Amlodipine Besylate (Norvasc) 5 mg 1X ONCE PO 07/29/20 18:00 07/29/20 18:01 DC 07/29/20 17:54 Amlodipine Besylate (Norvasc) 5 mg DAILY PO 07/30/20 09:00 08/11/20 08:04 Divalproex Sodium (Depakote Er) 1,000 mg QHS PO 07/29/20 21:00 08/01/20 18:08 DC 07/31/20 20:54 Risperidone (RisperDAL) 2 mg BID PO 07/29/20 21:00 08/11/20 20:35 Clonazepam (KlonoPIN) 1 mg HS PO 07/29/20 21:00 08/11/20 21:00 DC 08/11/20 20:37 Clonazepam (KlonoPIN) 0.5 mg 0900,1300 PO 07/30/20 09:00 08/06/20 18:16 DC 08/06/20 08:05 Trazodone HCl (Desyrel) 100 mg QHS PO 07/30/20 21:00 07/31/20 17:18 DC 07/30/20 19:58 Trazodone HCl (Desyrel) 100 mg PRN QHS PRN PO INSOMNIA 07/30/20 23:15 08/08/20 11:18 DC 07/30/20 23:17 Trazodone HCl (Desyrel) 200 mg QHS PO 07/31/20 21:00 08/05/20 17:13 DC 08/04/20 21:22 Trazodone HCl (Desyrel) 25 mg TID@0900,1300,1700 PO 08/01/20 09:00 08/05/20 17:13 DC 08/04/20 17:39 Trazodone HCl (Desyrel) 50 mg 1X ONCE PO 07/31/20 17:15 07/31/20 17:32 DC 07/31/20 17:15 Mirtazapine (Remeron) 7.5 mg QHS PO 07/31/20 21:00 08/04/20 17:26 DC 08/03/20 20:33 Divalproex Sodium (Depakote Er) 1,500 mg QHS PO 08/01/20 21:00 08/11/20 20:36 Benztropine Mesylate (Cogentin) 0.5 mg HS PO 08/03/20 21:00 08/04/20 17:26 DC 08/03/20 20:35 Benztropine Mesylate (Cogentin) 1 mg HS PO 08/04/20 21:00 08/11/20 09:51 DC 08/10/20 20:26 Mirtazapine (Remeron) 15 mg QHS PO 08/04/20 21:00 08/11/20 20:34 Trazodone HCl (Desyrel) 200 mg PRN QHS PRN PO Sleep 08/05/20 20:00 08/08/20 11:18 DC 08/05/20 20:34 Neomycin/ Polymyxin/Bacitr/ Hydrocort (Cortisporin Ophth) 2 radha BID OU 08/06/20 21:00 08/11/20 20:37 Clonazepam (KlonoPIN) 0.5 mg 1300 PO 08/07/20 13:00 08/09/20 13:00 DC 08/08/20 12:40 Trazodone HCl (Desyrel) 150 mg QHS PO 08/08/20 21:00 08/09/20 15:37 DC 08/08/20 20:19 Trazodone HCl (Desyrel) 150 mg PRN QHS PRN PO INSOMNIA 08/08/20 11:15 08/11/20 09:43 DC 08/08/20 22:21 Fluphenazine HCl (Prolixin) 2.5 mg DAILY PO 08/10/20 17:00 08/11/20 08:04 Trazodone HCl (Desyrel) 200 mg QHS PO 08/09/20 21:00 08/11/20 20:35 Trazodone HCl (Desyrel) 150 mg PRN QHS PRN PO INSOMNIA 08/11/20 09:45 Benztropine Mesylate (Cogentin) 1 mg HS PO 08/11/20 21:00 08/11/20 20:35 Current Medications Medications (Trade) Dose Ordered Sig/Luciana Route PRN Reason Start Time Stop Time Status Last Admin Dose Admin Benztropine Mesylate (Cogentin) 1 mg HS PO 08/11/20 21:00 08/11/20 20:35 I have reviewed the current psychotropics carefully including drug interactions. Risk benefit ratio favors no change other than as noted in my dictated progress note. Diagnosis: Problems: (1) Schizoaffective disorder, bipolar type (2) Impulse control disorder, unspecified (3) Anxiety disorder, unspecified (4) Bipolar I disorder, current or most recent episode manic, with psychotic features with mixed features ELIDIA VELA MD Aug 12, 2020 08:27
[2020-08-12] MEDS: NEOMYCIN/BACI/POLY/HC OPHTH OINTMENT 3.5GM TUBE. OU SCH (09:00)
[2020-08-12] MEDS: ASPIRIN CHEWABLE 81 MG TABLET. PO SCH (09:15)
[2020-08-12] MEDS: POLYETHYLENE GLYCOL 3350 17 GM PACKET. PO SCH (09:16)
[2020-08-12] MEDS: risperiDONE 2 MG TABLET. PO SCH ×2 (09:16→20:41)
[2020-08-12] MEDS: amLODIPine BESYLATE 5 MG TABLET PO SCH (09:16)
[2020-08-12] MEDS: LISINOPRIL 20 MG TABLET PO SCH (09:16)
--- NOTE | 2020-08-12 12:15 | NUR ---
Pt is calm, cooperative, and compliant. No agitation, no aggression, no hallucinations, no delusions noted. He is compliant with his medication and assessment.
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
--- NOTE | 2020-08-12 15:37 | NUR ---
JOSÉ LUIS spoke with Migdalia from pt facility regarding pt ready for discharge. Migdalia will work on setting up transportation and notify JOSÉ LUIS when she can get it arranged within the next couple of days. Pt will go into quarantine at his facility upon d/c from [facility]. Facility will accept a pending covid swab. JOSÉ LUIS requested from nursing staff for pt be swabbed on 08/13/20 to ensure it was completed in a timely manner. JOSÉ LUIS will notify [facility] staff on specific d/c date once notified from Migd[facility] at [facility] .
[2020-08-12 16:29] VITALS: BP 122/65
[2020-08-12] MEDS: traZODone 100 MG TABLET. PO SCH (20:41)
[2020-08-12] MEDS: QUEtiapine 100 MG TABLET. PO SCH (20:41)
[2020-08-12] MEDS: MIRTAZAPINE 15 MG TABLET PO SCH (20:41)
[2020-08-12] MEDS: BENZTROPINE MESYLATE 1 MG TABLET PO SCH (20:41)
[2020-08-12] MEDS: DIVALPROEX ER 500 MG TAB.ER.24H PO SCH (20:43)
--- NOTE | 2020-08-12 21:09 | PDOC ---
Exam Note: David Note: Please also refer to the separate dictated note~for this date of service dictated separately.~Patient seen individually. Discussed the patient with Nursing staff reviewed the chart.~Reviewed interim history and current functioning. Reviewed vital signs,~Labs/ Radiology~and current medications noted below. Continue current treatment with the changes noted in the dictated addendum note Assessment: Vital Signs/I&O: Vital Signs Date Time Temp Pulse Resp B/P (MAP) Pulse Ox O2 Delivery O2 Flow Rate FiO2 08/12/20 16:29 98.4 76 18 122/65 (84) 96 08/12/20 06:27 Room Air I & O 08/11/20 08/11/20 08/12/20 14:59 22:59 06:59 Intake Total 600 ml 720 ml Balance 600 ml 720 ml Current Medications: Meds: Current Medications Medications (Trade) Dose Ordered Sig/Luciana Route PRN Reason Start Time Stop Time Status Last Admin Dose Admin Acetaminophen (Tylenol) 650 mg PRN Q6HRS PRN PO MILD PAIN / TEMP > 100.3'F 07/24/20 15:30 08/01/20 04:17 Multi-Ingredient Ointment (Analgesic [place]) 1 radha PRN QID PRN TP MUSCLE PAIN 07/24/20 15:30 Al Hydroxide/Mg Hydroxide (Mylanta Plus Xs) 15 ml PRN AFTMEALHC PRN PO DYSPEPSIA 07/24/20 15:30 Magnesium Hydroxide (Milk Of Magnesia) 2,400 mg PRN QHS PRN PO CONSTIPATION 07/24/20 15:30 Nicotine (Nicoderm Cq 7mg Patch) 1 patch DAILY TD 07/25/20 09:00 07/25/20 00:32 DC Nicotine Polacrilex (Nicorette Gum) 2 mg PRN Q1HR PRN BC SMOKING CESSATION 07/24/20 16:30 07/26/20 16:33 DC 07/26/20 15:15 Aspirin (Aspirin Chewable) 81 mg DAILYWBKFT PO 07/25/20 08:00 08/12/20 09:15 Levothyroxine Sodium (Synthroid) 100 mcg DAILY06 PO 07/25/20 06:00 08/12/20 05:47 Lisinopril (Prinivil) 20 mg DAILY PO 07/25/20 09:00 08/12/20 09:16 Lorazepam (Ativan) 1 mg PRN Q4HRS PRN PO ANXIETY / AGITATION 07/24/20 17:00 08/09/20 11:03 Lorazepam (Ativan) 1.5 mg QHS PO 07/24/20 21:00 07/29/20 18:41 DC 07/28/20 19:39 Fluoxetine HCl (PROzac) 20 mg DAILY PO 07/25/20 09:00 07/30/20 18:04 DC 07/30/20 09:56 Risperidone (RisperDAL) 1.5 mg BID PO 07/24/20 21:00 07/29/20 18:41 DC 07/29/20 08:04 Quetiapine Fumarate (SEROquel) 800 mg QHS PO 07/24/20 21:00 08/12/20 20:41 Calcium Carbonate/ Glycine (Tums) 1,000 mg PRN Q8HRS PRN PO INDIGESTION 07/24/20 17:00 08/07/20 04:52 Divalproex Sodium (Depakote Er) 500 mg QHS PO 07/25/20 21:00 07/29/20 18:41 DC 07/28/20 19:38 Polyethylene Glycol (miraLAX) 17 gm DAILY PO 07/26/20 09:00 08/12/20 09:16 Ibuprofen (Motrin) 600 mg PRN Q6HRS PRN PO INFLAMMATION 07/25/20 15:45 08/08/20 07:32 Nicotine (Nicoderm Cq 7mg Patch) 1 patch DAILY TD 07/26/20 18:15 08/10/20 21:12 DC 08/10/20 08:34 Ketoconazole (Nizoral 2% Shampoo) 1 radha PRN DAILY PRN TP SEE COMMENTS 07/28/20 14:15 Amlodipine Besylate (Norvasc) 5 mg 1X ONCE PO 07/29/20 18:00 07/29/20 18:01 DC 07/29/20 17:54 Amlodipine Besylate (Norvasc) 5 mg DAILY PO 07/30/20 09:00 08/12/20 09:16 Divalproex Sodium (Depakote Er) 1,000 mg QHS PO 07/29/20 21:00 08/01/20 18:08 DC 07/31/20 20:54 Risperidone (RisperDAL) 2 mg BID PO 07/29/20 21:00 08/12/20 20:41 Clonazepam (KlonoPIN) 1 mg HS PO 07/29/20 21:00 08/11/20 21:00 DC 08/11/20 20:37 Clonazepam (KlonoPIN) 0.5 mg 0900,1300 PO 07/30/20 09:00 08/06/20 18:16 DC 08/06/20 08:05 Trazodone HCl (Desyrel) 100 mg QHS PO 07/30/20 21:00 07/31/20 17:18 DC 07/30/20 19:58 Trazodone HCl (Desyrel) 100 mg PRN QHS PRN PO INSOMNIA 07/30/20 23:15 08/08/20 11:18 DC 07/30/20 23:17 Trazodone HCl (Desyrel) 200 mg QHS PO 07/31/20 21:00 08/05/20 17:13 DC 08/04/20 21:22 Trazodone HCl (Desyrel) 25 mg TID@0900,1300,1700 PO 08/01/20 09:00 08/05/20 17:13 DC 08/04/20 17:39 Trazodone HCl (Desyrel) 50 mg 1X ONCE PO 07/31/20 17:15 07/31/20 17:32 DC 07/31/20 17:15 Mirtazapine (Remeron) 7.5 mg QHS PO 07/31/20 21:00 08/04/20 17:26 DC 08/03/20 20:33 Divalproex Sodium (Depakote Er) 1,500 mg QHS PO 08/01/20 21:00 08/12/20 20:43 Benztropine Mesylate (Cogentin) 0.5 mg HS PO 08/03/20 21:00 08/04/20 17:26 DC 08/03/20 20:35 Benztropine Mesylate (Cogentin) 1 mg HS PO 08/04/20 21:00 08/11/20 09:51 DC 08/10/20 20:26 Mirtazapine (Remeron) 15 mg QHS PO 08/04/20 21:00 08/12/20 20:41 Trazodone HCl (Desyrel) 200 mg PRN QHS PRN PO Sleep 08/05/20 20:00 08/08/20 11:18 DC 08/05/20 20:34 Neomycin/ Polymyxin/Bacitr/ Hydrocort (Cortisporin Ophth) 2 radha BID OU 08/06/20 21:00 08/12/20 16:22 DC 08/11/20 20:37 Clonazepam (KlonoPIN) 0.5 mg 1300 PO 08/07/20 13:00 08/09/20 13:00 DC 08/08/20 12:40 Trazodone HCl (Desyrel) 150 mg QHS PO 08/08/20 21:00 08/09/20 15:37 DC 08/08/20 20:19 Trazodone HCl (Desyrel) 150 mg PRN QHS PRN PO INSOMNIA 08/08/20 11:15 08/11/20 09:43 DC 08/08/20 22:21 Fluphenazine HCl (Prolixin) 2.5 mg DAILY PO 08/10/20 17:00 08/12/20 09:16 Trazodone HCl (Desyrel) 200 mg QHS PO 08/09/20 21:00 08/12/20 20:41 Trazodone HCl (Desyrel) 150 mg PRN QHS PRN PO INSOMNIA 08/11/20 09:45 Benztropine Mesylate (Cogentin) 1 mg HS PO 08/11/20 21:00 08/12/20 20:41 I have reviewed the current psychotropics carefully including drug interactions. Risk benefit ratio favors no change other than as noted in my dictated progress note. Diagnosis: Problems: (1) Schizoaffective disorder, bipolar type (2) Impulse control disorder, unspecified (3) Anxiety disorder, unspecified (4) Bipolar I disorder, current or most recent episode manic, with psychotic features with mixed features ELIDIA VELA MD Aug 12, 2020 21:09
--- NOTE | 2020-08-13 03:47 | NUR ---
Nursing Note The patient was located in his room for his assessment and medication pass. The patient took his medication whole and was pleasant during interactions. The patient was able to answer name, location and date during his assessment.
[2020-08-13] MEDS: LEVOTHYROXINE 100 MCG TABLET PO SCH (06:09)
[2020-08-13 06:51] VITALS: BP 142/79
[2020-08-13] MEDS: ASPIRIN CHEWABLE 81 MG TABLET. PO SCH (09:38)
[2020-08-13] MEDS: POLYETHYLENE GLYCOL 3350 17 GM PACKET. PO SCH (09:38)
[2020-08-13] MEDS: amLODIPine BESYLATE 5 MG TABLET PO SCH (09:39)
[2020-08-13] MEDS: risperiDONE 2 MG TABLET. PO SCH ×2 (09:39→19:53)
[2020-08-13] MEDS: LISINOPRIL 20 MG TABLET PO SCH (09:40)
[2020-08-13 15:23] VITALS: BP 133/72
[2020-08-13] MEDS: QUEtiapine 100 MG TABLET. PO SCH (19:50)
[2020-08-13] MEDS: BENZTROPINE MESYLATE 1 MG TABLET PO SCH (19:51)
[2020-08-13] MEDS: DIVALPROEX ER 500 MG TAB.ER.24H PO SCH (19:51)
[2020-08-13] MEDS: traZODone 100 MG TABLET. PO SCH (19:52)
[2020-08-13] MEDS: MIRTAZAPINE 15 MG TABLET PO SCH (19:52)
--- NOTE | 2020-08-13 21:06 | PDOC ---
Exam Note: David Note: Please also refer to the separate dictated note~for this date of service dictated separately.~Patient seen individually. Discussed the patient with Nursing staff reviewed the chart.~Reviewed interim history and current functioning. Reviewed vital signs,~Labs/ Radiology~and current medications noted below. Continue current treatment with the changes noted in the dictated addendum note Assessment: Vital Signs/I&O: Vital Signs Date Time Temp Pulse Resp B/P (MAP) Pulse Ox O2 Delivery O2 Flow Rate FiO2 08/13/20 15:23 97.5 131 18 133/72 (92) 96 08/13/20 06:51 Room Air I & O 08/12/20 08/12/20 08/13/20 15:00 23:00 07:00 Intake Total 960 ml 600 ml Balance 960 ml 600 ml Current Medications: Meds: Current Medications Medications (Trade) Dose Ordered Sig/Luciana Route PRN Reason Start Time Stop Time Status Last Admin Dose Admin Acetaminophen (Tylenol) 650 mg PRN Q6HRS PRN PO MILD PAIN / TEMP > 100.3'F 07/24/20 15:30 08/01/20 04:17 Multi-Ingredient Ointment (Analgesic [place]) 1 radha PRN QID PRN TP MUSCLE PAIN 07/24/20 15:30 Al Hydroxide/Mg Hydroxide (Mylanta Plus Xs) 15 ml PRN AFTMEALHC PRN PO DYSPEPSIA 07/24/20 15:30 Magnesium Hydroxide (Milk Of Magnesia) 2,400 mg PRN QHS PRN PO CONSTIPATION 07/24/20 15:30 08/13/20 20:16 Nicotine (Nicoderm Cq 7mg Patch) 1 patch DAILY TD 07/25/20 09:00 07/25/20 00:32 DC Nicotine Polacrilex (Nicorette Gum) 2 mg PRN Q1HR PRN BC SMOKING CESSATION 07/24/20 16:30 07/26/20 16:33 DC 07/26/20 15:15 Aspirin (Aspirin Chewable) 81 mg DAILYWBKFT PO 07/25/20 08:00 08/13/20 09:38 Levothyroxine Sodium (Synthroid) 100 mcg DAILY06 PO 07/25/20 06:00 08/13/20 06:09 Lisinopril (Prinivil) 20 mg DAILY PO 07/25/20 09:00 2/2/21 09:40 Lorazepam (Ativan) 1 mg PRN Q4HRS PRN PO ANXIETY / AGITATION 07/24/20 17:00 08/09/20 11:03 Lorazepam (Ativan) 1.5 mg QHS PO 07/24/20 21:00 07/29/20 18:41 DC 07/28/20 19:39 Fluoxetine HCl (PROzac) 20 mg DAILY PO 07/25/20 09:00 07/30/20 18:04 DC 07/30/20 09:56 Risperidone (RisperDAL) 1.5 mg BID PO 07/24/20 21:00 07/29/20 18:41 DC 07/29/20 08:04 Quetiapine Fumarate (SEROquel) 800 mg QHS PO 07/24/20 21:00 08/13/20 19:50 Calcium Carbonate/ Glycine (Tums) 1,000 mg PRN Q8HRS PRN PO INDIGESTION 07/24/20 17:00 08/07/20 04:52 Divalproex Sodium (Depakote Er) 500 mg QHS PO 07/25/20 21:00 07/29/20 18:41 DC 07/28/20 19:38 Polyethylene Glycol (miraLAX) 17 gm DAILY PO 07/26/20 09:00 08/13/20 09:38 Ibuprofen (Motrin) 600 mg PRN Q6HRS PRN PO INFLAMMATION 07/25/20 15:45 08/08/20 07:32 Nicotine (Nicoderm Cq 7mg Patch) 1 patch DAILY TD 07/26/20 18:15 08/10/20 21:12 DC 08/10/20 08:34 Ketoconazole (Nizoral 2% Shampoo) 1 radha PRN DAILY PRN TP SEE COMMENTS 07/28/20 14:15 Amlodipine Besylate (Norvasc) 5 mg 1X ONCE PO 07/29/20 18:00 07/29/20 18:01 DC 07/29/20 17:54 Amlodipine Besylate (Norvasc) 5 mg DAILY PO 07/30/20 09:00 08/13/20 09:39 Divalproex Sodium (Depakote Er) 1,000 mg QHS PO 07/29/20 21:00 08/01/20 18:08 DC 07/31/20 20:54 Risperidone (RisperDAL) 2 mg BID PO 07/29/20 21:00 08/13/20 19:53 Clonazepam (KlonoPIN) 1 mg HS PO 07/29/20 21:00 08/11/20 21:00 DC 08/11/20 20:37 Clonazepam (KlonoPIN) 0.5 mg 0900,1300 PO 07/30/20 09:00 08/06/20 18:16 DC 08/06/20 08:05 Trazodone HCl (Desyrel) 100 mg QHS PO 07/30/20 21:00 07/31/20 17:18 DC 07/30/20 19:58 Trazodone HCl (Desyrel) 100 mg PRN QHS PRN PO INSOMNIA 07/30/20 23:15 08/08/20 11:18 DC 07/30/20 23:17 Trazodone HCl (Desyrel) 200 mg QHS PO 07/31/20 21:00 08/05/20 17:13 DC 08/04/20 21:22 Trazodone HCl (Desyrel) 25 mg TID@0900,1300,1700 PO 08/01/20 09:00 08/05/20 17:13 DC 08/04/20 17:39 Trazodone HCl (Desyrel) 50 mg 1X ONCE PO 07/31/20 17:15 07/31/20 17:32 DC 07/31/20 17:15 Mirtazapine (Remeron) 7.5 mg QHS PO 07/31/20 21:00 08/04/20 17:26 DC 08/03/20 20:33 Divalproex Sodium (Depakote Er) 1,500 mg QHS PO 08/01/20 21:00 08/13/20 19:51 Benztropine Mesylate (Cogentin) 0.5 mg HS PO 08/03/20 21:00 08/04/20 17:26 DC 08/03/20 20:35 Benztropine Mesylate (Cogentin) 1 mg HS PO 08/04/20 21:00 08/11/20 09:51 DC 08/10/20 20:26 Mirtazapine (Remeron) 15 mg QHS PO 08/04/20 21:00 08/13/20 19:52 Trazodone HCl (Desyrel) 200 mg PRN QHS PRN PO Sleep 08/05/20 20:00 08/08/20 11:18 DC 08/05/20 20:34 Neomycin/ Polymyxin/Bacitr/ Hydrocort (Cortisporin Ophth) 2 radha BID OU 08/06/20 21:00 08/12/20 16:22 DC 08/11/20 20:37 Clonazepam (KlonoPIN) 0.5 mg 1300 PO 08/07/20 13:00 08/09/20 13:00 DC 08/08/20 12:40 Trazodone HCl (Desyrel) 150 mg QHS PO 08/08/20 21:00 08/09/20 15:37 DC 08/08/20 20:19 Trazodone HCl (Desyrel) 150 mg PRN QHS PRN PO INSOMNIA 08/08/20 11:15 08/11/20 09:43 DC 08/08/20 22:21 Fluphenazine HCl (Prolixin) 2.5 mg DAILY PO 08/10/20 17:00 08/13/20 09:39 Trazodone HCl (Desyrel) 200 mg QHS PO 08/09/20 21:00 08/13/20 19:52 Trazodone HCl (Desyrel) 150 mg PRN QHS PRN PO INSOMNIA 08/11/20 09:45 Benztropine Mesylate (Cogentin) 1 mg HS PO 08/11/20 21:00 08/13/20 19:51 I have reviewed the current psychotropics carefully including drug interactions. Risk benefit ratio favors no change other than as noted in my dictated progress note. Diagnosis: Problems: (1) Schizoaffective disorder, bipolar type (2) Impulse control disorder, unspecified (3) Anxiety disorder, unspecified (4) Bipolar I disorder, current or most recent episode manic, with psychotic fea tures with mixed features ELIDIA VELA MD Aug 13, 2020 21:06
--- NOTE | 2020-08-14 03:48 | NUR ---
Nursing Note The patient was located in his room for his assessment and mediation pass. The patient took his medication whole. The patient requested PRN Milk of Magnesia with his HS medication R/T constipation. The patient was able to answer his assessment questions appropriately.
[2020-08-14] MEDS: LEVOTHYROXINE 100 MCG TABLET PO SCH (05:26)
[2020-08-14 06:29] VITALS: BP 115/61
[2020-08-14] MEDS: ASPIRIN CHEWABLE 81 MG TABLET. PO SCH (08:08)
[2020-08-14] MEDS: risperiDONE 2 MG TABLET. PO SCH ×2 (08:08→21:02)
[2020-08-14] MEDS: amLODIPine BESYLATE 5 MG TABLET PO SCH (08:09)
[2020-08-14] MEDS: LISINOPRIL 20 MG TABLET PO SCH (08:09)
[2020-08-14] MEDS: POLYETHYLENE GLYCOL 3350 17 GM PACKET. PO SCH (08:09)
--- NOTE | 2020-08-14 08:54 | PDOC ---
Exam Note: David Note: This note is a late entry for 08/12/2020 covers elements not covered in my initial note. Subjective: The patient was seen face to face in the morning of 08/12/2020 for a treatment team meeting with Mckenzie Gil, Rama Robbins and Clarisa (mental health social worker), Shannon Arreola, activity therapy and Janet MARSHALL. Discussed with nursing staff, reviewed the chart. He slept 4 hours previous night. Appetite is 100%, sleeping average 4 hours. Also met with the patient in the evening with Marcial MARSHALL. At the treatment team meeting we discussed, he was restless. No agitation. He will be in quarantine once he returns back to [facility], once he is on multiple antipsychotics and that is what was needed to stabilize him. I will add a note in the discharge summary on how to taper down some of the psychotropics. Review of Systems: No CV, , pulmonary, eye, ENT system symptoms on review. Gait is slightly festinating but improved. Mental Status Exam: The patient is oriented reasonably. Speech is coherent. Abstraction is fair. Computation is impaired. Language function is intact. Mood and affect appears stable, at times withdrawn. Laboratory Data: Reviewed. Impression: Bipolar 1 disorder manic with psychotic features. Anxiety disorder unspecified. Impulse control disorder unspecified. Plan: No change from initial note. Assessment: Vital Signs/I&O: Vital Signs Date Time Temp Pulse Resp B/P (MAP) Pulse Ox O2 Delivery O2 Flow Rate FiO2 08/14/20 08:09 62 115/61 08/14/20 06:29 98.0 17 98 Room Air I & O 08/13/20 08/13/20 08/14/20 15:00 23:00 07:00 Intake Total 760 ml 360 ml 240 ml Balance 760 ml 360 ml 240 ml Current Medications: Meds: Current Medications Medications (Trade) Dose Ordered Sig/Luciana Route PRN Reason Start Time Stop Time Status Last Admin Dose Admin Acetaminophen (Tylenol) 650 mg PRN Q6HRS PRN PO MILD PAIN / TEMP > 100.3'F 07/24/20 15:30 08/01/20 04:17 Multi-Ingredient Ointment (Analgesic [place]) 1 radha PRN QID PRN TP MUSCLE PAIN 07/24/20 15:30 Al Hydroxide/Mg Hydroxide (Mylanta Plus Xs) 15 ml PRN AFTMEALHC PRN PO DYSPEPSIA 07/24/20 15:30 Magnesium Hydroxide (Milk Of Magnesia) 2,400 mg PRN QHS PRN PO CONSTIPATION 07/24/20 15:30 08/13/20 20:16 Nicotine (Nicoderm Cq 7mg Patch) 1 patch DAILY TD 07/25/20 09:00 07/25/20 00:32 DC Nicotine Polacrilex (Nicorette Gum) 2 mg PRN Q1HR PRN BC SMOKING CESSATION 07/24/20 16:30 07/26/20 16:33 DC 07/26/20 15:15 Aspirin (Aspirin Chewable) 81 mg DAILYWBKFT PO 07/25/20 08:00 08/14/20 08:08 Levothyroxine Sodium (Synthroid) 100 mcg DAILY06 PO 07/25/20 06:00 08/14/20 05:26 Lisinopril (Prinivil) 20 mg DAILY PO 07/25/20 09:00 08/14/20 08:09 Lorazepam (Ativan) 1 mg PRN Q4HRS PRN PO ANXIETY / AGITATION 07/24/20 17:00 08/09/20 11:03 Lorazepam (Ativan) 1.5 mg QHS PO 07/24/20 21:00 07/29/20 18:41 DC 07/28/20 19:39 Fluoxetine HCl (PROzac) 20 mg DAILY PO 07/25/20 09:00 07/30/20 18:04 DC 07/30/20 09:56 Risperidone (RisperDAL) 1.5 mg BID PO 07/24/20 21:00 07/29/20 18:41 DC 07/29/20 08:04 Quetiapine Fumarate (SEROquel) 800 mg QHS PO 07/24/20 21:00 08/13/20 19:50 Calcium Carbonate/ Glycine (Tums) 1,000 mg PRN Q8HRS PRN PO INDIGESTION 07/24/20 17:00 08/07/20 04:52 Divalproex Sodium (Depakote Er) 500 mg QHS PO 07/25/20 21:00 07/29/20 18:41 DC 07/28/20 19:38 Polyethylene Glycol (miraLAX) 17 gm DAILY PO 07/26/20 09:00 08/14/20 08:09 Ibuprofen (Motrin) 600 mg PRN Q6HRS PRN PO INFLAMMATION 07/25/20 15:45 08/08/20 07:32 Nicotine (Nicoderm Cq 7mg Patch) 1 patch DAILY TD 07/26/20 18:15 08/10/20 21:12 DC 08/10/20 08:34 Ketoconazole (Nizoral 2% Shampoo) 1 radha PRN DAILY PRN TP SEE COMMENTS 07/28/20 14:15 Amlodipine Besylate (Norvasc) 5 mg 1X ONCE PO 07/29/20 18:00 07/29/20 18:01 DC 07/29/20 17:54 Amlodipine Besylate (Norvasc) 5 mg DAILY PO 07/30/20 09:00 08/14/20 08:09 Divalproex Sodium (Depakote Er) 1,000 mg QHS PO 07/29/20 21:00 08/01/20 18:08 DC 07/31/20 20:54 Risperidone (RisperDAL) 2 mg BID PO 07/29/20 21:00 08/14/20 08:08 Clonazepam (KlonoPIN) 1 mg HS PO 07/29/20 21:00 08/11/20 21:00 DC 08/11/20 20:37 Clonazepam (KlonoPIN) 0.5 mg 0900,1300 PO 07/30/20 09:00 08/06/20 18:16 DC 08/06/20 08:05 Trazodone HCl (Desyrel) 100 mg QHS PO 07/30/20 21:00 07/31/20 17:18 DC 07/30/20 19:58 Trazodone HCl (Desyrel) 100 mg PRN QHS PRN PO INSOMNIA 07/30/20 23:15 08/08/20 11:18 DC 07/30/20 23:17 Trazodone HCl (Desyrel) 200 mg QHS PO 07/31/20 21:00 08/05/20 17:13 DC 08/04/20 21:22 Trazodone HCl (Desyrel) 25 mg TID@0900,1300,1700 PO 08/01/20 09:00 08/05/20 17:13 DC 08/04/20 17:39 Trazodone HCl (Desyrel) 50 mg 1X ONCE PO 07/31/20 17:15 07/31/20 17:32 DC 07/31/20 17:15 Mirtazapine (Remeron) 7.5 mg QHS PO 07/31/20 21:00 08/04/20 17:26 DC 08/03/20 20:33 Divalproex Sodium (Depakote Er) 1,500 mg QHS PO 08/01/20 21:00 08/13/20 19:51 Benztropine Mesylate (Cogentin) 0.5 mg HS PO 08/03/20 21:00 08/04/20 17:26 DC 08/03/20 20:35 Benztropine Mesylate (Cogentin) 1 mg HS PO 08/04/20 21:00 08/11/20 09:51 DC 08/10/20 20:26 Mirtazapine (Remeron) 15 mg QHS PO 08/04/20 21:00 08/13/20 19:52 Trazodone HCl (Desyrel) 200 mg PRN QHS PRN PO Sleep 08/05/20 20:00 08/08/20 11:18 DC 08/05/20 20:34 Neomycin/ Polymyxin/Bacitr/ Hydrocort (Cortisporin Ophth) 2 radha BID OU 08/06/20 21:00 08/12/20 16:22 DC 08/11/20 20:37 Clonazepam (KlonoPIN) 0.5 mg 1300 PO 08/07/20 13:00 08/09/20 13:00 DC 08/08/20 12:40 Trazodone HCl (Desyrel) 150 mg QHS PO 08/08/20 21:00 08/09/20 15:37 DC 08/08/20 20:19 Trazodone HCl (Desyrel) 150 mg PRN QHS PRN PO INSOMNIA 08/08/20 11:15 08/11/20 09:43 DC 08/08/20 22:21 Fluphenazine HCl (Prolixin) 2.5 mg DAILY PO 08/10/20 17:00 08/14/20 08:09 Trazodone HCl (Desyrel) 200 mg QHS PO 08/09/20 21:00 08/13/20 19:52 Trazodone HCl (Desyrel) 150 mg PRN QHS PRN PO INSOMNIA 08/11/20 09:45 Benztropine Mesylate (Cogentin) 1 mg HS PO 08/11/20 21:00 08/13/20 19:51 I have reviewed the current psychotropics carefully including drug interactions. Risk benefit ratio favors no change other than as noted in my dictated progress note. Diagnosis: Problems: (1) Schizoaffective disorder, bipolar type (2) Impulse control disorder, unspecified (3) Anxiety disorder, unspecified (4) Bipolar I disorder, current or most recent episode manic, with psychotic features with mixed features ELIDIA VELA MD Aug 14, 2020 08:54
--- NOTE | 2020-08-14 09:25 | PDOC ---
Exam Note: David Note: This note is a late entry for 08/13/2020 covers elements not covered in my initial note. Subjective: The patient was seen face to face in the evening of 08/13/2020 with Marcial MARSHALL. Discussed with nursing staff, reviewed the chart. He slept 6 hours previous night. Overall the patient has been pleasant, less manic, more cooperative. I met with him in his room. He was lying in bed earlier in the evening. Review of Systems: No CV, , pulmonary, eye, ENT system symptoms on review. Mental Status Exam: The patient is alert and oriented. Speech is coherent. Ab straction is fair. Computation is somewhat impaired. Language function is intact. Mood and affect is improved. No suicidal or homicidal ideation. Laboratory Data: Reviewed. Impression: Bipolar 1 disorder manic with psychotic features. Anxiety disorder unspecified. Impulse control disorder unspecified. Plan: No change from initial note. He has been attending groups as well. Assessment: Vital Signs/I&O: Vital Signs Date Time Temp Pulse Resp B/P (MAP) Pulse Ox O2 Delivery O2 Flow Rate FiO2 08/14/20 08:09 62 115/61 08/14/20 06:29 98.0 17 98 Room Air I & O 08/13/20 08/13/20 08/14/20 15:00 23:00 07:00 Intake Total 760 ml 360 ml 240 ml Balance 760 ml 360 ml 240 ml Current Medications: Meds: Current Medications Medications (Trade) Dose Ordered Sig/Luciana Route PRN Reason Start Time Stop Time Status Last Admin Dose Admin Acetaminophen (Tylenol) 650 mg PRN Q6HRS PRN PO MILD PAIN / TEMP > 100.3'F 07/24/20 15:30 08/01/20 04:17 Multi-Ingredient Ointment (Analgesic [place]) 1 radha PRN QID PRN TP MUSCLE PAIN 07/24/20 15:30 Al Hydroxide/Mg Hydroxide (Mylanta Plus Xs) 15 ml PRN AFTMEALHC PRN PO DYSPEPSIA 07/24/20 15:30 Magnesium Hydroxide (Milk Of Magnesia) 2,400 mg PRN QHS PRN PO CONSTIPATION 07/24/20 15:30 08/13/20 20:16 Nicotine (Nicoderm Cq 7mg Patch) 1 patch DAILY TD 07/25/20 09:00 07/25/20 00:32 DC Nicotine Polacrilex (Nicorette Gum) 2 mg PRN Q1HR PRN BC SMOKING CESSATION 07/24/20 16:30 07/26/20 16:33 DC 07/26/20 15:15 Aspirin (Aspirin Chewable) 81 mg DAILYWBKFT PO 07/25/20 08:00 08/14/20 08:08 Levothyroxine Sodium (Synthroid) 100 mcg DAILY06 PO 07/25/20 06:00 08/14/20 05:26 Lisinopril (Prinivil) 20 mg DAILY PO 07/25/20 09:00 08/14/20 08:09 Lorazepam (Ativan) 1 mg PRN Q4HRS PRN PO ANXIETY / AGITATION 07/24/20 17:00 08/09/20 11:03 Lorazepam (Ativan) 1.5 mg QHS PO 07/24/20 21:00 07/29/20 18:41 DC 07/28/20 19:39 Fluoxetine HCl (PROzac) 20 mg DAILY PO 07/25/20 09:00 07/30/20 18:04 DC 07/30/20 09:56 Risperidone (RisperDAL) 1.5 mg BID PO 07/24/20 21:00 07/29/20 18:41 DC 07/29/20 08:04 Quetiapine Fumarate (SEROquel) 800 mg QHS PO 07/24/20 21:00 08/13/20 19:50 Calcium Carbonate/ Glycine (Tums) 1,000 mg PRN Q8HRS PRN PO INDIGESTION 07/24/20 17:00 08/07/20 04:52 Divalproex Sodium (Depakote Er) 500 mg QHS PO 07/25/20 21:00 07/29/20 18:41 DC 07/28/20 19:38 Polyethylene Glycol (miraLAX) 17 gm DAILY PO 07/26/20 09:00 08/14/20 08:09 Ibuprofen (Motrin) 600 mg PRN Q6HRS PRN PO INFLAMMATION 07/25/20 15:45 08/08/20 07:32 Nicotine (Nicoderm Cq 7mg Patch) 1 patch DAILY TD 07/26/20 18:15 08/10/20 21:12 DC 08/10/20 08:34 Ketoconazole (Nizoral 2% Shampoo) 1 radha PRN DAILY PRN TP SEE COMMENTS 07/28/20 14:15 Amlodipine Besylate (Norvasc) 5 mg 1X ONCE PO 07/29/20 18:00 07/29/20 18:01 DC 07/29/20 17:54 Amlodipine Besylate (Norvasc) 5 mg DAILY PO 07/30/20 09:00 08/14/20 08:09 Divalproex Sodium (Depakote Er) 1,000 mg QHS PO 07/29/20 21:00 08/01/20 18:08 DC 07/31/20 20:54 Risperidone (RisperDAL) 2 mg BID PO 07/29/20 21:00 08/14/20 08:08 Clonazepam (KlonoPIN) 1 mg HS PO 07/29/20 21:00 08/11/20 21:00 DC 08/11/20 20:37 Clonazepam (KlonoPIN) 0.5 mg 0900,1300 PO 07/30/20 09:00 08/06/20 18:16 DC 08/06/20 08:05 Trazodone HCl (Desyrel) 100 mg QHS PO 07/30/20 21:00 07/31/20 17:18 DC 07/30/20 19:58 Trazodone HCl (Desyrel) 100 mg PRN QHS PRN PO INSOMNIA 07/30/20 23:15 08/08/20 11:18 DC 07/30/20 23:17 Trazodone HCl (Desyrel) 200 mg QHS PO 07/31/20 21:00 08/05/20 17:13 DC 08/04/20 21:22 Trazodone HCl (Desyrel) 25 mg TID@0900,1300,1700 PO 08/01/20 09:00 08/05/20 17:13 DC 08/04/20 17:39 Trazodone HCl (Desyrel) 50 mg 1X ONCE PO 07/31/20 17:15 07/31/20 17:32 DC 07/31/20 17:15 Mirtazapine (Remeron) 7.5 mg QHS PO 07/31/20 21:00 08/04/20 17:26 DC 08/03/20 20:33 Divalproex Sodium (Depakote Er) 1,500 mg QHS PO 08/01/20 21:00 08/13/20 19:51 Benztropine Mesylate (Cogentin) 0.5 mg HS PO 08/03/20 21:00 08/04/20 17:26 DC 08/03/20 20:35 Benztropine Mesylate (Cogentin) 1 mg HS PO 08/04/20 21:00 08/11/20 09:51 DC 08/10/20 20:26 Mirtazapine (Remeron) 15 mg QHS PO 08/04/20 21:00 08/13/20 19:52 Trazodone HCl (Desyrel) 200 mg PRN QHS PRN PO Sleep 08/05/20 20:00 08/08/20 11:18 DC 08/05/20 20:34 Neomycin/ Polymyxin/Bacitr/ Hydrocort (Cortisporin Ophth) 2 radha BID OU 08/06/20 21:00 08/12/20 16:22 DC 08/11/20 20:37 Clonazepam (KlonoPIN) 0.5 mg 1300 PO 08/07/20 13:00 08/09/20 13:00 DC 08/08/20 12:40 Trazodone HCl (Desyrel) 150 mg QHS PO 08/08/20 21:00 08/09/20 15:37 DC 08/08/20 20:19 Trazodone HCl (Desyrel) 150 mg PRN QHS PRN PO INSOMNIA 08/08/20 11:15 08/11/20 09:43 DC 08/08/20 22:21 Fluphenazine HCl (Prolixin) 2.5 mg DAILY PO 08/10/20 17:00 08/14/20 08:09 Trazodone HCl (Desyrel) 200 mg QHS PO 08/09/20 21:00 08/13/20 19:52 Trazodone HCl (Desyrel) 150 mg PRN QHS PRN PO INSOMNIA 08/11/20 09:45 Benztropine Mesylate (Cogentin) 1 mg HS PO 08/11/20 21:00 08/13/20 19:51 I have reviewed the current psychotropics carefully including drug interactions. Risk benefit ratio favors no change other than as noted in my dictated progress note. Diagnosis: Problems: (1) Schizoaffective disorder, bipolar type (2) Impulse control disorder, unspecified (3) Anxiety disorder, unspecified (4) Bipolar I disorder, current or most recent episode manic, with psychotic features with mixed features ELIDIA VELA MD Aug 14, 2020 09:25
--- NOTE | 2020-08-14 11:34 | NUR ---
[facility] Social Work Discharge Planning Form Patient Name CATHY RODRÍGUEZ Admit Date: 07/24/2020 DISCHARGE PLAN Discharge Destination: [facility] [place] [place] Care Assessment: No Level II Assessment: No Transportation: Facility is sending [facility] to p/u at 1400. Special Instructions/Notes: Please fax discharge orders and current medication list. DISCHARGE TO FACILITY Facility: [facility] Address: [address] [place] [address] Contact Name: Migdalia, trade mark examiner PCP: Dr. Henderson
--- NOTE | 2020-08-14 14:39 | NUR ---
PT IN DAY ROOM PARTICIPATING IN GROUP. NO BEHAVIORS NOTED SO FAR THIS SHIFT. PT IS MED COMPLIANT WITH MEDICATIONS WHOLE WITH WATER.
[2020-08-14 16:24] VITALS: BP 113/72
[2020-08-14] MEDS: QUEtiapine 100 MG TABLET. PO SCH (21:02)
[2020-08-14] MEDS: MIRTAZAPINE 15 MG TABLET PO SCH (21:03)
[2020-08-14] MEDS: BENZTROPINE MESYLATE 1 MG TABLET PO SCH (21:03)
[2020-08-14] MEDS: DIVALPROEX ER 500 MG TAB.ER.24H PO SCH (21:03)
[2020-08-14] MEDS: traZODone 100 MG TABLET. PO SCH (21:03)
--- NOTE | 2020-08-14 21:05 | PDOC ---
Exam Note: David Note: Please also refer to the separate dictated note~for this date of service dictated separately.~Patient seen individually. Discussed the patient with Nursing staff reviewed the chart.~Reviewed interim history and current functioning. Reviewed vital signs,~Labs/ Radiology~and current medications noted below. Continue current treatment with the changes noted in the dictated addendum note Assessment: Vital Signs/I&O: Vital Signs Date Time Temp Pulse Resp B/P (MAP) Pulse Ox O2 Delivery O2 Flow Rate FiO2 08/14/20 16:24 97.8 97 18 113/72 (86) 93 08/14/20 06:29 Room Air I & O 08/13/20 08/13/20 08/14/20 15:00 23:00 07:00 Intake Total 760 ml 360 ml 240 ml Balance 760 ml 360 ml 240 ml Current Medications: Meds: Current Medications Medications (Trade) Dose Ordered Sig/Luciana Route PRN Reason Start Time Stop Time Status Last Admin Dose Admin Acetaminophen (Tylenol) 650 mg PRN Q6HRS PRN PO MILD PAIN / TEMP > 100.3'F 07/24/20 15:30 08/01/20 04:17 Multi-Ingredient Ointment (Analgesic [place]) 1 radha PRN QID PRN TP MUSCLE PAIN 07/24/20 15:30 Al Hydroxide/Mg Hydroxide (Mylanta Plus Xs) 15 ml PRN AFTMEALHC PRN PO DYSPEPSIA 07/24/20 15:30 Magnesium Hydroxide (Milk Of Magnesia) 2,400 mg PRN QHS PRN PO CONSTIPATION 07/24/20 15:30 08/13/20 20:16 Nicotine (Nicoderm Cq 7mg Patch) 1 patch DAILY TD 07/25/20 09:00 07/25/20 00:32 DC Nicotine Polacrilex (Nicorette Gum) 2 mg PRN Q1HR PRN BC SMOKING CESSATION 07/24/20 16:30 07/26/20 16:33 DC 07/26/20 15:15 Aspirin (Aspirin Chewable) 81 mg DAILYWBKFT PO 07/25/20 08:00 08/14/20 08:08 Levothyroxine Sodium (Synthroid) 100 mcg DAILY06 PO 07/25/20 06:00 08/14/20 05:26 Lisinopril (Prinivil) 20 mg DAILY PO 07/25/20 09:00 08/14/20 08:09 Lorazepam (Ativan) 1 mg PRN Q4HRS PRN PO ANXIETY / AGITATION 07/24/20 17:00 08/09/20 11:03 Lorazepam (Ativan) 1.5 mg QHS PO 07/24/20 21:00 07/29/20 18:41 DC 07/28/20 19:39 Fluoxetine HCl (PROzac) 20 mg DAILY PO 07/25/20 09:00 07/30/20 18:04 DC 07/30/20 09:56 Risperidone (RisperDAL) 1.5 mg BID PO 07/24/20 21:00 07/29/20 18:41 DC 07/29/20 08:04 Quetiapine Fumarate (SEROquel) 800 mg QHS PO 07/24/20 21:00 08/14/20 21:02 Calcium Carbonate/ Glycine (Tums) 1,000 mg PRN Q8HRS PRN PO INDIGESTION 07/24/20 17:00 08/07/20 04:52 Divalproex Sodium (Depakote Er) 500 mg QHS PO 07/25/20 21:00 07/29/20 18:41 DC 07/28/20 19:38 Polyethylene Glycol (miraLAX) 17 gm DAILY PO 07/26/20 09:00 08/14/20 08:09 Ibuprofen (Motrin) 600 mg PRN Q6HRS PRN PO INFLAMMATION 07/25/20 15:45 08/08/20 07:32 Nicotine (Nicoderm Cq 7mg Patch) 1 patch DAILY TD 07/26/20 18:15 08/10/20 21:12 DC 08/10/20 08:34 Ketoconazole (Nizoral 2% Shampoo) 1 radha PRN DAILY PRN TP SEE COMMENTS 07/28/20 14:15 Amlodipine Besylate (Norvasc) 5 mg 1X ONCE PO 07/29/20 18:00 07/29/20 18:01 DC 07/29/20 17:54 Amlodipine Besylate (Norvasc) 5 mg DAILY PO 07/30/20 09:00 08/14/20 08:09 Divalproex Sodium (Depakote Er) 1,000 mg QHS PO 07/29/20 21:00 08/01/20 18:08 DC 07/31/20 20:54 Risperidone (RisperDAL) 2 mg BID PO 07/29/20 21:00 08/14/20 21:02 Clonazepam (KlonoPIN) 1 mg HS PO 07/29/20 21:00 08/11/20 21:00 DC 08/11/20 20:37 Clonazepam (KlonoPIN) 0.5 mg 0900,1300 PO 07/30/20 09:00 08/06/20 18:16 DC 08/06/20 08:05 Trazodone HCl (Desyrel) 100 mg QHS PO 07/30/20 21:00 07/31/20 17:18 DC 07/30/20 19:58 Trazodone HCl (Desyrel) 100 mg PRN QHS PRN PO INSOMNIA 07/30/20 23:15 08/08/20 11:18 DC 07/30/20 23:17 Trazodone HCl (Desyrel) 200 mg QHS PO 07/31/20 21:00 08/05/20 17:13 DC 08/04/20 21:22 Trazodone HCl (Desyrel) 25 mg TID@0900,1300,1700 PO 08/01/20 09:00 08/05/20 17:13 DC 08/04/20 17:39 Trazodone HCl (Desyrel) 50 mg 1X ONCE PO 07/31/20 17:15 07/31/20 17:32 DC 07/31/20 17:15 Mirtazapine (Remeron) 7.5 mg QHS PO 07/31/20 21:00 08/04/20 17:26 DC 08/03/20 20:33 Divalproex Sodium (Depakote Er) 1,500 mg QHS PO 08/01/20 21:00 08/14/20 21:03 Benztropine Mesylate (Cogentin) 0.5 mg HS PO 08/03/20 21:00 08/04/20 17:26 DC 08/03/20 20:35 Benztropine Mesylate (Cogentin) 1 mg HS PO 08/04/20 21:00 08/11/20 09:51 DC 08/10/20 20:26 Mirtazapine (Remeron) 15 mg QHS PO 08/04/20 21:00 08/14/20 21:03 Trazodone HCl (Desyrel) 200 mg PRN QHS PRN PO Sleep 08/05/20 20:00 08/08/20 11:18 DC 08/05/20 20:34 Neomycin/ Polymyxin/Bacitr/ Hydrocort (Cortisporin Ophth) 2 radha BID OU 08/06/20 21:00 08/12/20 16:22 DC 08/11/20 20:37 Clonazepam (KlonoPIN) 0.5 mg 1300 PO 08/07/20 13:00 08/09/20 13:00 DC 08/08/20 12:40 Trazodone HCl (Desyrel) 150 mg QHS PO 08/08/20 21:00 08/09/20 15:37 DC 08/08/20 20:19 Trazodone HCl (Desyrel) 150 mg PRN QHS PRN PO INSOMNIA 08/08/20 11:15 08/11/20 09:43 DC 08/08/20 22:21 Fluphenazine HCl (Prolixin) 2.5 mg DAILY PO 08/10/20 17:00 08/14/20 08:09 Trazodone HCl (Desyrel) 200 mg QHS PO 08/09/20 21:00 08/14/20 21:03 Trazodone HCl (Desyrel) 150 mg PRN QHS PRN PO INSOMNIA 08/11/20 09:45 Benztropine Mesylate (Cogentin) 1 mg HS PO 08/11/20 21:00 08/14/20 21:03 I have reviewed the current psychotropics carefully including drug interactions. Risk benefit ratio favors no change other than as noted in my dictated progress note. Diagnosis: Problems: (1) Schizoaffective disorder, bipolar type (2) Impulse control disorder, unspecified (3) Anxiety disorder, unspecified (4) Bipolar I disorder, current or most recent episode manic, with psychotic features with mixed features ELIDIA VELA MD Aug 14, 2020 21:05
--- NOTE | 2020-08-14 23:01 | PN ---
DATE: 08/14/2020 PSYCHIATRIC PROGRESS NOTE Covers elements not covered in my initial note 08/14/2020. SUBJECTIVE: I met with the patient evening of 08/14/2020 in his room. The patient slept 2-1/4 hours previous night per JOANNA White. Overall, he has done reasonably well, spends much time in his room, was listening to some loud music in his room as I met with him in the evening. REVIEW OF SYSTEMS: No CV, , pulmonary, eye system symptoms on review. MENTAL STATUS EXAM: Reasonably oriented. Speech is coherent, less pressured. Abstraction fair, computation impaired, language function intact. Mood and affect, generally improved. LABORATORY DATA: Reviewed. IMPRESSION: Unchanged from initial note. PLAN: No change from initial note. MAN Josias VELA MD DR: LATA/lauro JOB#: [id number] / [id number]
[2020-08-14] MEDS: LORazepam 1 MG TABLET PO PRN (23:25)
--- NOTE | 2020-08-15 00:54 | NUR ---
Nursing Note Pt alert and oriented, pleasant med compliant. Later asks for an ativan prn. States he's excited about discharge tomorrow and that he is ready. Denies any complaints, is calm and cooperative.
[2020-08-15] MEDS ORDERED: LISI20TA18 PO (02:13)
[2020-08-15] MEDS ORDERED: AMLO-186 PO (02:13)
[2020-08-15] MEDS ORDERED: ASPI-630 PO (02:14)
[2020-08-15] MEDS ORDERED: CALC200T23 PO (02:17)
[2020-08-15] MEDS ORDERED: MAG30ORA6 PO (02:18)
[2020-08-15] MEDS ORDERED: MAGN24003 PO (02:19)
[2020-08-15] MEDS ORDERED: POLY17PO5 PO (02:19)
[2020-08-15] MEDS ORDERED: LEVO100T5 PO (02:20)
[2020-08-15] MEDS ORDERED: KETO120S4 TP (02:21)
[2020-08-15] MEDS ORDERED: LORA-254 PO (02:22)
[2020-08-15] MEDS ORDERED: BENZ1TAB5 PO (02:22)
[2020-08-15] MEDS ORDERED: FLUP5TAB13 PO (02:23)
[2020-08-15] MEDS ORDERED: QUET400T4 PO (02:24)
[2020-08-15] MEDS ORDERED: MIRT15TA3 PO (02:26)
[2020-08-15] MEDS ORDERED: RISP2TAB33 PO (02:26)
[2020-08-15] MEDS ORDERED: TRAZ-125 PO (02:28)
[2020-08-15] MEDS ORDERED: TRAZ150T49 PO (02:30)
[2020-08-15] MEDS ORDERED: DIVA500T4 PO (02:33)
[2020-08-15] MEDS ORDERED: ACET325T9 PO (02:36)
[2020-08-15] MEDS ORDERED: IBUP400T18 PO (02:37)
[2020-08-15] MEDS ORDERED: METH57CR17 TP (02:37)
[2020-08-15] MEDS: LEVOTHYROXINE 100 MCG TABLET PO SCH (05:21)
[2020-08-15 06:07] VITALS: BP 137/75
[2020-08-15 08:10] VITALS: BP 137/75
[2020-08-15] MEDS: risperiDONE 2 MG TABLET. PO SCH (08:10)
[2020-08-15] MEDS: LISINOPRIL 20 MG TABLET PO SCH (08:10)
[2020-08-15] MEDS: ASPIRIN CHEWABLE 81 MG TABLET. PO SCH (08:10)
[2020-08-15] MEDS: amLODIPine BESYLATE 5 MG TABLET PO SCH (08:10)
[2020-08-15] MEDS: POLYETHYLENE GLYCOL 3350 17 GM PACKET. PO SCH (08:11)
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
--- NOTE | 2020-08-15 13:57 | NUR ---
Patient in room at time of assessment. Patient is alert and oriented with no complaints. Patient is calm and cooperative and takes medications whole with no problems. Patient planned to discharge today. No further concerns or complaints.
--- NOTE | 2020-08-15 14:15 | NUR ---
Tobacco Discharge Note [facility] Tobacco Hotline called with patient prior to discharge, YES Tobacco cessation medication listed with current medications for discharge. YES Transition Record was faxed to follow-up provider with the following elements: Reason for admission, procedures, tests, principal diagnosis, pending studies, patient instructions, 01/02 contact information for unit, phone number to obtain pending test results, plan for follow-up care, physician follow-up, advanced directive information, and medication list with dose, duration and instructions. This information was included in the following documents: History and physical, lab results, study results, progress notes, social work planning form, DC instruction form, patient visit summary, and medication reconciliation form. Date & time record faxed: 08/15/20 Record faxed to: [facility] Record discussed with/ report given to: [facility]
--- NOTE | 2020-08-15 21:17 | PDOC ---
Exam Note: David Note: Please also refer to the separate dictated note~for this date of service dictated separately.~Patient seen individually. Discussed the patient with Nursing staff reviewed the chart.~Reviewed interim history and current functioning. Reviewed vital signs,~Labs/ Radiology~and current medications noted below. Continue current treatment with the changes noted in the dictated addendum note Assessment: Vital Signs/I&O: Vital Signs Date Time Temp Pulse Resp B/P (MAP) Pulse Ox O2 Delivery O2 Flow Rate FiO2 08/15/20 08:10 77 137/75 08/15/20 06:07 98.0 18 97 08/14/20 06:29 Room Air I & O 08/14/20 08/14/20 08/15/20 15:00 23:00 07:00 Intake Total 720 ml 720 ml Balance 720 ml 720 ml Current Medications: Meds: Current Medications Medications (Trade) Dose Ordered Sig/Luciana Route PRN Reason Start Time Stop Time Status Last Admin Dose Admin Acetaminophen (Tylenol) 650 mg PRN Q6HRS PRN PO MILD PAIN / TEMP > 100.3'F 07/24/20 15:30 08/15/20 14:25 DC 08/01/20 04:17 Multi-Ingredient Ointment (Analgesic [place]) 1 radha PRN QID PRN TP MUSCLE PAIN 07/24/20 15:30 08/15/20 14:25 DC Al Hydroxide/Mg Hydroxide (Mylanta Plus Xs) 15 ml PRN AFTMEALHC PRN PO DYSPEPSIA 07/24/20 15:30 08/15/20 14:25 DC Magnesium Hydroxide (Milk Of Magnesia) 2,400 mg PRN QHS PRN PO CONSTIPATION 07/24/20 15:30 08/15/20 14:25 DC 08/13/20 20:16 Nicotine (Nicoderm Cq 7mg Patch) 1 patch DAILY TD 07/25/20 09:00 07/25/20 00:32 DC Nicotine Polacrilex (Nicorette Gum) 2 mg PRN Q1HR PRN BC SMOKING CESSATION 07/24/20 16:30 07/26/20 16:33 DC 07/26/20 15:15 Aspirin (Aspirin Chewable) 81 mg DAILYWBKFT PO 07/25/20 08:00 08/15/20 14:25 DC 08/15/20 08:10 Levothyroxine Sodium (Synthroid) 100 mcg DAILY06 PO 07/25/20 06:00 08/15/20 14:25 DC 08/15/20 05:21 Lisinopril (Prinivil) 20 mg DAILY PO 07/25/20 09:00 08/15/20 14:25 DC 08/15/20 08:10 Lorazepam (Ativan) 1 mg PRN Q4HRS PRN PO ANXIETY / AGITATION 07/24/20 17:00 08/15/20 14:25 DC 08/14/20 23:25 Lorazepam (Ativan) 1.5 mg QHS PO 07/24/20 21:00 07/29/20 18:41 DC 07/28/20 19:39 Fluoxetine HCl (PROzac) 20 mg DAILY PO 07/25/20 09:00 07/30/20 18:04 DC 07/30/20 09:56 Risperidone (RisperDAL) 1.5 mg BID PO 07/24/20 21:00 07/29/20 18:41 DC 07/29/20 08:04 Quetiapine Fumarate (SEROquel) 800 mg QHS PO 07/24/20 21:00 08/15/20 14:25 DC 08/14/20 21:02 Calcium Carbonate/ Glycine (Tums) 1,000 mg PRN Q8HRS PRN PO INDIGESTION 07/24/20 17:00 08/15/20 14:25 DC 08/07/20 04:52 Divalproex Sodium (Depakote Er) 500 mg QHS PO 07/25/20 21:00 07/29/20 18:41 DC 07/28/20 19:38 Polyethylene Glycol (miraLAX) 17 gm DAILY PO 07/26/20 09:00 08/15/20 14:25 DC 08/15/20 08:11 Ibuprofen (Motrin) 600 mg PRN Q6HRS PRN PO INFLAMMATION 07/25/20 15:45 08/15/20 14:25 DC 08/08/20 07:32 Nicotine (Nicoderm Cq 7mg Patch) 1 patch DAILY TD 07/26/20 18:15 08/10/20 21:12 DC 08/10/20 08:34 Ketoconazole (Nizoral 2% Shampoo) 1 radha PRN DAILY PRN TP SEE COMMENTS 07/28/20 14:15 08/15/20 14:25 DC Amlodipine Besylate (Norvasc) 5 mg 1X ONCE PO 07/29/20 18:00 07/29/20 18:01 DC 07/29/20 17:54 Amlodipine Besylate (Norvasc) 5 mg DAILY PO 07/30/20 09:00 08/15/20 14:25 DC 08/15/20 08:10 Divalproex Sodium (Depakote Er) 1,000 mg QHS PO 07/29/20 21:00 08/01/20 18:08 DC 07/31/20 20:54 Risperidone (RisperDAL) 2 mg BID PO 07/29/20 21:00 08/15/20 14:25 DC 08/15/20 08:10 Clonazepam (KlonoPIN) 1 mg HS PO 07/29/20 21:00 08/11/20 21:00 DC 08/11/20 20:37 Clonazepam (KlonoPIN) 0.5 mg 0900,1300 PO 07/30/20 09:00 08/06/20 18:16 DC 08/06/20 08:05 Trazodone HCl (Desyrel) 100 mg QHS PO 07/30/20 21:00 07/31/20 17:18 DC 07/30/20 19:58 Trazodone HCl (Desyrel) 100 mg PRN QHS PRN PO INSOMNIA 07/30/20 23:15 08/08/20 11:18 DC 07/30/20 23:17 Trazodone HCl (Desyrel) 200 mg QHS PO 07/31/20 21:00 08/05/20 17:13 DC 08/04/20 21:22 Trazodone HCl (Desyrel) 25 mg TID@0900,1300,1700 PO 08/01/20 09:00 08/05/20 17:13 DC 08/04/20 17:39 Trazodone HCl (Desyrel) 50 mg 1X ONCE PO 07/31/20 17:15 07/31/20 17:32 DC 07/31/20 17:15 Mirtazapine (Remeron) 7.5 mg QHS PO 07/31/20 21:00 08/04/20 17:26 DC 08/03/20 20:33 Divalproex Sodium (Depakote Er) 1,500 mg QHS PO 08/01/20 21:00 08/15/20 14:25 DC 08/14/20 21:03 Benztropine Mesylate (Cogentin) 0.5 mg HS PO 08/03/20 21:00 08/04/20 17:26 DC 08/03/20 20:35 Benztropine Mesylate (Cogentin) 1 mg HS PO 08/04/20 21:00 08/11/20 09:51 DC 08/10/20 20:26 Mirtazapine (Remeron) 15 mg QHS PO 08/04/20 21:00 08/15/20 14:25 DC 08/14/20 21:03 Trazodone HCl (Desyrel) 200 mg PRN QHS PRN PO Sleep 08/05/20 20:00 08/08/20 11:18 DC 08/05/20 20:34 Neomycin/ Polymyxin/Bacitr/ Hydrocort (Cortisporin Ophth) 2 radha BID OU 08/06/20 21:00 08/12/20 16:22 DC 08/11/20 20:37 Clonazepam (KlonoPIN) 0.5 mg 1300 PO 08/07/20 13:00 08/09/20 13:00 DC 08/08/20 12:40 Trazodone HCl (Desyrel) 150 mg QHS PO 08/08/20 21:00 08/09/20 15:37 DC 08/08/20 20:19 Trazodone HCl (Desyrel) 150 mg PRN QHS PRN PO INSOMNIA 08/08/20 11:15 08/11/20 09:43 DC 08/08/20 22:21 Fluphenazine HCl (Prolixin) 2.5 mg DAILY PO 08/10/20 17:00 08/15/20 14:25 DC 08/15/20 08:10 Trazodone HCl (Desyrel) 200 mg QHS PO 08/09/20 21:00 08/15/20 14:25 DC 08/14/20 21:03 Trazodone HCl (Desyrel) 150 mg PRN QHS PRN PO INSOMNIA 08/11/20 09:45 08/15/20 14:25 DC Benztropine Mesylate (Cogentin) 1 mg HS PO 08/11/20 21:00 08/15/20 14:25 DC 08/14/20 21:03 I have reviewed the current psychotropics carefully including drug interactions. Risk benefit ratio favors no change other than as noted in my dictated progress note. Diagnosis: Problems: (1) Schizoaffective disorder, bipolar type (2) Impulse control disorder, unspecified (3) Anxiety disorder, unspecified (4) Bipolar I disorder, current or most recent episode manic, with psychotic features with mixed features ELIDIA VELA MD Aug 15, 2020 21:17
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
== END 2020-08-15 14:25 | DRG 885 ==
LOC: GEROPSY 14:30
PROVIDERS: ADMIT Psychiatry & Neurology Psychiatry; ATTEND Psychiatry & Neurology Psychiatry
DX: F25.0 Schizoaffective disorder, bipolar type (principal); E03.9 Hypothyroidism, unspecified; E78.5 Hyperlipidemia, unspecified; F12.90 Cannabis use, unspecified, uncomplicated; F17.200 Nicotine dependence, unspecified, uncomplicated; F41.9 Anxiety disorder, unspecified; G47.00 Insomnia, unspecified; F63.9 Impulse disorder, unspecified; J45.909 Unspecified asthma, uncomplicated; K21.9 Gastro-esophageal reflux disease without esophagitis; Z88.8 Allergy status to other drugs, medicaments and biological substances; Z79.899 Other long term (current) drug therapy; Z20.822 Contact with and (suspected) exposure to COVID-19
CPT/HCPCS: 36415; 80053; 80061; 80164; 81001; 82140; 82306; 82607; 83036; 83540; 83550; 83735; 84436; 84443; 84480; 85025; 85379; 86592; 93005; 99407; U0003